=== PATIENT | male | born 1980 | race American Indian/Alaskan Native ===

== ENCOUNTER 2016-08-03 06:03 | Inpatient (IN) | payer OTHER ==
--- NOTE | 2016-08-03 07:09 | Emergency Department Report ---
ED Neuro Deficit HPI - General Chief Complaint: Altered Mental Status Stated Complaint: AMS Time Seen by Provider: 08/03/16 06:28 Source: patient, EMS Mode of arrival: Stretcher Limitations: Altered Mental Status - History of Present Illness Initial Comments: The patient has a limited ability to give a history due to pre-existing a facial and stroke. He presents with a family member. They both state he's had a headache for the past at least 2 days. Over this period as well he has been more confused than usual. The family member also states when he walks he has been drifting to the left. He has previously suffered a right sided stroke with left-sided weakness. However, the family member is stating that this got "99% better". She states there is no change in his speech which is obviously dysarthric and aphasic. Currently the headache is moderate in intensity. Patient does not complain of any neck pain. He's had no fever or chills. -: days(s) Location: other (question increasing left-sided weakness) History of same: Yes Place: home Severity: moderate Quality: weak, other (headache and confusion) Improves With: none Worsens With: none On Anticoagulants: Yes (Coumadin) Context: gradual onset Associated Symptoms: denies other symptoms - Related Data Home Medications: Home Medications Medication Instructions Recorded Confirmed Last Taken Aspirin [Aspirin BABY CHEW TAB] 81 mg PO DAILY 09/01/15 05/28/16 12/09/15 Warfarin [Coumadin] 5 mg PO DAILY@1700 12/10/15 05/28/16 12/09/15 Famotidine [Pepcid] 1 tab PO DAILY 05/28/16 05/28/16 Unknown Lasix TAB 0.5 tab PO DAILY 05/28/16 05/28/16 Unknown carBAMazepine [TEGretol] 100 mg PO BID 05/28/16 05/28/16 Unknown Previous Rx's Medication Instructions Recorded Last Taken Type Butalb/Acetamin/Caff 50-325-40 1 tab PO Q8HR PRN #14 tablet 05/28/16 Unknown Rx [Fioricet] carBAMazepine [TEGretol] 100 mg PO DAILY #30 tab.chew 05/28/16 Unknown Rx levETIRAcetam [Keppra TAB] 750 mg PO BID #60 tablet 05/28/16 Unknown Rx Allergies/Adverse Reactions: Allergies Allergy/AdvReac Type Severity Reaction Status Date / Time No Known Allergies Allergy Verified 05/28/16 14:33 ED Review of Systems ROS: Stated complaint: AMS Other details as noted in HPI Comment: All other systems reviewed and negative ED Past Medical Hx - Past Medical History Hx Hypertension: Yes Hx CVA: Yes (Feb 2015) Hx Heart Attack/AMI: Yes Hx Congestive Heart Failure: Yes Hx Diabetes: No Hx Seizures: Yes Hx Asthma: No Hx COPD: No Hx HIV: No 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 - Surgical History Hx Pacemaker: Yes Hx Internal Defibrillator: Yes - Social History Smoking Status: Former Smoker Substance Use Type: None - Medications Home Medications: Home Medications Medication Instructions Recorded Confirmed Last Taken Type Aspirin [Aspirin BABY CHEW TAB] 81 mg PO DAILY 09/01/15 05/28/16 12/09/15 History Warfarin [Coumadin] 5 mg PO DAILY@1700 12/10/15 05/28/16 12/09/15 History Butalb/Acetamin/Caff 50-325-40 1 tab PO Q8HR PRN #14 tablet 05/28/16 Unknown Rx [Fioricet] Famotidine [Pepcid] 1 tab PO DAILY 05/28/16 05/28/16 Unknown History Lasix TAB 0.5 tab PO DAILY 05/28/16 05/28/16 Unknown History carBAMazepine [TEGretol] 100 mg PO BID 05/28/16 05/28/16 Unknown History carBAMazepine [TEGretol] 100 mg PO DAILY #30 tab.chew 05/28/16 Unknown Rx levETIRAcetam [Keppra TAB] 750 mg PO BID #60 tablet 05/28/16 Unknown Rx ED Neuro Physical Exam - General Limitations: Other (aphasia) General appearance: alert, in no apparent distress Suspected Stroke: No (not acute stroke but can't exclude subacute) - Head Head exam: Present: atraumatic, normocephalic - Eye Eye exam: Present: normal appearance, EOMI, other (slight anisocoria noted). Absent: scleral icterus - ENT ENT exam: Present: normal exam, mucous membranes moist - Neck Neck exam: Present: normal inspection. Absent: tenderness, meningismus - Respiratory Respiratory exam: Present: normal lung sounds bilaterally. Absent: respiratory distress - Cardiovascular Cardiovascular Exam: Present: regular rate, normal rhythm. Absent: systolic murmur, diastolic murmur, rubs, gallop - GI/Abdominal GI/Abdominal exam: Present: soft, normal bowel sounds. Absent: distended, tenderness, guarding, rebound, rigid - Rectal Rectal exam: Present: deferred - Extremities Exam Extremities exam: Present: normal inspection - Back Exam Back exam: Present: normal inspection - Neurological Exam Neurological exam: Present: alert, motor sensory deficit (no briana drift), other (aphasia). Absent: CN II-XII intact (facial paresis) - NIHSS Assessment Interval: Baseline 1a. Level of Consciousness: alert 1b. LOC Questions: answers 1 question correctly 1c. LOC Commands: performs tasks correctly 2. Best Gaze: normal 3. Visual: no visual loss 4. Facial Palsy: partial paralysis 5b. Motor Arm Right: no drift 5a. Motor Arm Left: no drift 6a. Motor Leg Left: no drift 6b. Motor Leg Right: no drift 7. Limb Ataxia: absent 8. Sensory: normal 9. Best Language: mild/moderate aphasia 10. Dysarthria: mild/moderate dysarthria 11. Extinction/Inattention: no abnormality Total Score: 5 Stroke Severity: Moderate Stroke - Psychiatric Psychiatric exam: Present: normal affect, normal mood - Skin Skin exam: Present: warm, dry, intact, normal color. Absent: rash ED Course Vital Signs 08/03/16 08/03/16 08/03/16 06:10 06:11 06:17 Temperature 98.6 F Pulse Rate 72 Respiratory 14 26 H Rate Blood Pressure 137/77 137/77 Blood Pressure 137/77 [Left] O2 Sat by Pulse 99 Oximetry 08/03/16 08/03/16 07:00 07:06 Temperature Pulse Rate 74 73 Respiratory 22 27 H Rate Blood Pressure 137/77 137/77 Blood Pressure [Left] O2 Sat by Pulse 100 100 Oximetry - Reevaluation(s) Reevaluation #1: Neurological change. I didn't find evidence of an acute stroke on neurological exam. I am uncertain as to the patient's baseline. In any case he is not a candidate for TPA certainly as if he had a stroke his symptoms would be of more than 2 days duration. In addition he requires anticoagulation for his reactive conditions. 08/03/16 08:17 Reevaluation #2: Discussed with hospitalist will admit. I reviewed the patient's prior catheterization by Dr. Gao in 2015. Reveals an atrioventricular septal defect with elevated right-sided pressures/moderate pulmonary hypertension. 08/03/16 08:26 - Lab Data Result diagrams: 08/03/16 06:57 08/03/16 06:57 Lab Results 08/03/16 08/03/16 08/03/16 Range/Units 06:57 06:57 06:57 WBC 6.8 (4.5-11.0) K/mm3 RBC 4.89 (3.65-5.03) M/mm3 Hgb 14.7 (11.8-15.2) gm/dl Hct 43.5 (35.5-45.6) % MCV 89 (84-94) fl MCH 30 (28-32) pg MCHC 34 (32-34) % RDW 15.2 (13.2-15.2) % Plt Count 160 (140-440) K/mm3 Lymph % (Auto) 16.2 (13.4-35.0) % Gladwin % (Auto) 7.9 H (0.0-7.3) % Eos % (Auto) 0.9 (0.0-4.3) % Baso % (Auto) 0.6 (0.0-1.8) % Lymph # 1.1 L (1.2-5.4) K/mm3 Gladwin # 0.5 (0.0-0.8) K/mm3 Eos # 0.1 (0.0-0.4) K/mm3 Baso # 0.0 (0.0-0.1) K/mm3 Seg Neutrophils % 74.4 H (40.0-70.0) % Seg Neutrophils # 5.1 (1.8-7.7) K/mm3 PT 14.8 (12.2-14.9) Sec. INR 1.17 H (0.87-1.13) APTT 28.0 (24.2-36.6) Sec. Thrombin Time (15.1-19.6) Sec. Sodium 142 (137-145) mmol/L Potassium 3.5 L (3.6-5.0) mmol/L Chloride 99.9 (98-107) mmol/L Carbon Dioxide 25 (22-30) mmol/L Anion Gap 21 mmol/L BUN 8 L (9-20) mg/dL Creatinine 0.9 (0.8-1.5) mg/dL Estimated GFR > 60 ml/min BUN/Creatinine Ratio 8.88 % Glucose 120 H (75-100) mg/dL Calcium 9.4 (8.4-10.2) mg/dL Total Bilirubin (0.1-1.2) mg/dL Direct Bilirubin (0-0.2) mg/dL Indirect Bilirubin mg/dL AST (5-40) units/L ALT (7-56) units/L Alkaline Phosphatase (35-129) units/L Troponin T < 0.010 (0.00-0.029) ng/mL NT-Pro-B Natriuret Pep (0-450) pg/mL Total Protein (6.3-8.2) g/dL Albumin (3.9-5) g/dL Albumin/Globulin Ratio % 08/03/16 08/03/16 Range/Units 06:57 06:57 WBC (4.5-11.0) K/mm3 RBC (3.65-5.03) M/mm3 Hgb (11.8-15.2) gm/dl Hct (35.5-45.6) % MCV (84-94) fl MCH (28-32) pg MCHC (32-34) % RDW (13.2-15.2) % Plt Count (140-440) K/mm3 Lymph % (Auto) (13.4-35.0) % Gladwin % (Auto) (0.0-7.3) % Eos % (Auto) (0.0-4.3) % Baso % (Auto) (0.0-1.8) % Lymph # (1.2-5.4) K/mm3 Gladwin # (0.0-0.8) K/mm3 Eos # (0.0-0.4) K/mm3 Baso # (0.0-0.1) K/mm3 Seg Neutrophils % (40.0-70.0) % Seg Neutrophils # (1.8-7.7) K/mm3 PT (12.2-14.9) Sec. INR (0.87-1.13) APTT (24.2-36.6) Sec. Thrombin Time 16.0 (15.1-19.6) Sec. Sodium (137-145) mmol/L Potassium (3.6-5.0) mmol/L Chloride (98-107) mmol/L Carbon Dioxide (22-30) mmol/L Anion Gap mmol/L BUN (9-20) mg/dL Creatinine (0.8-1.5) mg/dL Estimated GFR ml/min BUN/Creatinine Ratio % Glucose (75-100) mg/dL Calcium (8.4-10.2) mg/dL Total Bilirubin 0.5 (0.1-1.2) mg/dL Direct Bilirubin < 0.2 (0-0.2) mg/dL Indirect Bilirubin 0.3 mg/dL AST 20 (5-40) units/L ALT 12 (7-56) units/L Alkaline Phosphatase 121 (35-129) units/L Troponin T (0.00-0.029) ng/mL NT-Pro-B Natriuret Pep 974.2 H (0-450) pg/mL Total Protein 7.2 (6.3-8.2) g/dL Albumin 4.3 (3.9-5) g/dL Albumin/Globulin Ratio 1.5 % Laboratory Results - last 24 hr 08/03/16 08/03/16 08/03/16 06:57 06:57 06:57 WBC 6.8 RBC 4.89 Hgb 14.7 Hct 43.5 MCV 89 MCH 30 MCHC 34 RDW 15.2 Plt Count 160 Lymph % (Auto) 16.2 Gladwin % (Auto) 7.9 H Eos % (Auto) 0.9 Baso % (Auto) 0.6 Lymph # 1.1 L Gladwin # 0.5 Eos # 0.1 Baso # 0.0 Seg Neutrophils % 74.4 H Seg Neutrophils # 5.1 PT 14.8 INR 1.17 H APTT 28.0 Thrombin Time Sodium 142 Potassium 3.5 L Chloride 99.9 Carbon Dioxide 25 Anion Gap 21 BUN 8 L Creatinine 0.9 Estimated GFR > 60 BUN/Creatinine Ratio 8.88 Glucose 120 H Calcium 9.4 Total Bilirubin Direct Bilirubin Indirect Bilirubin AST ALT Alkaline Phosphatase Troponin T < 0.010 NT-Pro-B Natriuret Pep Total Protein Albumin Albumin/Globulin Ratio 08/03/16 08/03/16 06:57 06:57 WBC RBC Hgb Hct MCV MCH MCHC RDW Plt Count Lymph % (Auto) Gladwin % (Auto) Eos % (Auto) Baso % (Auto) Lymph # Gladwin # Eos # Baso # Seg Neutrophils % Seg Neutrophils # PT INR APTT Thrombin Time 16.0 Sodium Potassium Chloride Carbon Dioxide Anion Gap BUN Creatinine Estimated GFR BUN/Creatinine Ratio Glucose Calcium Total Bilirubin 0.5 Direct Bilirubin < 0.2 Indirect Bilirubin 0.3 AST 20 ALT 12 Alkaline Phosphatase 121 Troponin T NT-Pro-B Natriuret Pep 974.2 H Total Protein 7.2 Albumin 4.3 Albumin/Globulin Ratio 1.5 - EKG Data -: EKG Interpreted by Me paced rhythm 08/03/16 08:12 - Radiology Data interpreted by me: CT of the head demonstrates encephalomalacia in the right upper parietal region secondary to prior stroke. No acute process. Chest x-ray shows cardiomegaly. No acute process. - Medical Decision Making Patient has been having headaches and disorientation for the past 2 days. Family states he is drifting to the left when he walks. A subacute stroke could not be excluded. However it is not radiographically evident. He is subtherapeutic on his INR. I will defer choice of treatment of that to the hospitalist staff. Patient will be admitted for further care and evaluation. Critical care attestation.: If time is entered above; I have spent that time in minutes in the direct care of this critically ill patient, excluding procedure time. ED Disposition Clinical Impression: Elevated brain natriuretic peptide (BNP) level, Ventricular septal defect, Subtherapeutic international normalized ratio (INR), Pulmonary hypertension Headache Qualifiers: Headache type: unspecified Headache chronicity pattern: unspecified pattern Intractability: not intractable Qualified Code(s): R51 - Headache Altered mental status Qualifiers: Altered mental status type: disorientation Qualified Code(s): R41.0 - Disorientation, unspecified Disposition: OP ADMITTED IP TO THIS HOSP Is pt being admited?: Yes Does the pt Need Aspirin: Yes Condition: Stable Referrals: PRIMARY CARE, [Primary Care Provider] - 3-5 Days Time of Disposition: 08:26
[2016-08-03 07:14] LABS: Basophils % (Auto) 0.6 % (0.0-1.8); Eosinophils % (Auto) 0.9 % (0.0-4.3); Hematocrit 43.5 % (35.5-45.6); Hemoglobin 14.7 gm/dl (11.8-15.2); Mean Corpuscular HGB Conc 34 % (32-34); Mean Corpuscular Hemoglobin 30 pg (28-32); Mean Corpuscular Volume 89 fl (84-94); Platelet Count 160 K/mm3 (140-440); Red Blood Count 4.89 M/mm3 (3.65-5.03); Red Cell Distribution Width 15.2 % (13.2-15.2); White Blood Count 6.8 K/mm3 (4.5-11.0)
[2016-08-03 07:24] LABS: INR 1.17 (0.87-1.13)
[2016-08-03 07:29] LABS: BUN/Creatinine Ratio 8.88; Blood Urea Nitrogen 8 mg/dL (9-20); Calcium 9.4 mg/dL (8.4-10.2); Carbon Dioxide 25 mmol/L (22-30); Chloride 99.9 mmol/L (98-107); Glucose 120 mg/dL (75-100); Potassium 3.5 mmol/L (3.6-5.0); Sodium 142 mmol/L (137-145)
[2016-08-03 07:34] LABS: Anion Gap 21 mmol/L
--- NOTE | 2016-08-03 07:35 | Cat Scan Report ---
FINAL REPORT PROCEDURE: CT HEAD/BRAIN WO CON TECHNIQUE: Computerized tomography of the head was performed without contrast material. HISTORY: Acute neurologic deficits < 6hrs or sx present upon awakening COMPARISON: Prior head CT scans of November 21, 2015 September 01, 2015 FINDINGS: Skull and scalp: Normal. Paranasal sinuses: There is a small 1 centimeter polyp or nodular area mucosal thickening in the upper posterior left maxillary sinus. This is not completely seen on this brain scan. This is unchanged from the prior scans.. Ventricles and subarachnoid spaces: Normal. Cerebrum: There is no CT evidence of hemorrhage or edema or shift or distinct acute finding. Again seen is moderate size area of encephalomalacia in the right temporoparietal lobe. This is unchanged from both prior exams and again as described previously it could be an old infarct although it is nonspecific.. Cerebellum and brainstem: No evidence of hemorrhage, acute infarction or mass. Vasculature: Normal. Comments: None. IMPRESSION: 1. There is no CT evidence of intracranial hemorrhage or edema or shift or distinct acute finding 2. Again seen is moderate sized area of encephalomalacia in right temporoparietal lobe similar to both prior exams which could be an old infarct 3. Small 1 centimeter polyp or nodular area mucosal thickening partially seen in the partially visualized upper posterior left maxillary sinus, similar to prior exams
[2016-08-03 08:05] LABS: Alanine Aminotransferase 12 units/L (7-56); Albumin 4.3 g/dL (3.9-5); Albumin/Globulin Ratio 1.5 %; Alkaline Phosphatase 121 units/L (35-129); Bilirubin,Total 0.5 mg/dL (0.1-1.2); Total Protein 7.2 g/dL (6.3-8.2)
[2016-08-03 08:08] LABS: Bilirubin,Direct < 0.2 mg/dL (0-0.2); Bilirubin,Indirect 0.3 mg/dL
[2016-08-03] MEDS ORDERED: BABY ASPIRIN PO ONE (08:29)
[2016-08-03 08:32] LABS: Bilirubin,Urine NEG (Negative); Blood,Urine NEG (Negative); Ketones,Urine NEG (Negative); Leukocyte Esterase,Urine NEG (Negative); Mucus,Urine 2+ /HPF; Nitrite,Urine NEG (Negative); Protein,Urine <15 mg/dL mg/dL (Negative); Urobilinogen,Urine < 2.0 mg/dL (<2.0)
[2016-08-03] MEDS ORDERED: ATIVAN ONE (08:32)
[2016-08-03] MEDS ORDERED: KEPPRA 1,000 MG/NS 0.75% 100ML 100 ML IV ONE ×2 (08:34→08:40)
--- NOTE | 2016-08-03 09:04 | XRay Report ---
Single view chest: Compared to 10/23/15. History: Hypertension. Findings: Cardiomegaly ventricular lead. Stable pacemaker. No consolidation, pneumothorax or pleural effusion. The left CP angle obscured by the enlarged heart. Impression: Cardiomegaly. No acute lung changes.
[2016-08-03] MEDS ORDERED: KEPPRA 1,000 MG in NACL 0.9% 100 ML IV SCH (11:59)
[2016-08-03] MEDS ORDERED: ATIVAN IV PRN (11:59)
[2016-08-03] MEDS: PEPCID PO SCH (12:30)
[2016-08-03] MEDS: LOVENOX SUB-Q SCH (12:36)
--- NOTE | 2016-08-03 13:42 | History and Physical Report ---
History of Present Illness Date of examination: 08/03/16 Date of admission: 08/03/16 09:20 Chief complaint: Altered level of consciousness left-sided weakness and weakness seizure in the ED History of present illness: 35-year-old -[place] male patient well known to our services multiple admissions in the past with medical noncompliance secondary to social issues Past medical history of seizure disorder, CVA with residual left-sided weakness , cared by family member, was brought to the emergency room with altered level of consciousness and left-sided weakness Patient is being admitted for further evaluation of the Route neurological symptoms when he suddenly developed tonic-clonic seizure, received loading dose of Keppra, and was placed on seizure precautions When I evaluated the patient patient was alert and awake responding to simple questions appropriately not in acute distress Patient denies chest pain shortness of breath, denies headache dizziness Denies nausea and vomiting CT head negative for intracranial hemorrhage edema or acute infiltrate Patient has moderate size 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 denies: smoking, alcohol abuse, prescription drug abuse Family history: hypertension Medications and Allergies Allergies Allergy/AdvReac Type Severity Reaction Status Date / Time No Known Allergies Allergy Verified 05/28/16 14:33 Home Medications Medication Instructions Recorded Confirmed Last Taken Type Warfarin [Coumadin] 5 mg PO DAILY@1700 12/10/15 08/03/16 12/09/15 History Famotidine [Pepcid] 1 tab PO DAILY 05/28/16 08/03/16 Unknown History Lasix TAB 0.5 tab PO DAILY 05/28/16 08/03/16 Unknown History carBAMazepine [TEGretol] 100 mg PO BID 05/28/16 08/03/16 Unknown History levETIRAcetam [Keppra TAB] 750 mg PO BID #60 tablet 05/28/16 08/03/16 Unknown Rx Active Meds: Active Medications Carbamazepine (Tegretol) 100 mg PO BID [facility] Last Admin: 08/03/16 12:30 Dose: 100 mg Enoxaparin Sodium (Lovenox) 40 mg SUB-Q QDAY [facility] Last Admin: 08/03/16 12:36 Dose: 40 mg Famotidine (Pepcid) 20 mg PO DAILY [facility] Last Admin: 08/03/16 12:30 Dose: 20 mg Levetiracetam 1,000 mg/ Sodium (Chloride) 110 mls @ 400 mls/hr IV DIRECT MANDY Lorazepam (Ativan) 1 mg IV Q4H PRN PRN Reason: Seizures Warfarin Sodium (Coumadin) 5 mg PO DAILY@1700 MANDY PRN Reason: Protocol Review of Systems Constitutional: weakness, no weight loss, no weight gain, no fever, no chills Ears, nose, mouth and throat: no nasal congestion, no nasal discharge Cardiovascular: no chest pain, no orthopnea, no palpitations Respiratory: no cough with sputum, no shortness of breath Gastrointestinal: no abdominal pain, no nausea, no vomiting Genitourinary Male: no dysuria, no hematuria Musculoskeletal: no myalgias, no arthritis Integumentary: no rash, no lesions Neurological: weakness, seizures, change in mentation, no paralysis, no syncope Psychiatric: no anxiety, no depression Endocrine: no cold intolerance, no heat intolerance, no polydipsia, no polyuria Hematologic/Lymphatic: no easy bruising, no easy bleeding Allergic/Immunologic: no urticaria, no allergic rhinitis Exam - Constitutional Vitals: Temp Pulse Resp BP Pulse Ox 98.6 F 85 17 109/58 100 08/03/16 06:10 08/03/16 12:00 08/03/16 12:00 08/03/16 12:00 08/03/16 12:00 General appearance: Present: no acute distress, cachectic, other (alert and awake responds to simple questions) - EENT Eyes: Present: PERRL, EOM intact - Neck Neck: Present: supple, normal ROM - Respiratory Respiratory effort: normal Respiratory: bilateral: diminished, negative: rales, rhonchi, wheezing - Cardiovascular Rhythm: regular Heart Sounds: Present: S1 & S2 - Extremities Extremities: no ischemia, pulses intact, pulses symmetrical Peripheral Pulses: within normal limits - Abdominal General gastrointestinal: Present: soft, non-tender, non-distended, normal bowel sounds - Integumentary Integumentary: Present: clear, warm - Musculoskeletal Musculoskeletal: left sided weakness - Psychiatric Psychiatric: appropriate mood/affect, other (responds to simple questions, confused at times) - Neurologic Neurologic: other (residual left-sided weakness) Results - Labs CBC & Chem 7: 08/03/16 06:57 08/03/16 06:57 Assessment and Plan - Patient Problems (1) Metabolic encephalopathy Current Visit: Yes Status: Acute Plan to address problem: Multifactorial, secondary to neurological symptoms, seizure episode underlying disease process Neurochecks, closely monitor (2) Medical non-compliance Current Visit: Yes Status: Acute Plan to address problem: Counseling done patient's caregiver was strongly advised to be complaints of medications Case management and social service manager to assist with medications and DC planning when medically stable (3) HTN (hypertension) Current Visit: No Status: Acute Plan to address problem: Moderate control, closely monitor blood pressures when necessary hydralazine (4) Hyperammonemia Current Visit: No Status: Acute Plan to address problem: Lactulose as needed, closely monitor ammonia level (5) Seizure Current Visit: No Status: Acute Plan to address problem: Witnessed seizure episode in the ED, secondary to medical noncompliance Patient was not on seizure medications for more than one month according to the family member Patient received loading dose of Keppra and Ativan, seizure precautions Increased dose of Keppra 1000 mg twice a day, and phenobarbital Patient had EEG in September 01, negative (6) A-fib Current Visit: No Status: Chronic Qualifiers: Atrial fibrillation type: chronic Qualified Code(s): I48.2 - Chronic atrial fibrillation Plan to address problem: Rate control, continue beta blockers, consider cardiology evaluation if needed (7) Subtherapeutic international normalized ratio (INR) Current Visit: Yes Status: Acute Plan to address problem: Patient is on Coumadin for A. fib, subtherapeutic INR secondary to noncompliance Patient and caregiver counseled the importance of adhering to the treatment plan to resume Coumadin, monitor INR To therapeutic goal between 2 and 3 (8) DVT prophylaxis Current Visit: No Status: Acute Plan to address problem: DVT prophylaxis with Lovenox until INR is presumptive peptic --DC planning. Case management Patient's condition treatment plan discussed in detail with the patient family member at the bedside ER physician and the nurse
[2016-08-03] MEDS ORDERED: CEPHULAC PO PRN (18:00)
[2016-08-03] MEDS: COUMADIN PO SCH (18:04)
[2016-08-03] MEDS: TYLENOL PO PRN (20:20)
[2016-08-03] MEDS: CEPHULAC PO SCH (20:20)
[2016-08-04] MEDS: CEPHULAC PO SCH (04:19)
[2016-08-04 06:08] LABS: Basophils % (Auto) 0.5 % (0.0-1.8); Eosinophils % (Auto) 2.6 % (0.0-4.3); Hemoglobin 14.2 gm/dl (11.8-15.2); Mean Corpuscular HGB Conc 34 % (32-34); Mean Corpuscular Hemoglobin 30 pg (28-32); Mean Corpuscular Volume 87 fl (84-94); Platelet Count 152 K/mm3 (140-440); Red Blood Count 4.82 M/mm3 (3.65-5.03); Red Cell Distribution Width 15.4 % (13.2-15.2); White Blood Count 6.9 K/mm3 (4.5-11.0)
[2016-08-04 06:18] LABS: INR 1.21 (0.87-1.13)
[2016-08-04 06:28] LABS: Anion Gap 20 mmol/L; BUN/Creatinine Ratio 11.25; Blood Urea Nitrogen 9 mg/dL (9-20); Calcium 8.9 mg/dL (8.4-10.2); Carbon Dioxide 25 mmol/L (22-30); Chloride 99.5 mmol/L (98-107); Glucose 96 mg/dL (75-100); Magnesium 1.9 mg/dL (1.7-2.3); Potassium 3.2 mmol/L (3.6-5.0); Sodium 141 mmol/L (137-145)
--- NOTE | 2016-08-04 09:01 | Admit Criteria Form ---
Admission Criteria Documentation: SEIZURE Clinical Indications for Admission to Inpatient Care (Place 'X' for any and all applicable criteria): Admission is indicated for seizure and ANY ONE of the following(1)(2)(3)(4)(5): [X]I. Inpatient admission required rather than observation care (Also use Seizure: Observation Care Criteria as appropriate) because of ANY ONE of the following: [X]a) Altered mental status that is severe or persistent [ ]b) New focal neurologic deficit that is severe or persistent [ ]c) Metabolic disorder (eg, hypoglycemia, hyponatremia) that is severe or persistent [X]d) Recurrent seizure []e) Outpatient antiseizure regimen cannot be established (eg, patient cannot tolerate medication, initiation requires inpatient care) [X]f) Need for ongoing intravenous infusion of antiseizure medication [ ]g) Cardiac arrhythmias of immediate concern [ ]h) Cerebral bleeding, hydrocephalus, or vasospasm monitoring (14) [ ]i) Increased intracranial pressure or cerebral edema monitoring (15) [X]j) Other treatment or monitoring requiring inpatient admission [ ]II. Status epilepticus [A] or repetitive seizures not controlled with emergent treatment (6)(8) [ ]III. Brain disorder (eg, tumor, edema, and hydrocephalus) that requiring monitoring or intervention available only at inpatient level of care. [ ]IV. Brain insult (eg, severe trauma, stroke, drug toxicity, or withdrawal) that requires monitoring or intervention available only at inpatient level of care (10)(11) Extended stay beyond goal length of stay may be needed for (22) [ ]a) Complications of status epilepticus [ ]b) Refractory status epilepticus [ ]c) Etiology-specific therapy for conditions such as [employer] infection, head injury,eclampsia, severe metabolic abnormalities, and brain tumor [ ]d) Residual neurologic damage, [ ]e) Initiation of significant change to anticonvulsant treatment [ ]f) Older patients (65 years or older) [ ]g) Patient requiring intubation (eg, to protect airway) The original [facility] [employer] ([email or web address]) content created by [facility] [employer] has been revised. The portions of the content which have been revised are identified through the use of italic text or in bold, and [facility] has neither reviewed nor approved the modified material. All other unmodified content is copyright [facility]. Please see references footnoted in the original [facility] edition 2016 Admission Criteria Met: Yes
[2016-08-04] MEDS ORDERED: K-DUR PO ONE (10:00)
[2016-08-04] MEDS: PEPCID PO SCH (10:04)
[2016-08-04] MEDS: LOVENOX SUB-Q SCH (10:04)
--- NOTE | 2016-08-04 16:02 | Progress Note ---
Assessment and Plan Assessment and plan: -- Seizure Current Visit: No Status: Acute Plan to address problem: Witnessed seizure episode in the ED, secondary to medical noncompliance No new seizure episodes since admission, continue antiepileptic medications Seizure precautions -- Metabolic encephalopathy Current Visit: Yes Status: Acute Plan to address problem: Multifactorial, back to baseline -- HTN (hypertension) Current Visit: No Status: Acute Plan to address problem: Moderate control, closely monitor blood pressures when necessary hydralazine -- Hyperammonemia Current Visit: No Status: Acute Plan to address problem: ammonia levels are back to normal DC lactulose -- A-fib Current Visit: No Status: Chronic Qualifiers: Atrial fibrillation type: chronic Qualified Code(s): I48.2 - Chronic atrial fibrillation Plan to address problem: Rate control, continue beta blockers, consider cardiology evaluation if needed -- Subtherapeutic international normalized ratio (INR) Current Visit: Yes Status: Acute Plan to address problem: Patient is on Coumadin for A. fib, subtherapeutic INR secondary to noncompliance Patient and caregiver counseled the importance of adhering to the treatment plan to resume Coumadin, monitor INR To therapeutic goal between 2 and 3 --Medical non-compliance Current Visit: Yes Status: Acute Plan to address problem: Counseling done patient's caregiver was strongly advised to be complaints of medications Case management and social welfare research worker to assist with medications and DC planning when medically stable --DVT prophylaxis Current Visit: No Status: Acute Plan to address problem: DVT prophylaxis with Lovenox until INR is therapeutic --DC planning. Case management Possible discharge in 1-2 days if stable History Interval history: Patient seen and evaluated medical records reviewed Patient feels better no new episodes of seizures since admission Alert and awake responding appropriately Denies chest pain or shortness of breath Denies headache or dizziness Hospitalist Physical - Constitutional Vitals: Temp Pulse Resp BP Pulse Ox 97.9 F 52 L 20 119/59 96 08/04/16 11:43 08/04/16 11:43 08/04/16 11:43 08/04/16 11:43 08/04/16 11:43 General appearance: Present: no acute distress, cachectic, other (alert and awake responds to simple questions) - EENT Eyes: Present: PERRL, EOM intact - Neck Neck: Present: supple, normal ROM - Respiratory Respiratory effort: normal Respiratory: negative: rales, rhonchi, wheezing - Cardiovascular Rhythm: regular Heart Sounds: Present: S1 & S2 - Extremities Extremities: no ischemia, pulses intact, pulses symmetrical Peripheral Pulses: within normal limits - Abdominal General gastrointestinal: soft, non-tender, non-distended, normal bowel sounds - Integumentary Integumentary: Present: clear, warm - Psychiatric Psychiatric: appropriate mood/affect, cooperative - Neurologic Neurologic: other (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) Results - Labs CBC & Chem 7: 08/04/16 05:27 08/04/16 05:27 Labs: Laboratory Last Values WBC 6.9 K/mm3 (4.5-11.0) 08/04/16 05:27 RBC 4.82 M/mm3 (3.65-5.03) 08/04/16 05:27 Hgb 14.2 gm/dl (11.8-15.2) 08/04/16 05:27 Hct 42.0 % (35.5-45.6) 08/04/16 05:27 MCV 87 fl (84-94) 08/04/16 05:27 MCH 30 pg (28-32) 08/04/16 05:27 MCHC 34 % (32-34) 08/04/16 05:27 RDW 15.4 % (13.2-15.2) H 08/04/16 05:27 Plt Count 152 K/mm3 (140-440) 08/04/16 05:27 Lymph % (Auto) 18.9 % (13.4-35.0) 08/04/16 05:27 Graves % (Auto) 6.6 % (0.0-7.3) 08/04/16 05:27 Eos % (Auto) 2.6 % (0.0-4.3) 08/04/16 05:27 Baso % (Auto) 0.5 % (0.0-1.8) 08/04/16 05:27 Lymph # 1.3 K/mm3 (1.2-5.4) 08/04/16 05:27 Graves # 0.5 K/mm3 (0.0-0.8) 08/04/16 05:27 Eos # 0.2 K/mm3 (0.0-0.4) 08/04/16 05:27 Baso # 0.0 K/mm3 (0.0-0.1) 08/04/16 05:27 Seg Neutrophils % 71.4 % (40.0-70.0) H 08/04/16 05:27 Seg Neutrophils # 4.9 K/mm3 (1.8-7.7) 08/04/16 05:27 PT 15.2 Sec. (12.2-14.9) H 08/04/16 05:27 INR 1.21 (0.87-1.13) H 08/04/16 05:27 APTT 28.0 Sec. (24.2-36.6) 08/03/16 06:57 Thrombin Time 16.0 Sec. (15.1-19.6) 08/03/16 06:57 Sodium 141 mmol/L (137-145) 08/04/16 05:27 Potassium 3.2 mmol/L (3.6-5.0) L 08/04/16 05:27 Chloride 99.5 mmol/L (98-107) 08/04/16 05:27 Carbon Dioxide 25 mmol/L (22-30) 08/04/16 05:27 Anion Gap 20 mmol/L 08/04/16 05:27 BUN 9 mg/dL (9-20) 08/04/16 05:27 Creatinine 0.8 mg/dL (0.8-1.5) 08/04/16 05:27 Estimated GFR > 60 ml/min 08/04/16 05:27 BUN/Creatinine Ratio 11.25 % 08/04/16 05:27 Glucose 96 mg/dL (75-100) 08/04/16 05:27 Calcium 8.9 mg/dL (8.4-10.2) 08/04/16 05:27 Magnesium 1.9 mg/dL (1.7-2.3) 08/04/16 05:27 Total Bilirubin 0.5 mg/dL (0.1-1.2) 08/03/16 06:57 Direct Bilirubin < 0.2 mg/dL (0-0.2) 08/03/16 06:57 Indirect Bilirubin 0.3 mg/dL 08/03/16 06:57 AST 20 units/L (5-40) 08/03/16 06:57 ALT 12 units/L (7-56) 08/03/16 06:57 Alkaline Phosphatase 121 units/L (35-129) 08/03/16 06:57 Ammonia 50.0 umol/L (25-60) 08/04/16 05:27 Troponin T < 0.010 ng/mL (0.00-0.029) 08/03/16 06:57 NT-Pro-B Natriuret Pep 974.2 pg/mL (0-450) H 08/03/16 06:57 Total Protein 7.2 g/dL (6.3-8.2) 08/03/16 06:57 Albumin 4.3 g/dL (3.9-5) 08/03/16 06:57 Albumin/Globulin Ratio 1.5 % 08/03/16 06:57 Urine Color Yellow (Yellow) 08/03/16 07:59 Urine Turbidity Clear (Clear) 08/03/16 07:59 Urine pH 5.0 (5.0-7.0) 08/03/16 07:59 Ur Specific [place] 1.020 (1.003-1.030) 08/03/16 07:59 Urine Protein <15 mg/dl mg/dL (Negative) 08/03/16 07:59 Urine Glucose (UA) Neg mg/dL (Negative) 08/03/16 07:59 Urine Ketones Neg mg/dL (Negative) 08/03/16 07:59 Urine Blood Neg (Negative) 08/03/16 07:59 Urine Nitrite Neg (Negative) 08/03/16 07:59 Urine Bilirubin Neg (Negative) 08/03/16 07:59 Urine Urobilinogen < 2.0 mg/dL (<2.0) 08/03/16 07:59 Ur Leukocyte Esterase Neg (Negative) 08/03/16 07:59 Urine WBC (Auto) 4.0 /HPF (0.0-6.0) 08/03/16 07:59 Urine RBC (Auto) 2.0 /HPF (0.0-6.0) 08/03/16 07:59 U Epithel Cells (Auto) 3.0 /HPF (0-13.0) 08/03/16 07:59 Urine Mucus 2+ /HPF 08/03/16 07:59 Blood Type B NEGATIVE 08/03/16 07:19 Antibody Screen Negative 08/03/16 07:19
[2016-08-04] MEDS: COUMADIN PO SCH (17:16)
[2016-08-04] MEDS ORDERED: ROBITUSSIN PO PRN (21:32)
[2016-08-04] MEDS ORDERED: KEPPRA 1,000 MG in NACL 0.9% 100 ML IV SCH (22:00)
[2016-08-04] MEDS: TYLENOL PO PRN (22:24)
[2016-08-04] MEDS: KEPPRA PO SCH (22:24)
[2016-08-05 05:52] LABS: INR 1.26 (0.87-1.13)
[2016-08-05 05:53] LABS: Magnesium 1.9 mg/dL (1.7-2.3); Potassium 3.7 mmol/L (3.6-5.0)
[2016-08-05] MEDS: TYLENOL PO PRN (08:52)
[2016-08-05] MEDS ORDERED: KEPPRA PO SCH (10:00)
[2016-08-05] MEDS: LOVENOX SUB-Q SCH (10:49)
[2016-08-05] MEDS: PEPCID PO SCH (10:49)
[2016-08-05] MEDS: KEPPRA PO SCH (10:49)
[2016-08-05 12:31] VITALS: BP 112/65
--- NOTE | 2016-08-05 12:54 | Discharge Summary ---
Providers - Providers Date of Admission: 08/03/16 09:20 Date of discharge: 08/05/16 Attending physician: ESTEFANY BARNEY 08/03/16 17:33 Physical Therapy Evaluation and Treat [CONS] Routine Comment: Reason For Exam: lt weakness/seizures Primary care physician: DYNAMOMETER MECHANIC Hospitalization Reason for admission: left-sided weakness and seizure Condition: Stable Pertinent studies: CT head without contrast; no acute intracranial hemorrhage or infarct Moderate size offender from [place] on the right temporoparietal Small 1 cm polypoid nodular helium mucosal thickening partially seen in the upper left maxillary sinus is old finding Hospital course: 35-year-old -[place] male patient well known to our services medical noncompliance secondary to social issues was admitted through emergency room with left-sided weakness and witnessed seizure Patient is evaluated and admitted to the hospital symptomatically managed, CT head was negative for intracranial abnormality, also has history of A. fib rate controlled, on chronic anticoagulations of peptic INR significant noncompliance Patient was admitted to the hospital symptomatically managed, electrolyte imbalances were corrected Patient also has elevated ammonia lactulose with significant improvement Gracious comfortable in bed alert awake oriented 3 not in acute distress vital signs are stable physical examination done by me prior to discharging the patient is unremarkable Patient advised periodic monitoring of INR to therapeutic goal between 2 and 3, pulse advised to comply with medications and diet Patient verbalized understanding DC home and follow with primary care physician in one week Disposition: DISCHARGED TO HOME OR SELFCARE Time spent for discharge: 33 min - Discharge Diagnoses (1) Medical non-compliance Status: Acute (2) Metabolic encephalopathy Status: Acute (3) Seizure disorder Status: Chronic (4) HTN (hypertension) Status: Chronic Qualifiers: Hypertension type: H (5) Hyperammonemia Status: Acute (6) Supratherapeutic INR Status: Acute (7) A-fib Status: Chronic Qualifiers: Atrial fibrillation type: chronic (8) Chronic anticoagulation Status: Acute Core Measure Documentation - Palliative Care Palliative Care/ Comfort Measures: Not Applicable - Core Measures Any of the following diagnoses?: none Exam - Constitutional Vitals: Temp Pulse Resp BP Pulse Ox 97.5 F L 69 20 112/65 98 08/05/16 12:30 08/05/16 12:30 08/05/16 12:30 08/05/16 12:30 08/05/16 12:30 General appearance: Present: no acute distress, well-nourished - EENT Eyes: Present: PERRL, EOM intact - Neck Neck: Present: supple, normal ROM - Respiratory Respiratory effort: normal Respiratory: bilateral: diminished, negative: rales, rhonchi, wheezing - Cardiovascular Rhythm: regular Heart Sounds: Present: S1 & S2 - Extremities Extremities: no ischemia, pulses intact, pulses symmetrical Peripheral Pulses: within normal limits - Abdominal General gastrointestinal: Present: soft, non-tender, non-distended, normal bowel sounds - Integumentary Integumentary: Present: clear, warm - Musculoskeletal Musculoskeletal: strength equal bilaterally, generalized weakness - Psychiatric Psychiatric: appropriate mood/affect, cooperative - Neurologic Neurologic: CNII-XII intact, moves all extremities Plan Activity: advance as tolerated, fall precautions Diet: advance as tolerated, other (Mechanical soft Diet) Additional Instructions: frequent INR. Next INR at Dr Rodriguez's office. Follow seizure precautions. Advised compliance with medications and diet Follow up with: PRIMARY CARE, [Primary Care Provider] - 3-5 Days Forms: Warfarin Discharge Instruction, Discharge Signature Page Prescriptions: Lasix TAB 0.5 tab PO DAILY #14 Famotidine [Pepcid] 1 tab PO DAILY #30 tablet Warfarin [Coumadin] 5 mg PO DAILY@1700 #30 tablet carBAMazepine [TEGretol] 100 mg PO BID #60 tab.chew levETIRAcetam [Keppra TAB] 750 mg PO BID #60 tablet
== END 2016-08-05 15:44 | disposition home or self-care (01) | DRG 100 ==
LOC: ED 06:03 → 4A 09:20
PROVIDERS: ADMIT Internal Medicine; ATTEND Internal Medicine
DX: R56.9 Unspecified convulsions (principal); G93.41 Metabolic encephalopathy; E72.20 Disorder of urea cycle metabolism, unspecified; I48.2 Chronic atrial fibrillation; I10 Essential (primary) hypertension; Z86.73 Personal history of transient ischemic attack (TIA), and cerebral infarction without residual deficits; Z95.810 Presence of automatic (implantable) cardiac defibrillator; Z91.19 Patient's noncompliance with other medical treatment and regimen; Z82.49 Family history of ischemic heart disease and other diseases of the circulatory system
CPT/HCPCS: 36415; 70450; 71010; 80048; 80074; 81001; 82140; 83735; 83880; 84132; 84484; 85025; 85610; 85670; 85730; 86850; 86900; 86901; 93005; 93010; 94760; 96365; 96372; J1650; J1953; J2060

== ENCOUNTER 2017-10-13 10:48 | Emergency (ER) | payer MEDICARE ==
[2017-10-13 12:39] LABS: Basophils % (Auto) 0.4 % (0.0-1.8); Eosinophils # (Auto) 0.1 K/mm3 (0.0-0.4); Eosinophils % (Auto) 0.7 % (0.0-4.3); Hematocrit 43.5 % (35.5-45.6); Hemoglobin 14.4 gm/dl (11.8-15.2); Lymphocytes # (Auto) 0.8 K/mm3 (1.2-5.4); Lymphocytes % (Auto) 9.4 % (13.4-35.0); Mean Corpuscular HGB Conc 33 % (32-34); Mean Corpuscular Hemoglobin 29 pg (28-32); Mean Corpuscular Volume 89 fl (84-94); Monocytes # (Auto) 0.3 K/mm3 (0.0-0.8); Monocytes % (Auto) 3.1 % (0.0-7.3); Platelet Count 227 K/mm3 (140-440); Red Blood Count 4.91 M/mm3 (3.65-5.03); Red Cell Distribution Width 14.6 % (13.2-15.2)
[2017-10-13 12:49] LABS: BUN/Creatinine Ratio 18; Blood Urea Nitrogen 14 mg/dL (9-20); Calcium 9.7 mg/dL (8.4-10.2); Hemolysis Index 14
[2017-10-13 12:50] LABS: INR 1.98 (0.87-1.13)
--- NOTE | 2017-10-13 13:30 | Emergency Department Report ---
Blank Doc - Documentation Documentation: Patient is a 36-year-old -[place] male who is presenting with 1 week of productive cough. Patient states he also has shortness of breath and dizziness as well. Chest x-ray be ordered as well as basic blood work.
--- NOTE | 2017-10-13 13:54 | XRay Report ---
CHEST XRAY, 2 VIEWS: History: Productive cough. Findings: There is mild cardiomegaly. 2-lead pacemaker device is unchanged since 09/13/16. Pulmonary vessels are within normal limits. The lungs are clear and fully expanded. No infiltrate, pleural effusion or pneumothorax. Normal thoracic cage. IMPRESSION: Cardiomegaly. Lungs clear.
--- NOTE | 2017-10-13 16:09 | Emergency Department Report ---
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 - Surgical History Hx Pacemaker: Yes Hx Internal Defibrillator: Yes - Social History Smoking Status: Current Every Day Smoker Substance Use Type: None - Medications Home Medications: Home Medications Medication Instructions Recorded Confirmed Last Taken Type Aspirin [Aspirin BABY CHEW TAB] 81 mg PO QDAY 09/13/16 10/13/17 Unknown History Famotidine [Pepcid] 1 tab PO DAILY #30 tablet 09/17/16 10/13/17 Unknown Rx carBAMazepine [TEGretol] 100 mg PO BID #60 tab.chew 09/17/16 10/13/17 Unknown Rx levETIRAcetam [Keppra TAB] 750 mg PO BID #60 tablet 09/17/16 10/13/17 Unknown Rx Carvedilol [Coreg] 3.125 mg PO BID 10/13/17 10/13/17 Unknown History Lisinopril [Prinivil] 10 mg PO DAILY 10/13/17 10/13/17 Unknown History Sertraline [Zoloft] 25 mg PO QDAY 10/13/17 10/13/17 Unknown History Warfarin [Coumadin] 7.5 mg PO DAILY 10/13/17 10/13/17 Unknown History ED Review of Systems ROS: Stated complaint: DIZZINESS, HEADACHE Other details as noted in HPI Constitutional: denies: chills, fever Eyes: denies: eye pain, eye discharge, vision change ENT: denies: ear pain, throat pain Respiratory: cough Cardiovascular: chest pain Endocrine: no symptoms reported Gastrointestinal: denies: abdominal pain, nausea, diarrhea Genitourinary: denies: urgency, dysuria Musculoskeletal: denies: back pain, joint swelling, arthralgia Skin: denies: rash, lesions Neurological: denies: headache, weakness, paresthesias Psychiatric: denies: anxiety, depression Hematological/Lymphatic: denies: easy bleeding, easy bruising Physical Exam - Physical Exam Vital Signs: Vital Signs 10/13/17 11:32 Temperature 98.4 F Pulse Rate 80 Respiratory 18 Rate Blood Pressure 137/82 O2 Sat by Pulse 98 Oximetry Physical Exam: GENERAL: Alert and oriented x3, no apparent distress, Normal Gait, atraumatic. HEAD: Head is normocephalic and a-traumatic. EYES: Extra ocular muscles are intact. Pupils are equal, round, and reactive to light and accommodation. Bilateral nystagmus EARS: symetrical, atraumatic, non tender, ear canal clear MOUTH:Mouth is well hydrated and without lesions. NECK: Supple. Non edematous, No carotid bruits. No lymphadenopathy or thyromegaly. LUNGS: Symetrical with respiration, No wheezing, no rales or crackles, CTAB. HEART: S1, S2 present, regular rate and rhythm without murmur, no rubs, no gallops. ABDOMEN: No organomegaly was noted,Positive bowel sounds, soft, and non- distended. . Nontender to palpation on all Quadrants, EXTREMITIES/MUSCULOSKELETAL: No cyanosis, clubbing, rash, lesions or edema. Full ROM bilaterally. UE/LE Pulses 2+ bilaterally. LE and UE 5+ strength bilaterally NEUROLOGIC: No focal Deficit, Cranial nerves II through XII are grossly intact. No loss of sensation, PSYCHIATRIC: Mood is congruent with affect, SKIN: Warm and dry, No lesions, No ulceration or induration present ED Course Vital Signs 10/13/17 11:32 Temperature 98.4 F Pulse Rate 80 Respiratory 18 Rate Blood Pressure 137/82 O2 Sat by Pulse 98 Oximetry ED Medical Decision Making - Lab Data Result diagrams: 10/13/17 12:04 10/13/17 12:04 - Radiology Data Radiology results: report reviewed, image reviewed Chest x-ray lungs are clear - Medical Decision Making He since been evaluated by this provider as well as Dr. Forde. I discussed with family when the patient is stable x-ray was negative lab work is all within normal limits, I discussed with mom that he is afebrile vital signs are within normal limits we will try giving him Tylenol to see if we can help with his chest pain which appears to be costochondritis. Discussed mom that she should follow-up with his primary provider as well as his [employer]. Family and patient verbalized understanding. Critical care attestation.: If time is entered above; I have spent that time in minutes in the direct care of this critically ill patient, excluding procedure time. ED Disposition Clinical Impression: Costochondritis Disposition: DC-01 TO HOME OR SELFCARE Is pt being admited?: No Does the pt Need Aspirin: No Condition: Stable Instructions: Costochondritis (ED) Additional Instructions: Please continue all chronic medication as prescribed by his primary care provider and [employer]. Follow up with his primary care provider as well as his [employer] is symptoms persist or gets worse. Referrals: PRIMARY CARE, [Primary Care Provider] - 3-5 Days Forms: Accompanied Note
[2017-10-13] MEDS ORDERED: TYLENOL PO ONE (16:25)
[2017-10-13 16:47] VITALS: BP 108/67
== END 2017-10-13 16:47 | disposition home or self-care (01) ==
LOC: ED 10:48
DX: M94.0 Chondrocostal junction syndrome [Tietze] (principal); I10 Essential (primary) hypertension; F17.200 Nicotine dependence, unspecified, uncomplicated
CPT/HCPCS: 36415; 71046; 80048; 85025; 85610; 85730; 93005; 93010

== ENCOUNTER 2018-01-07 19:35 | Inpatient (IN) | payer MEDICARE ==
[2018-01-07] MEDS ORDERED: KEPPRA 1,000 MG/NS 0.75% 100ML 1,000 MG/100 ML BAG IV ONE (19:43)
[2018-01-07] MEDS ORDERED: S2 RACEPINEPHRINE 2.25% IH ONE ×2 (19:45→19:46)
[2018-01-07] MEDS ORDERED: DIPRIVAN 10 MG/ML 1,000 MG/100 ML BOTTLE IV ONE ×2 (20:03→20:06)
[2018-01-07] MEDS ORDERED: NACL 0.9% 1000 ML 1,000 ML ONE ×2 (20:04)
[2018-01-07] MEDS ORDERED: SODIUM BICARBONATE IV ONE (20:04)
[2018-01-07] MEDS ORDERED: NACL 0.9% 1000 ML 1,000 ML IV ONE ×3 (20:04→20:41)
[2018-01-07] MEDS ORDERED: ADRENALIN ONE ×2 (20:12)
[2018-01-07] MEDS ORDERED: KETAMINE HCL IV ONE (20:12)
[2018-01-07] MEDS ORDERED: SODIUM BICARBONATE 150 MEQ in D5W 1,000 ML IV ONE (20:15)
[2018-01-07 20:16] LABS: Basophils # (Auto) 0.1 K/mm3 (0.0-0.1); Basophils % (Auto) 0.7 % (0.0-1.8); Eosinophils # (Auto) 0.1 K/mm3 (0.0-0.4); Eosinophils % (Auto) 0.5 % (0.0-4.3); Lymphocytes # (Auto) 3.7 K/mm3 (1.2-5.4); Lymphocytes % (Auto) 30.2 % (13.4-35.0); Mean Corpuscular HGB Conc 31 % (32-34); Mean Corpuscular Hemoglobin 29 pg (28-32); Mean Corpuscular Volume 95 fl (84-94); Monocytes # (Auto) 0.8 K/mm3 (0.0-0.8); Monocytes % (Auto) 6.6 % (0.0-7.3); Platelet Count 215 K/mm3 (140-440); Red Blood Count 4.98 M/mm3 (3.65-5.03)
[2018-01-07 20:18] LABS: Hematocrit 47.2 % (35.5-45.6); Hemoglobin 14.4 gm/dl (11.8-15.2)
[2018-01-07] MEDS ORDERED: CEREBYX 1,000 MG.PE in NACL 0.9% 100 ML IV ONE ×2 (20:20→21:00)
[2018-01-07 20:35] LABS: Alanine Aminotransferase 20 units/L (7-56); Albumin 4.9 g/dL (3.9-5); BUN/Creatinine Ratio 9; Blood Urea Nitrogen 11 mg/dL (9-20); Hemolysis Index 19
[2018-01-07] MEDS ORDERED: ARTIFICIAL TEARS OPHTH OINT OU PRN (20:39)
[2018-01-07] MEDS ORDERED: VASELINE LIP THERAPY TP PRN (20:39)
[2018-01-07] MEDS: LEVOPHED DRIP 4 MG/NS 250 ML 4 MG/250 ML BAG IV SCH (20:45)
[2018-01-07] MEDS ORDERED: NACL 0.9% 1000 ML 1,000 ML IV SCH (21:00)
[2018-01-07] MEDS ORDERED: NACL 0.9% 500 ML IV SCH (21:00)
--- NOTE | 2018-01-07 21:07 | XRay Report ---
FINAL REPORT EXAM: XR CHEST 1V AP HISTORY: ETT placement TECHNIQUE: Single, portable chest x-ray. PRIORS: None. FINDINGS: ET tube tip projects approximately 4.5 cm above the aleshia. Left subclavian transvenous cardiac device, postsurgical changes projected over the heart and mild cardiomegaly. Lungs show no focal consolidation or apparent pneumothorax. IMPRESSION: 1. ET tube position as reported. 2. Cardiomegaly. 3. No acute consolidation.
[2018-01-07] MEDS ORDERED: ATIVAN ONE (21:08)
--- NOTE | 2018-01-07 21:19 | Emergency Department Report ---
ED Seizure HPI - General Chief Complaint: Seizure Stated Complaint: CONVULSIONS Time Seen by Provider: 01/07/18 19:40 Source: patient Mode of arrival: Stretcher Limitations: Altered Mental Status, Other - History of Present Illness Initial Comments: History obtained from EMS and family. Pt had 2 generalized tonic/clonic seizures at home without returning to baseline in between. They self terminated. EMS arrived and patient had a GCS of 7. vitals signs were stable and he was protecting his airway. Pt arrived in the ER and had 2 more episodes of seizures. He was given 2 mg IV ativan. Per family, patient has had a seizure in 9 months. Currently on carbamazepine for his sz. Family says that has been compliant. - Related Data Home Medications Medication Instructions Recorded Confirmed Last Taken Aspirin [Aspirin BABY CHEW TAB] 81 mg PO QDAY 09/13/16 10/13/17 Unknown Carvedilol [Coreg] 3.125 mg PO BID 10/13/17 10/13/17 Unknown Lisinopril [Prinivil] 10 mg PO DAILY 10/13/17 10/13/17 Unknown Sertraline [Zoloft] 25 mg PO QDAY 10/13/17 10/13/17 Unknown Warfarin [Coumadin] 7.5 mg PO DAILY 10/13/17 10/13/17 Unknown Previous Rx's Medication Instructions Recorded Last Taken Type Famotidine [Pepcid] 1 tab PO DAILY #30 tablet 09/17/16 Unknown Rx carBAMazepine [TEGretol] 100 mg PO BID #60 tab.chew 09/17/16 Unknown Rx levETIRAcetam [Keppra TAB] 750 mg PO BID #60 tablet 09/17/16 Unknown Rx Allergies Allergy/AdvReac Type Severity Reaction Status Date / Time No Known Allergies Allergy Verified 05/28/16 14:33 ED Review of Systems ROS: Stated complaint: CONVULSIONS Other details as noted in HPI Comment: Unobtainable due to pts medical conditions ED Past Medical Hx - Past Medical History Previous Medical History?: Yes Hx Hypertension: Yes Hx CVA: Yes (Feb 2015) Hx Heart Attack/AMI: No Hx Congestive Heart Failure: Yes Hx Diabetes: No Hx Seizures: Yes Hx Asthma: No Hx COPD: No Hx Dementia: Yes Hx HIV: No 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 - Surgical History Past Surgical History?: Yes Hx Pacemaker: Yes Hx Internal Defibrillator: Yes - Social History Smoking Status: Never Smoker Substance Use Type: None - Medications Home Medications: Home Medications Medication Instructions Recorded Confirmed Last Taken Type Aspirin [Aspirin BABY CHEW TAB] 81 mg PO QDAY 09/13/16 10/13/17 Unknown History Famotidine [Pepcid] 1 tab PO DAILY #30 tablet 09/17/16 10/13/17 Unknown Rx carBAMazepine [TEGretol] 100 mg PO BID #60 tab.chew 09/17/16 10/13/17 Unknown Rx levETIRAcetam [Keppra TAB] 750 mg PO BID #60 tablet 09/17/16 10/13/17 Unknown Rx Carvedilol [Coreg] 3.125 mg PO BID 10/13/17 10/13/17 Unknown History Lisinopril [Prinivil] 10 mg PO DAILY 10/13/17 10/13/17 Unknown History Sertraline [Zoloft] 25 mg PO QDAY 10/13/17 10/13/17 Unknown History Warfarin [Coumadin] 7.5 mg PO DAILY 10/13/17 10/13/17 Unknown History ED Physical Exam - General Limitations: Altered Mental Status, Other General appearance: obtunded, postictal - Head Head exam: Present: atraumatic, normocephalic - Eye Eye exam: Present: normal appearance, PERRL, EOMI - ENT ENT exam: Present: mucous membranes moist - Respiratory Respiratory exam: Present: normal lung sounds bilaterally. Absent: respiratory distress - Cardiovascular Cardiovascular Exam: Present: regular rate, normal rhythm, tachycardia. Absent : systolic murmur, diastolic murmur, rubs, gallop - GI/Abdominal GI/Abdominal exam: Present: soft, normal bowel sounds - Neurological Exam Neurological exam: Present: other (doesn't respond to pain in extremities. GCS 7 ) ED Course Vital Signs 01/07/18 01/07/18 01/07/18 19:46 19:55 20:00 Temperature 98.8 F Pulse Rate 77 Respiratory 28 H Rate Blood Pressure 114/55 Blood Pressure 123/47 [Left] O2 Sat by Pulse 89 Oximetry 01/07/18 01/07/18 01/07/18 20:01 20:15 20:30 Temperature Pulse Rate 76 92 H 72 Respiratory 28 H 22 11 L Rate Blood Pressure 90/34 114/55 120/49 Blood Pressure 136/48 [Left] O2 Sat by Pulse 66 L 89 100 Oximetry 01/07/18 01/07/18 01/07/18 20:40 20:43 20:45 Temperature Pulse Rate 78 75 78 Respiratory 16 16 Rate Blood Pressure 92/40 92/40 Blood Pressure 92/40 83/39 [Left] O2 Sat by Pulse 100 100 100 Oximetry 01/07/18 01/07/18 01/07/18 21:00 21:10 21:15 Temperature Pulse Rate 74 68 Respiratory 16 16 16 Rate Blood Pressure 77/29 87/42 Blood Pressure 77/29 80/34 [Left] O2 Sat by Pulse 100 100 100 Oximetry 01/07/18 01/07/18 01/07/18 21:30 21:45 22:14 Temperature Pulse Rate 75 73 Respiratory 16 16 18 Rate Blood Pressure 87/57 128/64 114/70 Blood Pressure [Left] O2 Sat by Pulse 100 100 100 Oximetry 01/07/18 01/07/18 01/07/18 22:15 22:30 22:45 Temperature Pulse Rate 72 73 70 Respiratory 17 17 16 Rate Blood Pressure 115/61 110/57 96/42 Blood Pressure [Left] O2 Sat by Pulse 100 100 100 Oximetry 01/07/18 01/07/18 01/07/18 23:00 23:15 23:30 Temperature Pulse Rate 70 70 70 Respiratory 16 16 16 Rate Blood Pressure 94/44 96/45 92/53 Blood Pressure [Left] O2 Sat by Pulse 100 100 92 Oximetry 01/07/18 01/08/18 01/08/18 23:45 00:00 00:15 Temperature Pulse Rate 70 70 70 Respiratory 12 16 14 Rate Blood Pressure 115/60 93/45 92/48 Blood Pressure [Left] O2 Sat by Pulse 99 95 96 Oximetry 01/08/18 00:29 Temperature Pulse Rate 70 Respiratory Rate Blood Pressure 92/48 Blood Pressure [Left] O2 Sat by Pulse 99 Oximetry ED Medical Decision Making - Lab Data Result diagrams: 01/07/18 20:04 01/07/18 20:04 - EKG Data -: EKG Interpreted by Me - EKG Data Interpretation: other (ventricular paced rhythm) - Medical Decision Making 37 yo male with multiple comorbidities including sz on carbamazepine/keppra that presents post-ictal. GCS 7 on presentation. He was given 1g keppra. Placed on a non-rebreather. Pt had 2 more GTC sz in the ER, witnessed by nursing. He was given 2 mg IV ativan. Pt stopped seizing, but was still post ictal. He wasn' t responding to pain in any extremities. Pupils were symmetric. Family said that he had been complaining about a headache the past couple of days, but other than that had been fine. Pt had another sz witnessed by nursing and was given ativan. At this time, I gave him fosphenytoin. ABG showed that he had a profound metabolic acidosis with a pH of 6.7 Pt was given 1 amp of NaHCO3, 3L IV NS boluses, and placed on a rate of 200 cc/hr of IVNS. He was intubated. A bicarb drip was started. See procedure note for details. He was sedated with propofol infusion. Pt became hypotensive, likely from the AED meds and propofol infusion. So, he was started on levophed gtt. A rt IJ was placed after a failed US guided rt subclavian. Low concern for sepsis. CT head showed no acute process. Repeat ABG showed improving pH. EKG showed v-paced rhythm. He was admitted to the ICU for further management. - Differential Diagnosis epilepsy, status epilepticus, ich, drug intoxication, sepsis Critical Care Time: Yes Critical care time in (mins) excluding proc time.: 70 Critical care attestation.: If time is entered above; I have spent that time in minutes in the direct care of this critically ill patient, excluding procedure time. ED Disposition Clinical Impression: Status epilepticus, Metabolic encephalopathy, Respiratory failure Disposition: 09 OP ADMIT IP TO THIS HOSP Is pt being admited?: Yes Does the pt Need Aspirin: No Condition: Stable
--- NOTE | 2018-01-07 22:34 | Cat Scan Report ---
FINAL REPORT EXAM: CT HEAD/BRAIN WO CON HISTORY: Seizure TECHNIQUE: Noncontrast CT axial images of the brain. PRIORS: 03 August 2016. FINDINGS: No parenchymal mass, mass effect, hemorrhage, midline shift or hydrocephalus. No evidence of acute cortical infarct. No abnormal, extra-axial fluid or air collection. Focal encephalomalacia suggesting remote posttraumatic versus chronic ischemic change and infarct in the right frontoparietal region again noted. Osseous calvarium grossly intact. Probable small, mucous retention cyst versus polyp in the left maxillary sinus. IMPRESSION: 1. No acute intracranial findings or significant interval change.
[2018-01-07] MEDS ORDERED: SODIUM CHLORIDE FLUSH SYRINGE 10 ML IV PRN (23:50)
--- NOTE | 2018-01-07 23:50 | History and Physical Report ---
History of Present Illness Date of examination: 01/07/18 Date of admission: 01/07/18 Chief complaint: CC Seizures x 4 AMS few hours History of present illness: History of Present Illness History obtained from EMS and family. Pt had 2 generalized tonic/clonic seizures at home without returning to baseline in between. They self terminated. EMS arrived and patient had a GCS of 7. vitals signs were stable and he was protecting his airway. Pt arrived in the ER and had 2 more episodes of seizures. He was given 2 mg IV ativan. Per family, patient has not had a seizure in 9 months. Currently on carbamazepine for his seizure. Family says that has been compliant. Because of decreased responsiveness and unable to protect his airway patient was intubated by ED Physician. 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 Surgical History Past Surgical History?: Yes Hx Pacemaker: Yes Hx Internal Defibrillator: Yes Social History Smoking Status: Never Smoker Substance Use Type: None Family history Unavailable - Medications Home Medications: Home Medications Medication Instructions Recorded Confirmed Last Taken Type Aspirin [Aspirin BABY CHEW TAB] 81 mg PO QDAY 09/13/16 10/13/17 Unknown History Famotidine [Pepcid] 1 tab PO DAILY #30 tablet 09/17/16 10/13/17 Unknown Rx carBAMazepine [TEGretol] 100 mg PO BID #60 tab.chew 09/17/16 10/13/17 Unknown Rx levETIRAcetam [Keppra TAB] 750 mg PO BID #60 tablet 09/17/16 10/13/17 Unknown Rx Carvedilol [Coreg] 3.125 mg PO BID 10/13/17 10/13/17 Unknown History Lisinopril [Prinivil] 10 mg PO DAILY 10/13/17 10/13/17 Unknown History Sertraline [Zoloft] 25 mg PO QDAY 10/13/17 10/13/17 Unknown History Warfarin [Coumadin] 7.5 mg PO DAILY 10/13/17 10/13/17 Unknown History Review of Systems ROS: Stated complaint: CONVULSIONS Other details as noted in HPI Comment: Unobtainable due to pts medical conditions Medications and Allergies Allergies Allergy/AdvReac Type Severity Reaction Status Date / Time No Known Allergies Allergy Verified 05/28/16 14:33 Home Medications Medication Instructions Recorded Confirmed Last Taken Type Aspirin [Aspirin BABY CHEW TAB] 81 mg PO QDAY 09/13/16 10/13/17 Unknown History Famotidine [Pepcid] 1 tab PO DAILY #30 tablet 09/17/16 10/13/17 Unknown Rx carBAMazepine [TEGretol] 100 mg PO BID #60 tab.chew 09/17/16 10/13/17 Unknown Rx levETIRAcetam [Keppra TAB] 750 mg PO BID #60 tablet 09/17/16 10/13/17 Unknown Rx Carvedilol [Coreg] 3.125 mg PO BID 10/13/17 10/13/17 Unknown History Lisinopril [Prinivil] 10 mg PO DAILY 10/13/17 10/13/17 Unknown History Sertraline [Zoloft] 25 mg PO QDAY 10/13/17 10/13/17 Unknown History Warfarin [Coumadin] 7.5 mg PO DAILY 10/13/17 10/13/17 Unknown History Active Meds: Active Medications Hydrophilic Ointment (Vaseline Lip Therapy) 1 applic TP Q2HR PRN PRN Reason: Dry Lips Propofol (Diprivan 10 Mg/Ml) 1,000 mg in 100 mls @ 1.769 mls/hr IV TITR ONE; Protocol Stop: 01/10/18 04:37 Norepinephrine (Levophed Drip 4 Mg/Ns 250 Ml) 4 mg in 250 mls @ 7.5 mls/hr IV TITR MANDY; Protocol Sodium Bicarbonate 150 meq/ (Dextrose) 1,150 mls @ 42 mls/hr IV DIRECT ONE Stop: 01/08/18 23:37 Last Admin: 01/07/18 21:00 Dose: 42 mls/hr Sodium Chloride (Nacl 0.9% 1000 Ml) 1,000 mls @ 200 mls/hr IV DIRECT MANDY Stop: 01/08/18 06:59 Multi-Ingred Cream/Lotion/Oil/Oint (Artificial Tears Ophth Oint) 1 applic OU Q4HR PRN PRN Reason: Dry Eye(s) Sodium Chloride (Nacl 0.9% 500 Ml) 1 ml IV DIRECT MANDY Exam - Constitutional Vitals: Temp Pulse Resp BP Pulse Ox 98.8 F 70 16 96/42 100 01/07/18 20:00 01/07/18 22:45 01/07/18 22:45 01/07/18 22:45 01/07/18 22:45 General appearance: Present: severe distress, disheveled - Neck Neck: Present: supple, normal ROM - Respiratory Respiratory effort: normal Respiratory: bilateral: CTA - Cardiovascular Heart rate: 70 Rhythm: regular Heart Sounds: Present: S1 & S2. Absent: rub, click - Extremities Extremities: no ischemia, pulses intact, pulses symmetrical, No edema Peripheral Pulses: within normal limits - Abdominal General gastrointestinal: Present: soft, non-tender, non-distended, normal bowel sounds Male genitourinary: Present: normal - Rectal Rectal Exam: deferred - Integumentary Integumentary: Present: clear, warm, dry - Musculoskeletal Musculoskeletal: gait normal, strength equal bilaterally - Psychiatric Psychiatric: appropriate mood/affect, intact judgment & insight - Neurologic Neurologic: CNII-XII intact, moves all extremities - Allied Health Allied health notes reviewed: nursing, case management Results - Labs CBC & Chem 7: 01/07/18 20:04 01/07/18 20:04 Labs: Laboratory Last Values WBC 12.2 K/mm3 (4.5-11.0) H 01/07/18 20:04 RBC 4.98 M/mm3 (3.65-5.03) 01/07/18 20:04 Hgb 14.4 gm/dl (11.8-15.2) 01/07/18 20:04 Hct 47.2 % (35.5-45.6) H 01/07/18 20:04 MCV 95 fl (84-94) H 01/07/18 20:04 MCH 29 pg (28-32) 01/07/18 20:04 MCHC 31 % (32-34) L 01/07/18 20:04 RDW 15.0 % (13.2-15.2) 01/07/18 20:04 Plt Count 215 K/mm3 (140-440) 01/07/18 20:04 Lymph % (Auto) 30.2 % (13.4-35.0) 01/07/18 20:04 [place] % (Auto) 6.6 % (0.0-7.3) 01/07/18 20:04 Eos % (Auto) 0.5 % (0.0-4.3) 01/07/18 20:04 Baso % (Auto) 0.7 % (0.0-1.8) 01/07/18 20:04 Lymph # 3.7 K/mm3 (1.2-5.4) 01/07/18 20:04 [place] # 0.8 K/mm3 (0.0-0.8) 01/07/18 20:04 Eos # 0.1 K/mm3 (0.0-0.4) 01/07/18 20:04 Baso # 0.1 K/mm3 (0.0-0.1) 01/07/18 20:04 Seg Neutrophils % 62.0 % (40.0-70.0) 01/07/18 20:04 Seg Neutrophils # 7.6 K/mm3 (1.8-7.7) 01/07/18 20:04 POC ABG pH 7.067 (7.35-7.45) L 01/07/18 21:46 POC ABG pCO2 37.1 (35-45) 01/07/18 21:46 POC ABG pO2 196 (80-105) H 01/07/18 21:46 POC ABG HCO3 10.7 01/07/18 21:46 POC ABG Total CO2 12 01/07/18 21:46 POC ABG O2 Sat 99 01/07/18 21:46 POC ABG Base Excess -19 01/07/18 21:46 FiO2 60 % 01/07/18 21:46 Sodium 138 mmol/L (137-145) 01/07/18 20:04 Potassium 3.7 mmol/L (3.6-5.0) 01/07/18 20:04 Chloride 92.3 mmol/L (98-107) L 01/07/18 20:04 Carbon Dioxide 10 mmol/L (22-30) L 01/07/18 20:04 Anion Gap 39 mmol/L 01/07/18 20:04 BUN 11 mg/dL (9-20) 01/07/18 20:04 Creatinine 1.2 mg/dL (0.8-1.5) 01/07/18 20:04 Estimated GFR > 60 ml/min 01/07/18 20:04 BUN/Creatinine Ratio 9 % 01/07/18 20:04 Glucose 189 mg/dL (75-100) H 01/07/18 20:04 Lactic Acid < 0.20 mmol/L (0.7-2.0) L 01/07/18 21:11 Calcium 10.0 mg/dL (8.4-10.2) 01/07/18 20:04 Total Bilirubin < 0.20 mg/dL (0.1-1.2) 01/07/18 20:04 AST 23 units/L (5-40) 01/07/18 20:04 ALT 20 units/L (7-56) 01/07/18 20:04 Alkaline Phosphatase 112 units/L (35-129) 01/07/18 20:04 Troponin T < 0.010 ng/mL (0.00-0.029) 01/07/18 21:11 Total Protein 8.3 g/dL (6.3-8.2) H 01/07/18 20:04 Albumin 4.9 g/dL (3.9-5) 01/07/18 20:04 Albumin/Globulin Ratio 1.4 % 01/07/18 20:04 Carbamazepine 4.8 ug/mL (4-12) 01/07/18 20:04 Plasma/Serum Alcohol < 0.01 % (0-0.07) 01/07/18 20:04 Short CBC 01/07/18 Range/Units 20:04 WBC 12.2 H (4.5-11.0) K/mm3 Hgb 14.4 (11.8-15.2) gm/dl Hct 47.2 H (35.5-45.6) % Plt Count 215 (140-440) K/mm3 BMP 01/07/18 20:04 Sodium 138 Potassium 3.7 Chloride 92.3 L Carbon Dioxide 10 L BUN 11 Creatinine 1.2 Glucose 189 H Calcium 10.0 Cardiac Enzymes 01/07/18 Range/Units 21:11 Troponin T < 0.010 (0.00-0.029) ng/mL Liver Function 01/07/18 Range/Units 20:04 Total Bilirubin < 0.20 (0.1-1.2) mg/dL AST 23 (5-40) units/L ALT 20 (7-56) units/L Alkaline Phosphatase 112 (35-129) units/L Albumin 4.9 (3.9-5) g/dL - Imaging and Cardiology EKG: report reviewed (Ventricular paced rhythm 70/min) Imaging and Cardiology: Head CT IMPRESSION: 1. No acute intracranial findings or significant interval change. CXR IMPRESSION: 1. ET tube position as reported. 2. Cardiomegaly. 3. No acute consolidation. Assessment and Plan Assessment and plan: 1.Acute Encephalopathy Sec to Seizures IV Keppra and IV fluids Vent support CC consult-Dr Mitchell /Verito 2.Status Epilepticus IV Keppra IV Ativan 3.Hyperglycemia: Check A1c Coverage for now 4. HTn Cont Carvedilol and Lisinopril 5.Depression Sertraline 6.Afib cont Warfarin 7.Leukocytosis Empiric Abx coverage 8.DVT prophylaxis Lovenox 40mg sq qd Critical care statement: The high probability of a clinically significant, sudden or life threatening deterioration of the [Pulmonary, cadiac, renal] system(s) required my full and direct attention, intervention and personal management. The aggregate critical care time was [45] minutes. This time is in addition to time spent performing reported procedures but includes the following: [x] Data Review and interpretation [x] Patient assessment and monitoring of vital signs [x] Documentation [x] Medication orders and management Advance Directives: Yes (Full code) VTE prophylaxis?: Chemical Plan of care discussed with patient/family: Yes
[2018-01-08] MEDS ORDERED: HEPARIN SUB-Q SCH
[2018-01-08] MEDS ORDERED: NACL 0.9% 1000 ML 1,000 ML ONE (01:20)
[2018-01-08] MEDS ORDERED: HEPARIN ONE (01:21)
[2018-01-08] MEDS ORDERED: D5W 1,000 ML IV ONE (01:21)
[2018-01-08] MEDS: KEPPRA 750 MG in NACL 0.9% 100 ML IV SCH ×2 (01:30→09:51)
[2018-01-08] MEDS: D5NS 1,000 ML IV SCH ×2 (01:30→15:43)
[2018-01-08] MEDS ORDERED: ATIVAN IV ONE (01:55)
[2018-01-08] MEDS ORDERED: LEVOPHED DRIP 4 MG/NS 250 ML 4 MG/250 ML BAG IV ONE (02:11)
--- NOTE | 2018-01-08 02:31 | Emergency Department Report ---
ED Seizure HPI - General Chief Complaint: Seizure Stated Complaint: CONVULSIONS Time Seen by Provider: 01/07/18 19:40 Source: patient Mode of arrival: Stretcher Limitations: Altered Mental Status, Other - History of Present Illness Initial Comments: See previous Note for H&P details. Purpose of this note is to document the procedures. - Related Data Home Medications Medication Instructions Recorded Confirmed Last Taken Aspirin [Aspirin BABY CHEW TAB] 81 mg PO QDAY 09/13/16 10/13/17 Unknown Carvedilol [Coreg] 3.125 mg PO BID 10/13/17 10/13/17 Unknown Lisinopril [Prinivil] 10 mg PO DAILY 10/13/17 10/13/17 Unknown Sertraline [Zoloft] 25 mg PO QDAY 10/13/17 10/13/17 Unknown Warfarin [Coumadin] 7.5 mg PO DAILY 10/13/17 10/13/17 Unknown Previous Rx's Medication Instructions Recorded Last Taken Type Famotidine [Pepcid] 1 tab PO DAILY #30 tablet 09/17/16 Unknown Rx carBAMazepine [TEGretol] 100 mg PO BID #60 tab.chew 09/17/16 Unknown Rx levETIRAcetam [Keppra TAB] 750 mg PO BID #60 tablet 09/17/16 Unknown Rx Allergies Allergy/AdvReac Type Severity Reaction Status Date / Time No Known Allergies Allergy Verified 05/28/16 14:33 ED Review of Systems ROS: Stated complaint: CONVULSIONS Other details as noted in HPI ED Past Medical Hx - Past Medical History Previous Medical History?: Yes Hx Hypertension: Yes Hx CVA: Yes (Feb 2015) Hx Heart Attack/AMI: No Hx Congestive Heart Failure: Yes Hx Diabetes: No Hx Seizures: Yes Hx Asthma: No Hx COPD: No Hx Dementia: Yes Hx HIV: No 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 - Surgical History Past Surgical History?: Yes Hx Pacemaker: Yes Hx Internal Defibrillator: Yes - Social History Smoking Status: Never Smoker Substance Use Type: None - Medications Home Medications: Home Medications Medication Instructions Recorded Confirmed Last Taken Type Aspirin [Aspirin BABY CHEW TAB] 81 mg PO QDAY 09/13/16 10/13/17 Unknown History Famotidine [Pepcid] 1 tab PO DAILY #30 tablet 09/17/16 10/13/17 Unknown Rx carBAMazepine [TEGretol] 100 mg PO BID #60 tab.chew 09/17/16 10/13/17 Unknown Rx levETIRAcetam [Keppra TAB] 750 mg PO BID #60 tablet 09/17/16 10/13/17 Unknown Rx Carvedilol [Coreg] 3.125 mg PO BID 10/13/17 10/13/17 Unknown History Lisinopril [Prinivil] 10 mg PO DAILY 10/13/17 10/13/17 Unknown History Sertraline [Zoloft] 25 mg PO QDAY 10/13/17 10/13/17 Unknown History Warfarin [Coumadin] 7.5 mg PO DAILY 10/13/17 10/13/17 Unknown History ED Physical Exam - General Limitations: Altered Mental Status, Other General appearance: obtunded, postictal ED Course Vital Signs 01/07/18 01/07/18 01/07/18 19:46 19:55 20:00 Temperature 98.8 F Pulse Rate 77 Respiratory 28 H Rate Blood Pressure 114/55 Blood Pressure 123/47 [Left] O2 Sat by Pulse 89 Oximetry 01/07/18 01/07/18 01/07/18 20:01 20:15 20:30 Temperature Pulse Rate 76 92 H 72 Respiratory 28 H 22 11 L Rate Blood Pressure 90/34 114/55 120/49 Blood Pressure 136/48 [Left] O2 Sat by Pulse 66 L 89 100 Oximetry 01/07/18 01/07/18 01/07/18 20:40 20:43 20:45 Temperature Pulse Rate 78 75 78 Respiratory 16 16 Rate Blood Pressure 92/40 92/40 Blood Pressure 92/40 83/39 [Left] O2 Sat by Pulse 100 100 100 Oximetry 01/07/18 01/07/18 01/07/18 21:00 21:10 21:15 Temperature Pulse Rate 74 68 Respiratory 16 16 16 Rate Blood Pressure 77/29 87/42 Blood Pressure 77/29 80/34 [Left] O2 Sat by Pulse 100 100 100 Oximetry 01/07/18 01/07/18 01/07/18 21:30 21:45 22:14 Temperature Pulse Rate 75 73 Respiratory 16 16 18 Rate Blood Pressure 87/57 128/64 114/70 Blood Pressure [Left] O2 Sat by Pulse 100 100 100 Oximetry 01/07/18 01/07/18 01/07/18 22:15 22:30 22:45 Temperature Pulse Rate 72 73 70 Respiratory 17 17 16 Rate Blood Pressure 115/61 110/57 96/42 Blood Pressure [Left] O2 Sat by Pulse 100 100 100 Oximetry 01/07/18 01/07/18 01/07/18 23:00 23:15 23:30 Temperature Pulse Rate 70 70 70 Respiratory 16 16 16 Rate Blood Pressure 94/44 96/45 92/53 Blood Pressure [Left] O2 Sat by Pulse 100 100 92 Oximetry 01/07/18 01/08/18 01/08/18 23:45 00:00 00:15 Temperature Pulse Rate 70 70 70 Respiratory 12 16 14 Rate Blood Pressure 115/60 93/45 92/48 Blood Pressure [Left] O2 Sat by Pulse 99 95 96 Oximetry 01/08/18 00:29 Temperature Pulse Rate 70 Respiratory Rate Blood Pressure 92/48 Blood Pressure [Left] O2 Sat by Pulse 99 Oximetry - Central Line Placement Right SC Consent Obtained: emergent situation Patient Placed on Monitor/Pulse Ox: Yes Prep: mask, gown, gloves Central Line Prep: Chlorhexidine scrub Local Anesthesia Used: Lidocaine 1% Ultrasound Used for Placement: Yes Central Line Lumen Inserted: triple Bloods Obtained for Lab: No Patient Tolerated Procedure: well Complications: other (unable to place rt SC despite U/s guidance. ) Right IJ Consent Obtained: emergent situation Patient Placed on Monitor/Pulse Ox: Yes Prep: mask, gown, gloves Central Line Prep: Chlorhexidine scrub Local Anesthesia Used: Lidocaine 1% Ultrasound Used for Placement: Yes Central Line Lumen Inserted: triple Bloods Obtained for Lab: No Central Line Position: good blood return, all ports aspirated, flus, sutured in place with nyl Dressing Applied: Tegaderm Post Procedure X-Ray: tip of catheter in good p Patient Tolerated Procedure: well, no complications Complications: none - Intubation Time Out Performed: Yes Sedative: Ketamine Paralytic: Rocuronium Laryngoscope: Hazel Size: 3 Assist Device Used: Bougie ET Tube Size: 7 Tube Secured Depth (cm): 22 Tube Secured Location: teeth Tube Placement Confirmation: visualized tube passing t, equal breath sounds bilat, no breath sounds over epi, confirmation by capnometr Patient Tolerated Procedure: well, no complications Intubation Complications: none ED Medical Decision Making - Lab Data Result diagrams: 01/07/18 20:04 01/07/18 20:04 Critical care attestation.: If time is entered above; I have spent that time in minutes in the direct care of this critically ill patient, excluding procedure time. ED Disposition Clinical Impression: Metabolic encephalopathy, Status epilepticus, Respiratory failure Disposition: OP ADMIT IP TO THIS HOSP Is pt being admited?: Yes Condition: Stable
[2018-01-08] MEDS ORDERED: ATIVAN ONE (03:15)
[2018-01-08] MEDS: DUONEB *Not for PRN Use IH SCH ×4 (03:34→19:48)
[2018-01-08] MEDS: LEVOPHED DRIP 4 MG/NS 250 ML 4 MG/250 ML BAG IV SCH ×3 (05:00→20:30)
[2018-01-08 05:55] LABS: Amphetamine Screen,Urine TNR
[2018-01-08 05:56] LABS: Benzodiazepines Screen,Urine TNR; Cannabinoid Screen,Urine TNR; Cocaine Screen,Urine TNR; Methadone Screen,Urine TNR; Opiate Screen,Urine TNR
[2018-01-08 05:57] LABS: Amphetamine Screen,Urine PRESUMPTIVE NEGATIVE; Benzodiazepines Screen,Urine PRESUMPTIVE NEGATIVE; Cannabinoid Screen,Urine PRESUMPTIVE NEGATIVE; Cocaine Screen,Urine PRESUMPTIVE NEGATIVE; Methadone Screen,Urine PRESUMPTIVE NEGATIVE; Opiate Screen,Urine PRESUMPTIVE NEGATIVE
[2018-01-08] MEDS ORDERED: ZOSYN/NS 4.5GM/100ML 4.5 GM/100 ML VIAL IV SCH (06:00)
[2018-01-08] MEDS ORDERED: SIMPLE SYRUP FEEDTUBE PRN ×4 (06:06→09:09)
[2018-01-08] MEDS ORDERED: PANCREAZE DR 10,500 UNIT FEEDTUBE PRN ×2 (06:06→09:09)
[2018-01-08] MEDS ORDERED: SODIUM BICARBONATE FEEDTUBE PRN ×2 (06:06→09:09)
[2018-01-08] MEDS ORDERED: ATIVAN IV PRN (06:09)
[2018-01-08] MEDS ORDERED: ADRENALIN ONE (06:45)
[2018-01-08] MEDS ORDERED: NACL 0.9% 1000 ML 1,000 ML IV SCH (07:00)
[2018-01-08 07:34] LABS: Hematocrit 36.4 % (35.5-45.6); Hemoglobin 12.3 gm/dl (11.8-15.2); Mean Corpuscular HGB Conc 34 % (32-34); Mean Corpuscular Hemoglobin 30 pg (28-32); Mean Corpuscular Volume 89 fl (84-94); Platelet Count 139 K/mm3 (140-440); Red Blood Count 4.11 M/mm3 (3.65-5.03); Red Cell Distribution Width 14.5 % (13.2-15.2)
[2018-01-08 07:36] LABS: Alanine Aminotransferase 19 units/L (7-56); BUN/Creatinine Ratio 10; Blood Urea Nitrogen 8 mg/dL (9-20); Calcium 7.8 mg/dL (8.4-10.2); Hemolysis Index 22
[2018-01-08 07:51] LABS: Basophils % (Auto) 0.2 % (0.0-1.8); Eosinophils % (Auto) 0.1 % (0.0-4.3); Lymphocytes # (Auto) 0.7 K/mm3 (1.2-5.4); Monocytes # (Auto) 0.5 K/mm3 (0.0-0.8)
--- NOTE | 2018-01-08 08:15 | XRay Report ---
FINAL REPORT EXAM: XR CHEST 1V AP HISTORY: Post ETT placement COMPARISON: January 07, 2018. FINDINGS: Frontal view(s) of the chest obtained. Stable mild cardiac enlargement. Right IJ line is been placed. Distal tip projects over the mid to distal SVC. ET tube remains in satisfactory position. Distal tip approximately 3.6 centimeters from the aleshia. NG tube is in place. Distal tip not visualized but extends at least to the mid stomach. There is a new patchy airspace opacity medial right lung base concerning for pneumonia. No gross pneumothorax. IMPRESSION: Interval placement of right IJ line and NG tube in satisfactory position. Stable positioning of ET tube. Airspace consolidation medial right lung base new from prior study concerning for pneumonia.
[2018-01-08 08:19] LABS: INR 4.87 (0.87-1.13)
[2018-01-08] MEDS ORDERED: ZEMURON IV ONE (08:51)
[2018-01-08] MEDS: ZOLOFT PO SCH (09:51)
[2018-01-08] MEDS: BABY ASPIRIN PO SCH (09:52)
[2018-01-08] MEDS: PEPCID PO SCH (09:52)
[2018-01-08] MEDS: COREG PO SCH ×2 (10:10→22:13)
--- NOTE | 2018-01-08 10:10 | Progress Note ---
Assessment and Plan Assessment and plan: Acute Encephalopathy. Etiology is secondary to seizures. CT scan of the head is negative Continue IV Keppra and IV fluids Acute hypoxemic respiratory failure. Patient currently require mechanical ventilatory support. Continue vent weaning per pulmonary. Status Epilepticus Continue IV Keppra. Neurology consultation pending. Check EEG. SIRS. Patient with leukocytosis on admission. Empiric antibiotics started with Zosyn. However, we will change antibiotic given that penicillins lower seizure threshold. I discussed with neurology. Diabetes mellitus type 2. Patient has had previous episodes of hyperglycemia on past hospitalizations. Follow-up hemoglobin A1c. Continue sliding scale insulin for now. Diastolic heart failure, compensated. Patient with echocardiogram in October 2015 with EF 50-55%. Continue current medications. Hypertension. Cont Carvedilol and Lisinopril Depression Sertraline Afib Hold Warfarin Coagulopathy. Hold warfarin and maintain INR 2-3 Leukocytosis Empiric Abx coverage DVT prophylaxis Lovenox 40mg sq qd History Interval history: No new seizure activity this a.m. Hospitalist Physical - Constitutional Vitals: Temp Pulse Resp BP Pulse Ox 98.5 F 70 16 95/48 100 01/08/18 03:19 01/08/18 08:40 01/08/18 08:40 01/08/18 08:40 01/08/18 08:40 General appearance: Present: mild distress, disheveled - EENT Eyes: Present: PERRL, EOM intact ENT: hearing intact, clear oral mucosa, dentition normal - Neck Neck: Present: supple, normal ROM - Respiratory Respiratory effort: normal Respiratory: bilateral: CTA - Cardiovascular Rhythm: regular Heart Sounds: Present: S1 & S2. Absent: gallop, rub - Extremities Extremities: no ischemia, No edema, Full ROM - Abdominal General gastrointestinal: soft, non-tender, non-distended, normal bowel sounds - Integumentary Integumentary: Present: clear, warm, dry - Neurologic Neurologic: CNII-XII intact, moves all extremities Results - Labs CBC & Chem 7: 01/08/18 04:59 01/08/18 04:59 Labs: Laboratory Last Values WBC 9.6 K/mm3 (4.5-11.0) 01/08/18 04:59 RBC 4.11 M/mm3 (3.65-5.03) 01/08/18 04:59 Hgb 12.3 gm/dl (11.8-15.2) 01/08/18 04:59 Hct 36.4 % (35.5-45.6) D 01/08/18 04:59 MCV 89 fl (84-94) 01/08/18 04:59 MCH 30 pg (28-32) 01/08/18 04:59 MCHC 34 % (32-34) 01/08/18 04:59 RDW 14.5 % (13.2-15.2) 01/08/18 04:59 Plt Count 139 K/mm3 (140-440) L 01/08/18 04:59 Lymph % (Auto) 7.0 % (13.4-35.0) L 01/08/18 04:59 [place] % (Auto) 5.0 % (0.0-7.3) 01/08/18 04:59 Eos % (Auto) 0.1 % (0.0-4.3) 01/08/18 04:59 Baso % (Auto) 0.2 % (0.0-1.8) 01/08/18 04:59 Lymph # 0.7 K/mm3 (1.2-5.4) L 01/08/18 04:59 [place] # 0.5 K/mm3 (0.0-0.8) 01/08/18 04:59 Eos # 0.0 K/mm3 (0.0-0.4) 01/08/18 04:59 Baso # 0.0 K/mm3 (0.0-0.1) 01/08/18 04:59 Add Manual Diff Complete 01/08/18 04:59 Seg Neutrophils % 87.7 % (40.0-70.0) H 01/08/18 04:59 Seg Neutrophils # 8.4 K/mm3 (1.8-7.7) H 01/08/18 04:59 PT 49.1 Sec. (12.2-14.9) H 01/08/18 07:41 INR 4.87 (0.87-1.13) H 01/08/18 07:41 POC ABG pH 7.479 (7.35-7.45) H 01/08/18 04:21 POC ABG pCO2 28.3 (35-45) L 01/08/18 04:21 POC ABG pO2 160 (80-105) H 01/08/18 04:21 POC ABG HCO3 21.0 01/08/18 04:21 POC ABG Total CO2 22 01/08/18 04:21 POC ABG O2 Sat 100 01/08/18 04:21 POC ABG Base Excess -3 01/08/18 04:21 FiO2 40 % 01/08/18 04:21 Sodium 135 mmol/L (137-145) L 01/08/18 04:59 Potassium 4.0 mmol/L (3.6-5.0) 01/08/18 04:59 Chloride 103.1 mmol/L (98-107) 01/08/18 04:59 Carbon Dioxide 14 mmol/L (22-30) L 01/08/18 04:59 Anion Gap 22 mmol/L 01/08/18 04:59 BUN 8 mg/dL (9-20) L 01/08/18 04:59 Creatinine 0.8 mg/dL (0.8-1.5) 01/08/18 04:59 Estimated GFR > 60 ml/min 01/08/18 04:59 BUN/Creatinine Ratio 10 % 01/08/18 04:59 Glucose 186 mg/dL (75-100) H 01/08/18 04:59 Hemoglobin A1c 5.9 % (4-6) 01/08/18 00:09 Lactic Acid < 0.20 mmol/L (0.7-2.0) L 01/07/18 21:11 Calcium 7.8 mg/dL (8.4-10.2) L D 01/08/18 04:59 Total Bilirubin 0.30 mg/dL (0.1-1.2) 01/08/18 04:59 AST 31 units/L (5-40) 01/08/18 04:59 ALT 19 units/L (7-56) 01/08/18 04:59 Alkaline Phosphatase 77 units/L (35-129) 01/08/18 04:59 Troponin T < 0.010 ng/mL (0.00-0.029) 01/07/18 21:11 Total Protein 5.8 g/dL (6.3-8.2) L D 01/08/18 04:59 Albumin 3.0 g/dL (3.9-5) L 01/08/18 04:59 Albumin/Globulin Ratio 1.1 % 01/08/18 04:59 Urine Opiates Screen Presumptive negative 01/08/18 04:56 Urine Methadone Screen Presumptive negative 01/08/18 04:56 Ur Barbiturates Screen Presumptive negative 01/08/18 04:56 Carbamazepine 4.8 ug/mL (4-12) 01/07/18 20:04 Ur Phencyclidine Scrn Presumptive negative 01/08/18 04:56 Ur Amphetamines Screen Presumptive negative 01/08/18 04:56 U Benzodiazepines Scrn Presumptive negative 01/08/18 04:56 Urine Cocaine Screen Presumptive negative 01/08/18 04:56 U Marijuana (THC) Screen Presumptive negative 01/08/18 04:56 Drugs of Abuse Note Disclamer 01/08/18 04:56 Plasma/Serum Alcohol < 0.01 % (0-0.07) 01/07/18 20:04
[2018-01-08] MEDS: SODIUM CHLORIDE FLUSH SYRINGE 10 ML IV SCH ×2 (10:11→22:09)
[2018-01-08] MEDS: ZESTRIL PO SCH (10:12)
--- NOTE | 2018-01-08 11:35 | XRay Report ---
Portable chest: Respiratory failure. Comparison is made to the prior exam at 1:47 AM on the same day. Endotracheal, nasogastric, and right jugular central venous lines remain unchanged in good positions. Mild patchy changes identified in the right infrahilar region may be slightly improved. The lungs otherwise appear generally clear. Stable appearing cardiac findings. Impression: Improving right infrahilar infiltrate.
--- NOTE | 2018-01-08 12:56 | Consultation ---
History of Present Illness Consult date: 01/08/18 Requesting physician: GIUSEPPE LANGSTON Reason for Consult: seizures Chief complaint: seizures History of present illness: This 37-year-old right-handed -Fijian male is admitted for multiple seizures. Though intubated and on some propofol, he is able to give some answers. By nodding his head to multiple choice, he indicates he has been on Keppra 500 mg twice a day (not 750 mg) and has not missed any doses and indicates he is not on Tegretol (also gave him the name carbamazepine) despite records indicating he has been on it and level obtained of 4.8. He was intubated because of being unable to protect his airway with decreased responsiveness and acidosis on blood gases. He is currently on norepinephrine for somewhat low blood pressure. CT shows old right frontotemporal encephalomalacia which is stable from prior scan. Past History Past Medical History: seizures, stroke (indicates the area of right frontal lobe damage was a stroke not an injury) Social history: other (cannot get further details since intubated). denies: smoking, alcohol abuse, prescription drug abuse, IV drug use Family history: denies: hypertension, stroke, other (no family history of epilepsy) Medications and Allergies Allergies Allergy/AdvReac Type Severity Reaction Status Date / Time No Known Allergies Allergy Verified 05/28/16 14:33 Home Medications Medication Instructions Recorded Confirmed Last Taken Type Aspirin [Aspirin BABY CHEW TAB] 81 mg PO QDAY 09/13/16 10/13/17 Unknown History Famotidine [Pepcid] 1 tab PO DAILY #30 tablet 09/17/16 10/13/17 Unknown Rx carBAMazepine [TEGretol] 100 mg PO BID #60 tab.chew 09/17/16 10/13/17 Unknown Rx levETIRAcetam [Keppra TAB] 750 mg PO BID #60 tablet 09/17/16 10/13/17 Unknown Rx Carvedilol [Coreg] 3.125 mg PO BID 10/13/17 10/13/17 Unknown History Lisinopril [Prinivil] 10 mg PO DAILY 10/13/17 10/13/17 Unknown History Sertraline [Zoloft] 25 mg PO QDAY 10/13/17 10/13/17 Unknown History Warfarin [Coumadin] 7.5 mg PO DAILY 10/13/17 10/13/17 Unknown History Active Meds: Active Medications Acetaminophen (Tylenol) 650 mg PO Q4H PRN PRN Reason: Pain MILD(1-3)/Fever >100.5/[place] Albuterol/Ipratropium (Duoneb *Not For Prn Use*) 1 ampul IH Q6HRT [facility] Last Admin: 01/08/18 07:10 Dose: 1 ampul Lipase/Protease/Amylase (Pancreaze Dr 10,500 Unit) 1 each FEEDTUBE PRN PRN PRN Reason: For Clogged Feeding Tube Aspirin (Baby Aspirin) 81 mg PO QDAY [facility] Last Admin: 01/08/18 09:52 Dose: 81 mg Carbamazepine (Tegretol) 200 mg FEEDTUBE QID [facility] Carvedilol (Coreg) 3.125 mg PO BID [facility] Last Admin: 01/08/18 10:10 Dose: Not Given Famotidine (Pepcid) 20 mg PO DAILY [facility] Last Admin: 01/08/18 09:52 Dose: 20 mg Hydrophilic Ointment (Vaseline Lip Therapy) 1 applic TP Q2HR PRN PRN Reason: Dry Lips Propofol (Diprivan 10 Mg/Ml) 1,000 mg in 100 mls @ 1.769 mls/hr IV TITR ONE; Protocol Stop: 01/10/18 04:37 Last Titration: 01/08/18 09:43 Dose: 15 mcg/kg/min, 5.307 mls/hr Norepinephrine (Levophed Drip 4 Mg/Ns 250 Ml) 4 mg in 250 mls @ 7.5 mls/hr IV TITR [facility]; Protocol Last Titration: 01/08/18 11:33 Dose: 6 mcg/min, 22.5 mls/hr Sodium Bicarbonate 150 meq/ (Dextrose) 1,150 mls @ 42 mls/hr IV DIRECT ONE Stop: 01/08/18 23:37 Last Admin: 01/07/18 21:00 Dose: 42 mls/hr Dextrose/Sodium Chloride (D5ns) 1,000 mls @ 100 mls/hr IV DIRECT [facility] Last Admin: 01/08/18 01:30 Dose: 100 mls/hr Sodium Chloride (Nacl 0.9% 1000 Ml) 1,000 mls @ 100 mls/hr IV DIRECT [facility] Levetiracetam 500 mg/ Sodium (Chloride) 105 mls @ 400 mls/hr IV Q6H [facility] Cefepime HCl (Maxipime/Ns 2 Gm/100 Ml) 2 gm in 100 mls @ 200 mls/hr IV Q8HR [facility] ; Protocol Vancomycin HCl 1,500 mg/ (Sodium Chloride) 515 mls @ 333.333 mls/hr IV ONCE ONE Stop: 01/08/18 15:32 Lisinopril (Zestril) 10 mg PO DAILY [facility] Last Admin: 01/08/18 10:12 Dose: Not Given Lorazepam (Ativan) 2 mg IV Q4H PRN PRN Reason: Agitation Morphine Sulfate (Morphine) 2 mg IV Q4H PRN PRN Reason: Pain, Moderate (4-6) Multi-Ingred Cream/Lotion/Oil/Oint (Artificial Tears Ophth Oint) 1 applic OU Q4HR PRN PRN Reason: Dry Eye(s) Ondansetron HCl (Zofran) 4 mg IV Q8H PRN PRN Reason: Nausea And Vomiting Sertraline HCl (Zoloft) 25 mg PO QDAY [facility] Last Admin: 01/08/18 09:51 Dose: 25 mg Simple Syrup (Simple Syrup) 15 ml FEEDTUBE PRN PRN PRN Reason: Hypoglycemia Simple Syrup (Simple Syrup) 30 ml FEEDTUBE PRN PRN PRN Reason: Hypoglycemia Sodium Bicarbonate (Sodium Bicarbonate) 325 mg FEEDTUBE PRN PRN PRN Reason: For Clogged Feeding Tube Sodium Chloride (Nacl 0.9% 500 Ml) 1 ml IV DIRECT [facility] Sodium Chloride (Sodium Chloride Flush Syringe 10 Ml) 10 ml IV BID [facility] Last Admin: 01/08/18 10:11 Dose: 10 ml Sodium Chloride (Sodium Chloride Flush Syringe 10 Ml) 10 ml IV PRN PRN PRN Reason: LINE FLUSH Vancomycin HCl (Vancomycin Pharmacy To Dose) 1 each IV PKCONSULT [facility]; Protocol Warfarin Sodium (Coumadin No Dose Today) 1 each PO 1700 ONE Stop: 01/08/18 17:01 Warfarin Sodium (Coumadin Pharmacy To Dose) 1 each PO PKCONSULT [facility] Review of Systems All systems: negative (Limited by being intubated, says yes to global headache sometimes with nausea but not currently nauseated though does have headache now. ) Physical Examination - Vital Signs Vital Signs: Vital Signs BP 114/55 01/07/18 19:46 - Physical Exam Narrative exam: General Appearance: well developed well nourished (per BMI) late 30s - Fijian male in NAD, orally intubated lying in bed and able to indicate answers to questions despite some propofol. HEENT: atraumatic, normocephalic; no bruits, 2+ Jami without soreness or induration or enlargement, sclerae nonicteric. Oropharynx cannot be seen well due to endotracheal tube. Neck: supple, no bruits. Heart: no murmur or extra sounds. Midline vertical incision scar and palpable pacemaker or defibrillator or combination. Extremities: no clubbing, cyanosis or edema. 2+ dorsalis pedis pulses bilaterally. Neurologic Exam: Mental Status: Awake, alert, oriented X 3 by multiple choice questions and nodding or shaking his head and sometimes mouthing the answer, no speech since intubated names pen. Names President. Since intubated, could not do full mental status testing. Cranial Nerves: coffey full, no papilledema, SVPs present, PERRL, EOMs full without nystagmus or diplopia, facial sensation intact to pinprick and light touch, no facial weakness, Montoya is midline, gags are positive, shoulder shrug is 5 X 2, tongue protrudes midline. Cerebellar: finger to nose is a little dysmetric on the left, heel to neff is slower on the left but still intact. Sensory: intact to light touch and pinprick, decreased vibrations in toes bilaterally. Double simultaneous stimulation shows extinction in the left hand. Motor Exam Upper Extremities: no drift or pronation, Jaylyn are very slow and low amplitude on the left, drafter automotive design layout are 5 right and 4- left, tone is a little increased on the left. No atrophy or fasciculations are noted visually. Motor Exam Lower Extremities: Moderate left leg lag, quadriceps are 5, anterior tibials and gastrocnemius are 5 right and 4+ left. Jaylyn intact. Tone is normal. No atrophy or fasciculations are noted visually. Reflexes: Palmomental, snout and jaw jerk are negative. Triceps are trace to 1 right and trace left, biceps are 1 right and trace to 1 left and brachioradialis are 1 bilaterally. Cleopatra's is negative bilaterally. Knee jerks and ankle jerks are 0 bilaterally even with reinforcement and without clonus. Toes are downgoing bilaterally to Babinski testing. Results - Laboratory Findings CBC and BMP: 01/08/18 04:59 01/08/18 04:59 Abnormal Lab Findings: Abnormal Labs 01/07/18 01/07/18 01/07/18 20:04 20:04 20:06 WBC 12.2 H Hct 47.2 H MCV 95 H MCHC 31 L Plt Count Lymph % (Auto) Lymph # Seg Neutrophils % Seg Neutrophils # PT INR POC ABG pH 6.761 L POC ABG pCO2 54.0 H POC ABG pO2 208 H Sodium Chloride 92.3 L Carbon Dioxide 10 L BUN Glucose 189 H Lactic Acid Calcium Total Protein 8.3 H Albumin 01/07/18 01/07/18 01/08/18 21:11 21:46 04:21 WBC Hct MCV MCHC Plt Count Lymph % (Auto) Lymph # Seg Neutrophils % Seg Neutrophils # PT INR POC ABG pH 7.067 L 7.479 H POC ABG pCO2 28.3 L POC ABG pO2 196 H 160 H Sodium Chloride Carbon Dioxide BUN Glucose Lactic Acid < 0.20 L Calcium Total Protein Albumin 01/08/18 01/08/18 01/08/18 04:59 04:59 07:41 WBC Hct MCV MCHC Plt Count 139 L Lymph % (Auto) 7.0 L Lymph # 0.7 L Seg Neutrophils % 87.7 H Seg Neutrophils # 8.4 H PT 49.1 H INR 4.87 H POC ABG pH POC ABG pCO2 POC ABG pO2 Sodium 135 L Chloride Carbon Dioxide 14 L BUN 8 L Glucose 186 H Lactic Acid Calcium 7.8 L D Total Protein 5.8 L D Albumin 3.0 L Assessment and Plan Impression: 1. Complex partial epilepsy, intractable 2. Hx of embolic stroke Plan: 1. EEG being done. Will provide preliminary reading in separate note. 2. Increased levetiracetam to 500 mg iv q6h (best to spread out when using iv form, and needs at least 2000 mg total for average adult size). 3. Increased carbamazepine since obviously must be taking (despite him saying no) and since level is a little low. Could later taper him off it very slowly ( more risk of withdrawal seizures than for other drugs) if he does well on increased Keppra. 40 minutes critical care time spent with this patient. Thank you for an interesting consultation in my area of subspecialty (epilepsy) on this unfortunate late 30s male. When discharged, I suggest 1000 mg levetiracetam twice a day. He can stay with the 500 mg size if he has them at home. He denied having at 750 mg size or dose. You may want to check with his pharmacy to verify his home doses. For carbamazepine, if he can afford it I would say to give him the extended release version since fewer side effects and works better and give him 400 mg twice a day which you can do with either 2 of a 200 mg size or one of a 400 mg size bid. He should followup with a neurologist such as Dr. Loera as an outpatient, if he is not already followed by one. Signing off, call for any questions next week or consult Dr. Loera if need be over the weekend.
[2018-01-08] MEDS ORDERED: VANCOMYCIN PHARMACY TO DOSE IV SCH (13:00)
[2018-01-08] MEDS ORDERED: NACL 0.9% 500 ML 500 ML IV NR (13:30)
--- NOTE | 2018-01-08 13:37 | Electroencephalogram Report ---
Electroencephalogram EEG Description: EEG preliminary findings: no alpha activity. Intermittent left frontotemporal slowing, no epileptiform activity. Interpretation: EEG preliminary reading: mildly abnormal waking EEG due to intermittent left frontotemporal slowing (opposite side from his encephalomalacia) but no epileptiform activity. May be able to have a brain MRI at [facility] or [facility] where they have experience coordinating with electrophysiology [facility] to be able to arrange it as outpatient.
[2018-01-08] MEDS: MAXIPIME/NS 2 GM/100 ML 2 GM/100 ML BAG IV SCH ×2 (13:42→22:47)
[2018-01-08] MEDS ORDERED: VANCOMYCIN 1,500 MG in NACL 0.9% 500 ML 500 ML IV ONE (14:00)
--- NOTE | 2018-01-08 14:00 | Consultation ---
History of Present Illness Consult date: 01/08/18 Requesting physician: VASILIY MONGE Reason for consult: other (Acute Hypoxemic Resp Failure on MVS; Status Epilepticus) History of present illness: PULMONARY / CCM CONSULT NOTE (Full dictation # [id number]) Please see dictated notes for full details Past History Past Medical History: seizures, stroke (indicates the area of right frontal lobe damage was a stroke not an injury) Social history: other (cannot get further details since intubated). denies: smoking, alcohol abuse, prescription drug abuse, IV drug use Family history: denies: hypertension, stroke, other (no family history of epilepsy) Medications and Allergies Allergies Allergy/AdvReac Type Severity Reaction Status Date / Time No Known Allergies Allergy Verified 05/28/16 14:33 Home Medications Medication Instructions Recorded Confirmed Last Taken Type Aspirin [Aspirin BABY CHEW TAB] 81 mg PO QDAY 09/13/16 10/13/17 Unknown History Famotidine [Pepcid] 1 tab PO DAILY #30 tablet 09/17/16 10/13/17 Unknown Rx carBAMazepine [TEGretol] 100 mg PO BID #60 tab.chew 09/17/16 10/13/17 Unknown Rx levETIRAcetam [Keppra TAB] 750 mg PO BID #60 tablet 09/17/16 10/13/17 Unknown Rx Carvedilol [Coreg] 3.125 mg PO BID 10/13/17 10/13/17 Unknown History Lisinopril [Prinivil] 10 mg PO DAILY 10/13/17 10/13/17 Unknown History Sertraline [Zoloft] 25 mg PO QDAY 10/13/17 10/13/17 Unknown History Warfarin [Coumadin] 7.5 mg PO DAILY 10/13/17 10/13/17 Unknown History Active Meds: Active Medications Acetaminophen (Tylenol) 650 mg PO Q4H PRN PRN Reason: Pain MILD(1-3)/Fever >100.5/[place] Albuterol/Ipratropium (Duoneb *Not For Prn Use*) 1 ampul IH Q6HRT [facility] Last Admin: 01/08/18 07:10 Dose: 1 ampul Lipase/Protease/Amylase (Pancre[address]ryan Dr 10,500 Unit) 1 each FEEDTUBE PRN PRN PRN Reason: For Clogged Feeding Tube Aspirin (Baby Aspirin) 81 mg PO QDAY [facility] Last Admin: 01/08/18 09:52 Dose: 81 mg Carbamazepine (Tegretol) 200 mg FEEDTUBE QID [facility] Last Admin: 01/08/18 13:43 Dose: 200 mg Carvedilol (Coreg) 3.125 mg PO BID [facility] Last Admin: 01/08/18 10:10 Dose: Not Given Famotidine (Pepcid) 20 mg PO DAILY [facility] Last Admin: 01/08/18 09:52 Dose: 20 mg Hydrophilic Ointment (Vaseline Lip Therapy) 1 applic TP Q2HR PRN PRN Reason: Dry Lips Propofol (Diprivan 10 Mg/Ml) 1,000 mg in 100 mls @ 1.769 mls/hr IV TITR ONE; Protocol Stop: 01/10/18 04:37 Last Titration: 01/08/18 12:55 Dose: 0 mcg/kg/min, 0 mls/hr Norepinephrine (Levophed Drip 4 Mg/Ns 250 Ml) 4 mg in 250 mls @ 7.5 mls/hr IV TITR [facility]; Protocol Last Titration: 01/08/18 11:33 Dose: 6 mcg/min, 22.5 mls/hr Sodium Bicarbonate 150 meq/ (Dextrose) 1,150 mls @ 42 mls/hr IV DIRECT ONE Stop: 01/08/18 23:37 Last Admin: 01/07/18 21:00 Dose: 42 mls/hr Dextrose/Sodium Chloride (D5ns) 1,000 mls @ 100 mls/hr IV DIRECT [facility] Last Admin: 01/08/18 01:30 Dose: 100 mls/hr Sodium Chloride (Nacl 0.9% 1000 Ml) 1,000 mls @ 100 mls/hr IV DIRECT [facility] Levetiracetam 500 mg/ Sodium (Chloride) 105 mls @ 400 mls/hr IV Q6H [facility] Cefepime HCl (Maxipime/Ns 2 Gm/100 Ml) 2 gm in 100 mls @ 200 mls/hr IV Q8HR [facility] ; Protocol Last Admin: 01/08/18 13:42 Dose: 200 mls/hr Vancomycin HCl 1,500 mg/ (Sodium Chloride) 515 mls @ 333.333 mls/hr IV ONCE ONE Stop: 01/08/18 15:32 Last Admin: 01/08/18 13:43 Dose: 333.333 mls/hr Sodium Chloride (Nacl 0.9% 500 Ml) 500 mls @ 0 mls/hr IV ONCE NR Stop: 01/08/18 14:30 Vancomycin HCl (Vancomycin/Ns 1 Gm/250 Ml) 1 gm in 250 mls @ 166.667 mls/hr IV Q12H [facility] Lisinopril (Zestril) 10 mg PO DAILY [facility] Last Admin: 01/08/18 10:12 Dose: Not Given Lorazepam (Ativan) 2 mg IV Q4H PRN PRN Reason: Agitation Morphine Sulfate (Morphine) 2 mg IV Q4H PRN PRN Reason: Pain, Moderate (4-6) Multi-Ingred Cream/Lotion/Oil/Oint (Artificial Tears Ophth Oint) 1 applic OU Q4HR PRN PRN Reason: Dry Eye(s) Ondansetron HCl (Zofran) 4 mg IV Q8H PRN PRN Reason: Nausea And Vomiting Sertraline HCl (Zoloft) 25 mg PO QDAY [facility] Last Admin: 01/08/18 09:51 Dose: 25 mg Simple Syrup (Simple Syrup) 15 ml FEEDTUBE PRN PRN PRN Reason: Hypoglycemia Simple Syrup (Simple Syrup) 30 ml FEEDTUBE PRN PRN PRN Reason: Hypoglycemia Sodium Bicarbonate (Sodium Bicarbonate) 325 mg FEEDTUBE PRN PRN PRN Reason: For Clogged Feeding Tube Sodium Chloride (Nacl 0.9% 500 Ml) 1 ml IV DIRECT [facility] Last Admin: 01/08/18 13:58 Dose: 1 ml Sodium Chloride (Sodium Chloride Flush Syringe 10 Ml) 10 ml IV BID [facility] Last Admin: 01/08/18 10:11 Dose: 10 ml Sodium Chloride (Sodium Chloride Flush Syringe 10 Ml) 10 ml IV PRN PRN PRN Reason: LINE FLUSH Vancomycin HCl (Vancomycin Pharmacy To Dose) 1 each IV PKCONSULT [facility]; Protocol Warfarin Sodium (Coumadin No Dose Today) 1 each PO 1700 ONE Stop: 01/08/18 17:01 Warfarin Sodium (Coumadin Pharmacy To Dose) 1 each PO PKCONSULT [facility] Physical Examination Vital signs: Vital Signs BP 114/55 01/07/18 19:46 Results - Laboratory Findings CBC and BMP: 01/08/18 04:59 01/08/18 04:59 ABG POC ABG pH 7.479 (7.35-7.45) H 01/08/18 04:21 POC ABG pCO2 28.3 (35-45) L 01/08/18 04:21 POC ABG pO2 160 (80-105) H 01/08/18 04:21 POC ABG HCO3 21.0 01/08/18 04:21 POC ABG Total CO2 22 01/08/18 04:21 POC ABG O2 Sat 100 01/08/18 04:21 PT/INR, D-dimer PT 49.1 Sec. (12.2-14.9) H 01/08/18 07:41 INR 4.87 (0.87-1.13) H 01/08/18 07:41 Abnormal lab findings: Abnormal Labs 01/07/18 01/07/18 01/07/18 20:04 20:04 20:06 WBC 12.2 H Hct 47.2 H MCV 95 H MCHC 31 L Plt Count Lymph % (Auto) Lymph # Seg Neutrophils % Seg Neutrophils # PT INR POC ABG pH 6.761 L POC ABG pCO2 54.0 H POC ABG pO2 208 H Sodium Chloride 92.3 L Carbon Dioxide 10 L BUN Glucose 189 H Lactic Acid Calcium Total Protein 8.3 H Albumin 01/07/18 01/07/18 01/08/18 21:11 21:46 04:21 WBC Hct MCV MCHC Plt Count Lymph % (Auto) Lymph # Seg Neutrophils % Seg Neutrophils # PT INR POC ABG pH 7.067 L 7.479 H POC ABG pCO2 28.3 L POC ABG pO2 196 H 160 H Sodium Chloride Carbon Dioxide BUN Glucose Lactic Acid < 0.20 L Calcium Total Protein Albumin 01/08/18 01/08/18 01/08/18 04:59 04:59 07:41 WBC Hct MCV MCHC Plt Count 139 L Lymph % (Auto) 7.0 L Lymph # 0.7 L Seg Neutrophils % 87.7 H Seg Neutrophils # 8.4 H PT 49.1 H INR 4.87 H POC ABG pH POC ABG pCO2 POC ABG pO2 Sodium 135 L Chloride Carbon Dioxide 14 L BUN 8 L Glucose 186 H Lactic Acid Calcium 7.8 L D Total Protein 5.8 L D Albumin 3.0 L
--- NOTE | 2018-01-08 14:35 | XRay Report ---
Portable KUB: Tube placement. A nasogastric tube is well positioned in the distal stomach. There is a moderate amount of colonic gas and fecal matter. No small bowel gas of significance identified. No free air. The visualized lungs are clear. Impression: Well-positioned feeding tube.
[2018-01-08] MEDS: KEPPRA 500 MG in NACL 0.9% 100 ML IV SCH ×2 (17:00→23:00)
[2018-01-08] MEDS ORDERED: COUMADIN PO SCH (17:00)
[2018-01-08] MEDS ORDERED: COUMADIN NO DOSE TODAY PO ONE (17:00)
[2018-01-08] MEDS: TYLENOL PO PRN (19:32)
[2018-01-08] MEDS ORDERED: LOVENOX SUB-Q SCH (22:00)
--- NOTE | 2018-01-09 00:45 | Consultation ---
PULMONARY CRITICAL CARE CONSULTATION CONSULTING PHYSICIAN: Ángel Alejandro MD REASON FOR CONSULTATION: Acute hypoxemic respiratory failure, on mechanical ventilator support, status epilepticus. CHIEF COMPLAINT AND HISTORY OF PRESENT ILLNESS: The patient is a 37-year-old -Spanish male with past medical history significant amongst other things for a diagnosis of seizure disorder, on home anti-seizure medications, who in retrospect tells me today that he has been compliant with his medications, brought into the emergency room by family yesterday, had two generalized tonic-clonic seizures at home, did not return to baseline in between. Ultimately, they self terminated. EMS arrived. He had a [place] coma scale of 7. He was brought into the Emergency Room. In the ER, he had another 2 episodes that did not respond to IV Ativan. He reportedly had not been having seizures up until the day of presentation for about 9 months and was compliant with his Tegretol. Because of his decreased responsiveness and continued seizures and inability to protect his airways, he was endotracheally intubated and ICU admission was requested. When I stopped by to see him in the ICU, he was actually on a Levophed drip, it was going about 6 mcg per minute. He was about to begin an EEG. It was a little bit more appropriate. He was able to respond to simple questions appropriately. Denied any chest pain. Denied any vomiting or overt aspiration. Denied fevers or chills. Denied illicit drug use or abuse, and again maintained that he had been compliant with his medications. I do not have any history of trauma from the seizures that he had and certainly not in the intensive care unit. The above is really as much of the history of presentation as I have. PAST MEDICAL HISTORY: However, significant for history of hypertension and cerebrovascular accident in 02/2015, history of congestive heart failure, history of seizure disorder, and a questionable history of dementia. 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 PAST SURGICAL HISTORY: He has had an AICD placed before. MEDICATIONS: He was on at the time I stopped by to see were reviewed, pertinent medications included the following: Aspirin 81 mg p.o. daily, Tegretol 200 mg via feeding tube q.i.d., Coreg 3.125 mg p.o. b.i.d. All p.o. meds via the feeding tube. He was also on cefepime 2 g IV q.8 hours. He was on Keppra 500 mg IV q. 6 hours. He was on Zestril 10 mg p.o. daily, p.r.n. Ativan, morphine 2 mg IV q. 4 hours p.r.n. moderate pain. Levophed drip was going as I mentioned above. Propofol drip was going at 10 mcg per kilogram per minute. Zoloft 25 mg p.o. daily. He had been on a D5W drip with 3 amps of bicarbonate per liter going at 42 mL per hour. He received vancomycin and was 1 gram IV q. 12 hours. He was also receiving Coumadin. ALLERGIES: No known drug allergies. DIET: Thin gentleman. Denied acute weight loss or gain, preceding few weeks to months. FAMILY AND SOCIAL HISTORY: Lives in the community. Denies alcohol, tobacco, or illicit drug use or abuse. Family history is otherwise unobtainable. REVIEW OF SYSTEMS: A little difficult to obtain secondary to his medical and mental history. He denied gross hematochezia or melena. Denied gross hematuria. No hematemesis, no bloody tracheal secretions. He had the seizures. He denied polyuria or polydipsia. Complete review of system was attempted to obtain. Pertinent positives and/or negatives as in body of history above, otherwise they were unobtainable secondary to the patient's medical condition. PHYSICAL EXAMINATION: VITAL SIGNS: At presentation in the Emergency Room, temperature was 98.8 degrees Fahrenheit rectally, pulse 77, respiratory rate 28, blood pressure 114/55, oxygen sats were as low as 66, inspired oxygen concentration was not recorded. Currently, blood pressure was 104/54 that was on 6 mcg per minute of Levophed. GENERAL: He is a young, but middle-aged looking -Spanish male. Normocephalic, atraumatic, intubated on the mechanical ventilator with a mildly increased work of breathing. HEAD, EYES, EARS, NOSE, AND THROAT: He is anicteric. No conjunctival erythema. Endotracheal tube is taped around 24 cm at the lips. Oropharynx is moist. No gross jugular venous distention, no palpable lymph nodes in the supraclavicular or submandibular lymph node chains. LUNGS: Auscultation of both lung coffey significant for scant basilar rhonchi, clear mostly, no wheezing. The chest wall has AICD implanted in the left upper anterior chest wall without any cellulitis around it. HEART: Heart sounds 1 and 2 were heard at the time of my evaluation, regular, appeared to be a paced rhythm. There was a soft systolic murmur. ABDOMEN: Soft, flat. Bowel sounds are positive, nontender, no palpable hepatosplenomegaly. EXTREMITIES: Without overt digital clubbing, cyanosis, or pedal edema. NEUROLOGIC: Pupils equal, round, about 4 mm, reactive to light. Extraocular muscle movements are intact. He moves all 4 extremities spontaneously. Power is 4-5/5 bilaterally. SKIN: The skin is of normal turgor, no cellulitis, no rash. He does have changes in the left upper anterior chest wall and an old scar in the midline of the chest anteriorly. LABORATORY DATA: From my review are as follows: Admission white cell count 12,200, hemoglobin 14.4, hematocrit 47.2, platelet count 215. No manual differential. Arterial blood gas at presentation showed a pH of 7.07, pCO2 of 37, pO2 of 196 that was on 60% FiO2, ventilator settings were unclear. Serum sodium was 138, potassium 3.7, chloride 92, bicarbonate was 10, BUN was 11, creatinine was 1.2, and glucose 189. Lactic acid level was within normal limits. Liver function test within normal limits. Urine drug screen was done. It was presumptive negative for all indices. ABG today shows a pH of 7.48, pCO2 of 28, pO2 of 160 on 40%, tidal volumes 500, PEEP of 5, and rate of 18. Tracheal aspirate has been sent. Radiographic studies have been reviewed. I have also reviewed the radiologist's interpretation and on some of these studies, a CT scan of his head was done, essentially it showed no acute process. Chest x-ray was also done at presentation. Initial chest x-ray: ET tube is about 4 cm above the aleshia in good position. Median sternotomy wires are in place. He has an implanted left upper anterior chest wall prosthetic cardiac device. No gross pneumothorax, no gross bony fracture. The most recent chest x-ray from today shows the development of a right lower lobe infiltrate. The film is rotated to the left. No pneumothorax. Suggestion of consolidation of the right middle lobe region. ASSESSMENT: 1. Acute hypoxemic respiratory failure, on mechanical ventilatory support. 2. Likely aspiration pneumonia with a right lower lobe, right middle lobe infiltrate. 3. Status epilepticus, resolved. 4. History of cardiomyopathy, congestive heart failure. 5. Seizure disorder. 6. Congenital heart disease. 7. Oropharyngeal dysphagia. 8. Leukocytosis at admission. 9. Metabolic acidosis. 10. Mild hyponatremia. PLAN: Reduce set rate on mechanical ventilator to 12. Begin weaning via the pressure support mode of ventilation as tolerated. Wean FiO2 to keep sats greater than or equal to about 90%. [place] daily spontaneous breathing trials and daily sedation assessment trials. Ventilator-associated pneumonia bundle has been initiated. Enteral nutrition will be started. A KUB will be ordered to confirm intraabdominal placement of the NG tube. Empiric antibiotic therapies will continue for now. I will get a stat repeat lactic acid level as well as a CRP level and if those are unremarkable, I will deescalate to monotherapy probably with Levaquin monotherapy. Tracheal aspirate has been sent. He will be pancultured for any febrile episodes greater than or equal to about 101 degrees Fahrenheit. Neurology evaluation is ongoing. He is about to get an EEG. He has been started on GI prophylaxis. Coumadin is being managed by pharmacy, but is on hold as the INR is elevated at 4.87. Flu and pneumonia vaccination have been addressed per protocol. Thank you very much for the consult Dr. Alejandro. We will follow along. We will make further recommendations as picture progresses/becomes clearer. He is critically ill on life-sustaining interventions including mechanical ventilatory support and Levophed. Levophed will be weaned to keep mean arterial pressures greater than or equal to about 65 mmHg. At this time, I have spent about 40 minutes of critical care time without overlap and excluding any procedural time that may be necessary. I should mention he has a right IJ line in place. JOB# [id number] PALMIRA/RY FULLER
[2018-01-09] MEDS: DUONEB *Not for PRN Use IH SCH ×4 (01:15→19:42)
[2018-01-09] MEDS: D5NS 1,000 ML IV SCH ×2 (01:58→23:24)
[2018-01-09] MEDS ORDERED: VANCOMYCIN/NS 1 GM/250 ML 1 GM/250 ML BAG IV SCH (02:00)
[2018-01-09 03:41] LABS: Bacteria,Urine 1+ /HPF (Negative); Bilirubin,Urine NEG (Negative); Blood,Urine NEG (Negative); Color,Urine Yellow (Yellow); Mucus,Urine FEW /HPF; Protein,Urine <15 mg/dL mg/dL (Negative); RBC,Urine < 1.0 /HPF (0.0-6.0); Urobilinogen,Urine < 2.0 mg/dL (<2.0)
--- NOTE | 2018-01-09 04:29 | XRay Report ---
FINAL REPORT PROCEDURE: XR CHEST 1V AP TECHNIQUE: Chest radiograph anteroposterior view. CPT 88682 HISTORY: follow up respiratory failure COMPARISON: No prior studies are available for comparison. FINDINGS: Heart: Heart is enlarged. Pacemaker leads are in proper position. Mediastinum/Vessels: Normal. Lungs/Pleural space: There are no infiltrates, effusions or pneumothoraces.. Bony thorax: No acute osseous abnormality. Life support devices: Endotracheal tube is in the mid trachea. NG tube is in the stomach. There is a right-sided central venous catheter. The tip is in the superior vena cava.. IMPRESSION: Heart is enlarged. Pacemaker leads are in proper position. There are no infiltrates, effusions or pneumothoraces.. Endotracheal tube is in the mid trachea. NG tube is in the stomach. There is a right-sided central venous catheter. The tip is in the superior vena cava.. .
[2018-01-09] MEDS: MAXIPIME/NS 2 GM/100 ML 2 GM/100 ML BAG IV SCH ×3 (05:39→23:13)
[2018-01-09 05:40] LABS: INR 5.54 (0.87-1.13)
[2018-01-09] MEDS: KEPPRA 500 MG in NACL 0.9% 100 ML IV SCH ×4 (07:03→23:12)
[2018-01-09] MEDS: LEVOPHED DRIP 4 MG/NS 250 ML 4 MG/250 ML BAG IV SCH ×2 (07:55→23:17)
[2018-01-09] MEDS: COREG PO SCH ×2 (10:09→23:14)
[2018-01-09] MEDS: ZESTRIL PO SCH (10:10)
[2018-01-09] MEDS: BABY ASPIRIN PO SCH (10:36)
[2018-01-09] MEDS: PEPCID PO SCH (10:36)
[2018-01-09] MEDS: ZOLOFT PO SCH (10:37)
[2018-01-09] MEDS: SODIUM CHLORIDE FLUSH SYRINGE 10 ML IV SCH ×2 (10:38→23:12)
--- NOTE | 2018-01-09 10:58 | Progress Note ---
Assessment and Plan -acute hypoxemic respiratory failure -Status epilepticus -h/o Cardiomyopathy with AICD/PPM -Metabolic/lactic acidosis( multifactorial...s/p seizures,sepsis) -h/o Congenital heart disease -Mild hyponatremia -SAT and SBT today-get weaning parameters to assess suitability for liberation from MVS -VAP bundle addressed -Volume resuscitation, gentle -Vasopressor support to keep MAP >65 -Continue with broad spectrum antibiotics. Follow up cultures and de-escalate antibiotics based on cultures when they become available -Agitation and analgesia management -Atkinson catheter in this critically ill patient requiring accurate intake and output measurements and with sacral decubitus ulcers -2D echocardiogram to evaluate LVEF, pulmonary HTN and for congenital heart abnormalities -Aspiration precautions -Stress ulcer prophylaxis -VTE prophylaxis----supratherapeutic INR -Monitor closely for bleeding complications -Continue tube feedings -Once liberated from MVS, plan on bedsdie swallow evaluation -Accucheck with glycemic control, goal blood glucose <180mg/dL -get CRP and procalcitonin levels to help direst antibiotic therapy -Replete electrolytes as indicated. Keep Potassium at 4 and Magnesium at 2 The high probability of a clinically significant, sudden or life threatening deterioration of the respiratory, neurological, cardiovascular systems required my full and direct attention, intervention and personal management. The aggregate critical care time was [45] minutes. This time is in addition to time spent performing reported procedures but includes the following: [x] Data Review and interpretation [x] Patient assessment and monitoring of vital signs [x] Documentation [x] Medication orders and management Subjective Date of service: 01/09/18 Principal diagnosis: Hpoxic respiratory failure, status epilepticus Interval history: 37-year-old right-handed -[place]ian male is admitted for multiple seizures. . He was intubated because of being unable to protect his airway with decreased responsiveness and acidosis on blood gases. He is currently on norepinephrine for hypotension, lactic acidosis without a clear clinical source for his hypoperfusion. CT shows old right frontotemporal encephalomalacia . Patient was seen and examined. 24 hour events were reviewed. No adverese events overnight. Vitals, labs, consult notes and chart were reviewed. Discussed with RT and RN. Currently on norepinephrine, propofol was held this morning, per protocol, for SAT and SBT. he is currently on PSV 10/5, he is generating spontaneous tidal volumes above 350ml and is comfortable. He is able to nod in affirmation of certain questions. Attempting to mouth words to my questions. Objective Vital Signs - 12hr 01/08/18 01/08/18 01/08/18 23:00 23:15 23:16 Temperature Pulse Rate 73 70 73 Pulse Rate [ Anterior Bilateral Throughout] Pulse Rate [ From Monitor] Respiratory 15 13 Rate Respiratory Rate [Anterior Bilateral Throughout] Blood Pressure 114/61 113/62 114/61 O2 Sat by Pulse 99 100 100 Oximetry 01/08/18 01/08/18 01/08/18 23:30 23:32 23:45 Temperature 98.1 F Pulse Rate 70 70 Pulse Rate [ Anterior Bilateral Throughout] Pulse Rate [ From Monitor] Respiratory 14 12 Rate Respiratory Rate [Anterior Bilateral Throughout] Blood Pressure 119/64 108/58 O2 Sat by Pulse 100 99 Oximetry 01/09/18 01/09/18 01/09/18 00:00 00:15 00:30 Temperature Pulse Rate 70 70 70 Pulse Rate [ Anterior Bilateral Throughout] Pulse Rate [ 70 From Monitor] Respiratory 12 13 12 Rate Respiratory Rate [Anterior Bilateral Throughout] Blood Pressure 108/58 117/60 110/57 O2 Sat by Pulse 99 99 99 Oximetry 01/09/18 01/09/18 01/09/18 00:45 01:00 01:15 Temperature Pulse Rate 70 70 70 Pulse Rate [ 70 Anterior Bilateral Throughout] Pulse Rate [ From Monitor] Respiratory 13 13 12 Rate Respiratory 13 Rate [Anterior Bilateral Throughout] Blood Pressure 113/58 110/56 108/55 O2 Sat by Pulse 100 99 100 Oximetry 01/09/18 01/09/18 01/09/18 01:25 01:30 01:45 Temperature Pulse Rate 72 70 Pulse Rate [ 71 Anterior Bilateral Throughout] Pulse Rate [ From Monitor] Respiratory 12 10 L Rate Respiratory 12 Rate [Anterior Bilateral Throughout] Blood Pressure 115/60 118/62 O2 Sat by Pulse 100 98 Oximetry 01/09/18 01/09/18 01/09/18 02:00 02:15 02:30 Temperature Pulse Rate 70 78 70 Pulse Rate [ Anterior Bilateral Throughout] Pulse Rate [ 70 From Monitor] Respiratory 13 10 L 12 Rate Respiratory Rate [Anterior Bilateral Throughout] Blood Pressure 113/60 118/65 107/60 O2 Sat by Pulse 99 100 99 Oximetry 01/09/18 01/09/18 01/09/18 02:45 03:01 03:15 Temperature Pulse Rate 71 78 74 Pulse Rate [ Anterior Bilateral Throughout] Pulse Rate [ From Monitor] Respiratory 20 13 15 Rate Respiratory Rate [Anterior Bilateral Throughout] Blood Pressure 107/60 107/60 107/60 O2 Sat by Pulse Oximetry 01/09/18 01/09/18 01/09/18 03:29 03:30 03:45 Temperature Pulse Rate 70 70 70 Pulse Rate [ Anterior Bilateral Throughout] Pulse Rate [ From Monitor] Respiratory 13 13 Rate Respiratory Rate [Anterior Bilateral Throughout] Blood Pressure 106/70 117/66 119/66 O2 Sat by Pulse 100 100 100 Oximetry 01/09/18 01/09/18 01/09/18 04:00 04:15 04:30 Temperature 97.6 F Pulse Rate 70 70 70 Pulse Rate [ Anterior Bilateral Throughout] Pulse Rate [ 70 From Monitor] Respiratory 14 14 14 Rate Respiratory Rate [Anterior Bilateral Throughout] Blood Pressure 121/69 125/69 128/67 O2 Sat by Pulse 100 100 100 Oximetry 01/09/18 01/09/18 01/09/18 04:45 05:01 05:15 Temperature Pulse Rate 70 70 70 Pulse Rate [ Anterior Bilateral Throughout] Pulse Rate [ From Monitor] Respiratory 15 15 15 Rate Respiratory Rate [Anterior Bilateral Throughout] Blood Pressure 129/78 130/54 128/65 O2 Sat by Pulse 100 100 100 Oximetry 01/09/18 01/09/18 01/09/18 05:30 05:45 06:00 Temperature Pulse Rate 70 70 70 Pulse Rate [ Anterior Bilateral Throughout] Pulse Rate [ 70 From Monitor] Respiratory 15 15 14 Rate Respiratory Rate [Anterior Bilateral Throughout] Blood Pressure 127/64 135/64 129/62 O2 Sat by Pulse 100 100 100 Oximetry 01/09/18 01/09/18 01/09/18 06:15 06:31 06:45 Temperature Pulse Rate 70 70 70 Pulse Rate [ Anterior Bilateral Throughout] Pulse Rate [ From Monitor] Respiratory 13 15 15 Rate Respiratory Rate [Anterior Bilateral Throughout] Blood Pressure 126/61 117/53 111/51 O2 Sat by Pulse 100 100 100 Oximetry 01/09/18 01/09/18 01/09/18 07:00 07:15 07:30 Temperature Pulse Rate 70 70 70 Pulse Rate [ Anterior Bilateral Throughout] Pulse Rate [ From Monitor] Respiratory 16 13 13 Rate Respiratory Rate [Anterior Bilateral Throughout] Blood Pressure 124/57 118/65 122/58 O2 Sat by Pulse 100 100 100 Oximetry 01/09/18 01/09/18 01/09/18 07:45 08:00 08:01 Temperature 98.2 F Pulse Rate 70 70 Pulse Rate [ Anterior Bilateral Throughout] Pulse Rate [ 70 From Monitor] Respiratory 12 23 13 Rate Respiratory Rate [Anterior Bilateral Throughout] Blood Pressure 122/58 125/52 O2 Sat by Pulse 100 99 100 Oximetry 01/09/18 01/09/18 01/09/18 08:15 08:30 08:32 Temperature Pulse Rate 70 70 71 Pulse Rate [ Anterior Bilateral Throughout] Pulse Rate [ From Monitor] Respiratory 14 19 20 Rate Respiratory Rate [Anterior Bilateral Throughout] Blood Pressure 116/57 119/60 O2 Sat by Pulse 100 100 98 Oximetry 01/09/18 01/09/18 01/09/18 08:45 09:00 09:15 Temperature Pulse Rate 70 70 70 Pulse Rate [ Anterior Bilateral Throughout] Pulse Rate [ From Monitor] Respiratory 21 18 21 Rate Respiratory Rate [Anterior Bilateral Throughout] Blood Pressure 115/55 119/59 118/53 O2 Sat by Pulse 100 100 100 Oximetry 01/09/18 01/09/18 01/09/18 09:30 09:41 09:45 Temperature Pulse Rate 70 70 Pulse Rate [ 70 Anterior Bilateral Throughout] Pulse Rate [ From Monitor] Respiratory 23 18 Rate Respiratory 25 H Rate [Anterior Bilateral Throughout] Blood Pressure 117/54 118/55 O2 Sat by Pulse 100 100 Oximetry 01/09/18 01/09/18 01/09/18 09:50 10:00 10:09 Temperature Pulse Rate 70 70 Pulse Rate [ 74 Anterior Bilateral Throughout] Pulse Rate [ From Monitor] Respiratory 24 Rate Respiratory 25 H Rate [Anterior Bilateral Throughout] Blood Pressure 118/55 114/55 O2 Sat by Pulse 100 Oximetry 01/09/18 10:10 Temperature Pulse Rate 70 Pulse Rate [ Anterior Bilateral Throughout] Pulse Rate [ From Monitor] Respiratory Rate Respiratory Rate [Anterior Bilateral Throughout] Blood Pressure 114/55 O2 Sat by Pulse Oximetry Constitutional: no acute distress, other (orally intubated to MVS, OGT in place) Eyes: non-icteric ENT: oropharynx moist Neck: supple, no lymphadenopathy, no JVD, other (Right IJ CVC) Effort: normal Ascultation: Bilateral: diminished breath sounds, rhonchi Cardiovascular: other (paced, S1,S2, systolic murmur) Gastrointestinal: normoactive bowel sounds, soft, non-tender, non-distended, other (no hepatosplenomegally) Integumentary: normal Extremities: no cyanosis, no edema, pink and warm, pulses normal, other (upper extremity digital clubbing) Neurologic: normal mental status, non-focal exam, pupils equal and round Psychiatric: mood appropriate, affect normal CBC and BMP: 01/08/18 04:59 01/08/18 04:59 ABG, PT/INR, D-dimer: ABG POC ABG pH 7.433 (7.35-7.45) 01/09/18 10:43 POC ABG pCO2 41.7 (35-45) 01/09/18 10:43 POC ABG pO2 112 (80-105) H 01/09/18 10:43 POC ABG HCO3 27.9 01/09/18 10:43 POC ABG Total CO2 29 01/09/18 10:43 POC ABG O2 Sat 99 01/09/18 10:43 PT/INR, D-dimer PT 54.5 Sec. (12.2-14.9) H 01/09/18 04:09 INR 5.54 (0.87-1.13) H* 01/09/18 04:09 Abnormal lab findings: Abnormal Labs 01/07/18 01/07/18 01/07/18 20:04 20:04 20:06 WBC 12.2 H Hct 47.2 H MCV 95 H MCHC 31 L Plt Count Lymph % (Auto) Lymph # Seg Neutrophils % Seg Neutrophils # PT INR POC ABG pH 6.761 L POC ABG pCO2 54.0 H POC ABG pO2 208 H Sodium Chloride 92.3 L Carbon Dioxide 10 L BUN Glucose 189 H Lactic Acid Calcium C-Reactive Protein Total Protein 8.3 H Albumin Urine WBC (Auto) 01/07/18 01/07/18 01/08/18 21:11 21:46 04:21 WBC Hct MCV MCHC Plt Count Lymph % (Auto) Lymph # Seg Neutrophils % Seg Neutrophils # PT INR POC ABG pH 7.067 L 7.479 H POC ABG pCO2 28.3 L POC ABG pO2 196 H 160 H Sodium Chloride Carbon Dioxide BUN Glucose Lactic Acid < 0.20 L Calcium C-Reactive Protein Total Protein Albumin Urine WBC (Auto) 01/08/18 01/08/18 01/08/18 04:59 04:59 07:41 WBC Hct MCV MCHC Plt Count 139 L Lymph % (Auto) 7.0 L Lymph # 0.7 L Seg Neutrophils % 87.7 H Seg Neutrophils # 8.4 H PT 49.1 H INR 4.87 H POC ABG pH POC ABG pCO2 POC ABG pO2 Sodium 135 L Chloride Carbon Dioxide 14 L BUN 8 L Glucose 186 H Lactic Acid Calcium 7.8 L D C-Reactive Protein Total Protein 5.8 L D Albumin 3.0 L Urine WBC (Auto) 01/08/18 01/09/18 01/09/18 13:34 01:09 01:45 WBC Hct MCV MCHC Plt Count Lymph % (Auto) Lymph # Seg Neutrophils % Seg Neutrophils # PT INR POC ABG pH POC ABG pCO2 POC ABG pO2 Sodium Chloride Carbon Dioxide BUN Glucose Lactic Acid 2.10 H* Calcium C-Reactive Protein 6.40 H Total Protein Albumin Urine WBC (Auto) 8.0 H 01/09/18 01/09/18 01/09/18 03:56 04:05 04:09 WBC Hct MCV MCHC Plt Count Lymph % (Auto) Lymph # Seg Neutrophils % Seg Neutrophils # PT 54.5 H INR 5.54 H* POC ABG pH POC ABG pCO2 POC ABG pO2 50 L 185 H Sodium Chloride Carbon Dioxide BUN Glucose Lactic Acid Calcium C-Reactive Protein Total Protein Albumin Urine WBC (Auto) 01/09/18 01/09/18 04:09 10:43 WBC Hct MCV MCHC Plt Count Lymph % (Auto) Lymph # Seg Neutrophils % Seg Neutrophils # PT INR POC ABG pH POC ABG pCO2 POC ABG pO2 112 H Sodium Chloride Carbon Dioxide BUN Glucose Lactic Acid 3.90 H* Calcium C-Reactive Protein Total Protein Albumin Urine WBC (Auto) Chest x-ray: image reviewed (ET in postion, cardiac AICD/PPM, RLL infiltrate) Additional Studies: Patient: PETE VSAQUEZ MR#: [id number] : 1980 Acct:[id number] Age/Sex: 37 / M ADM Date: 01/07/18 Loc: CC1 A259-[address]: GIUSEPPE LANGSTON MD Ordering Physician: MISTY GAMEZ MD Date of Service: 01/08/18 Procedure(s): XR chest 1V ap Accession Number(s): [id number] cc: MISTY GAMEZ MD Fluoro Time In Minutes: Portable chest: Respiratory failure. Comparison is made to the prior exam at 1:47 AM on the same day. Endotracheal, nasogastric, and right jugular central venous lines remain unchanged in good positions. Mild patchy changes identified in the right infrahilar region may be slightly improved. The lungs otherwise appear generally clear. Stable appearing cardiac findings. Impression: Improving right infrahilar infiltrate. Transcribed By: TED Dictated By: YAMILET CAREY MD Electronically Authenticated By: YAMILET CAREY MD Signed Date/Time: 01/08/18 1112 Allied health notes reviewed: RT
--- NOTE | 2018-01-09 12:12 | Progress Note ---
Assessment and Plan Assessment and plan: Acute Encephalopathy. Etiology is secondary to seizures. CT scan of the head is negative Continue IV Keppra and IV fluids Acute hypoxemic respiratory failure. Patient currently requires mechanical ventilatory support. Continue vent weaning per pulmonary. Status Epilepticus Continue IV Keppra. Neurology following. mildly abnormal waking EEG due to intermittent left frontotemporal slowing (opposite side from his encephalomalacia) but no epileptiform activity. SIRS. Patient with leukocytosis on admission. Patient continues to have elevated lactic acid level Diabetes mellitus type 2. Patient has had previous episodes of hyperglycemia on past hospitalizations. Follow-up hemoglobin A1c. Continue sliding scale insulin for now. Diastolic heart failure, compensated. Patient with echocardiogram in October 2015 with EF 50-55%. Continue current medications. Hypertension. Cont Carvedilol and Lisinopril Depression Sertraline Afib Hold Warfarin Coagulopathy. Hold warfarin and maintain INR 2-3 Leukocytosis Empiric Abx coverage DVT prophylaxis Lovenox 40mg sq qd History Interval history: No new events overnight. Hospitalist Physical - Constitutional Vitals: Temp Pulse Resp BP Pulse Ox 98.2 F 70 24 114/55 100 01/09/18 08:00 01/09/18 10:10 01/09/18 10:00 01/09/18 10:10 01/09/18 10:00 General appearance: Present: no acute distress, disheveled - EENT Eyes: Present: PERRL, EOM intact ENT: hearing intact, clear oral mucosa, dentition normal - Neck Neck: Present: supple, normal ROM - Respiratory Respiratory effort: normal Respiratory: bilateral: CTA - Cardiovascular Rhythm: regular Heart Sounds: Present: S1 & S2. Absent: gallop, rub - Extremities Extremities: no ischemia, No edema, Full ROM - Abdominal General gastrointestinal: soft, non-tender, non-distended, normal bowel sounds - Integumentary Integumentary: Present: clear, warm, dry - Neurologic Neurologic: CNII-XII intact, moves all extremities Results - Labs CBC & Chem 7: 01/08/18 04:59 01/08/18 04:59 Labs: Laboratory Last Values WBC 9.6 K/mm3 (4.5-11.0) 01/08/18 04:59 RBC 4.11 M/mm3 (3.65-5.03) 01/08/18 04:59 Hgb 12.3 gm/dl (11.8-15.2) 01/08/18 04:59 Hct 36.4 % (35.5-45.6) D 01/08/18 04:59 MCV 89 fl (84-94) 01/08/18 04:59 MCH 30 pg (28-32) 01/08/18 04:59 MCHC 34 % (32-34) 01/08/18 04:59 RDW 14.5 % (13.2-15.2) 01/08/18 04:59 Plt Count 139 K/mm3 (140-440) L 01/08/18 04:59 Lymph % (Auto) 7.0 % (13.4-35.0) L 01/08/18 04:59 [place] % (Auto) 5.0 % (0.0-7.3) 01/08/18 04:59 Eos % (Auto) 0.1 % (0.0-4.3) 01/08/18 04:59 Baso % (Auto) 0.2 % (0.0-1.8) 01/08/18 04:59 Lymph # 0.7 K/mm3 (1.2-5.4) L 01/08/18 04:59 [place] # 0.5 K/mm3 (0.0-0.8) 01/08/18 04:59 Eos # 0.0 K/mm3 (0.0-0.4) 01/08/18 04:59 Baso # 0.0 K/mm3 (0.0-0.1) 01/08/18 04:59 Add Manual Diff Complete 01/08/18 04:59 Seg Neutrophils % 87.7 % (40.0-70.0) H 01/08/18 04:59 Seg Neutrophils # 8.4 K/mm3 (1.8-7.7) H 01/08/18 04:59 PT 54.5 Sec. (12.2-14.9) H 01/09/18 04:09 INR 5.54 (0.87-1.13) H* 01/09/18 04:09 POC ABG pH 7.433 (7.35-7.45) 01/09/18 10:43 POC ABG pCO2 41.7 (35-45) 01/09/18 10:43 POC ABG pO2 112 (80-105) H 01/09/18 10:43 POC ABG HCO3 27.9 01/09/18 10:43 POC ABG Total CO2 29 01/09/18 10:43 POC ABG O2 Sat 99 01/09/18 10:43 POC ABG Base Excess 4 01/09/18 10:43 FiO2 30 % 01/09/18 10:43 Sodium 135 mmol/L (137-145) L 01/08/18 04:59 Potassium 4.0 mmol/L (3.6-5.0) 01/08/18 04:59 Chloride 103.1 mmol/L (98-107) 01/08/18 04:59 Carbon Dioxide 14 mmol/L (22-30) L 01/08/18 04:59 Anion Gap 22 mmol/L 01/08/18 04:59 BUN 8 mg/dL (9-20) L 01/08/18 04:59 Creatinine 0.8 mg/dL (0.8-1.5) 01/08/18 04:59 Estimated GFR > 60 ml/min 01/08/18 04:59 BUN/Creatinine Ratio 10 % 01/08/18 04:59 Glucose 186 mg/dL (75-100) H 01/08/18 04:59 Hemoglobin A1c 5.9 % (4-6) 01/08/18 00:09 Lactic Acid 3.90 mmol/L (0.7-2.0) H* 01/09/18 04:09 Calcium 7.8 mg/dL (8.4-10.2) L D 01/08/18 04:59 Total Bilirubin 0.30 mg/dL (0.1-1.2) 01/08/18 04:59 AST 31 units/L (5-40) 01/08/18 04:59 ALT 19 units/L (7-56) 01/08/18 04:59 Alkaline Phosphatase 77 units/L (35-129) 01/08/18 04:59 Troponin T < 0.010 ng/mL (0.00-0.029) 01/07/18 21:11 C-Reactive Protein 6.40 mg/dL (0.00-1.30) H 01/08/18 13:34 Total Protein 5.8 g/dL (6.3-8.2) L D 01/08/18 04:59 Albumin 3.0 g/dL (3.9-5) L 01/08/18 04:59 Albumin/Globulin Ratio 1.1 % 01/08/18 04:59 Urine Color Yellow (Yellow) 01/09/18 01:45 Urine Turbidity Hazy (Clear) 01/09/18 01:45 Urine pH 6.0 (5.0-7.0) 01/09/18 01:45 Ur Specific [place] 1.007 (1.003-1.030) 01/09/18 01:45 Urine Protein <15 mg/dl mg/dL (Negative) 01/09/18 01:45 Urine Glucose (UA) >=500 mg/dL (Negative) 01/09/18 01:45 Urine Ketones Neg mg/dL (Negative) 01/09/18 01:45 Urine Blood Neg (Negative) 01/09/18 01:45 Urine Nitrite Neg (Negative) 01/09/18 01:45 Urine Bilirubin Neg (Negative) 01/09/18 01:45 Urine Urobilinogen < 2.0 mg/dL (<2.0) 01/09/18 01:45 Ur Leukocyte Esterase Lg (Negative) 01/09/18 01:45 Urine WBC (Auto) 8.0 /HPF (0.0-6.0) H 01/09/18 01:45 Urine RBC (Auto) < 1.0 /HPF (0.0-6.0) 01/09/18 01:45 U Epithel Cells (Auto) < 1.0 /HPF (0-13.0) 01/09/18 01:45 Urine Bacteria (Auto) 1+ /HPF (Negative) 01/09/18 01:45 Urine Mucus Few /HPF 01/09/18 01:45 Urine Opiates Screen Presumptive negative 01/08/18 04:56 Urine Methadone Screen Presumptive negative 01/08/18 04:56 Ur Barbiturates Screen Presumptive negative 01/08/18 04:56 Carbamazepine 4.8 ug/mL (4-12) 01/07/18 20:04 Ur Phencyclidine Scrn Presumptive negative 01/08/18 04:56 Ur Amphetamines Screen Presumptive negative 01/08/18 04:56 U Benzodiazepines Scrn Presumptive negative 01/08/18 04:56 Urine Cocaine Screen Presumptive negative 06/29/18 04:56 U Marijuana (THC) Screen Presumptive negative 01/08/18 04:56 Drugs of Abuse Note Disclamer 01/08/18 04:56 Plasma/Serum Alcohol < 0.01 % (0-0.07) 01/07/18 20:04
[2018-01-09] MEDS: VANCOMYCIN/NS 1 GM/250 ML 1 GM/250 ML BAG IV SCH ×2 (15:02→23:15)
[2018-01-10] MEDS: DUONEB *Not for PRN Use IH SCH ×5 (01:18→21:42)
[2018-01-10] MEDS: KEPPRA 500 MG in NACL 0.9% 100 ML IV SCH ×4 (03:57→22:04)
[2018-01-10] MEDS: MAXIPIME/NS 2 GM/100 ML 2 GM/100 ML BAG IV SCH ×3 (05:32→22:05)
[2018-01-10] MEDS: VANCOMYCIN/NS 1 GM/250 ML 1 GM/250 ML BAG IV SCH ×3 (05:32→22:05)
[2018-01-10 06:12] LABS: INR 3.62 (0.87-1.13)
[2018-01-10] MEDS: PEPCID PO SCH (10:13)
[2018-01-10] MEDS: BABY ASPIRIN PO SCH (10:13)
[2018-01-10] MEDS: ZOLOFT PO SCH (10:13)
[2018-01-10] MEDS: MORPHINE IV PRN (10:14)
[2018-01-10] MEDS: COREG PO SCH ×2 (10:15→22:04)
[2018-01-10] MEDS: SODIUM CHLORIDE FLUSH SYRINGE 10 ML IV SCH ×2 (10:15→22:00)
[2018-01-10] MEDS: ZESTRIL PO SCH (10:16)
--- NOTE | 2018-01-10 12:06 | Progress Note ---
Assessment and Plan Assessment and plan: Acute Encephalopathy. Etiology is secondary to seizures. CT scan of the head is negative Continue IV Keppra and IV fluids Acute hypoxemic respiratory failure. Patient extubated on 01/09/18. Continue O2 to maintain sats greater than 92%. Status Epilepticus Continue IV Keppra. Neurology following. Mildly abnormal waking EEG due to intermittent left frontotemporal slowing (opposite side from his encephalomalacia) but no epileptiform activity. SIRS. Patient with leukocytosis on admission. Patient continues to have elevated lactic acid level Diabetes mellitus type 2. Patient has had previous episodes of hyperglycemia on past hospitalizations. Follow-up hemoglobin A1c. Continue sliding scale insulin for now. Diastolic heart failure, compensated. Patient with echocardiogram in October 2015 with EF 50-55%. Continue current medications. Follow-up repeat echocardiogram to evaluate LVEF, pulmonary HTN and for congenital heart abnormalities. Cardiology consultation Hypertension. Cont Carvedilol and Lisinopril Depression Sertraline Afib Hold Warfarin Coagulopathy. Hold warfarin and maintain INR 2-3 Leukocytosis Empiric Abx coverage DVT prophylaxis Lovenox 40mg sq qd History Interval history: No new events overnight. Patient was extubated yesterday and is doing well. Hospitalist Physical - Constitutional Vitals: Temp Pulse Resp BP Pulse Ox 98.6 F 70 24 106/50 94 01/10/18 08:00 01/10/18 11:00 01/10/18 11:00 01/10/18 11:00 01/10/18 11:00 General appearance: Present: no acute distress, disheveled - EENT Eyes: Present: PERRL, EOM intact ENT: hearing intact, clear oral mucosa, dentition normal - Neck Neck: Present: supple, normal ROM - Respiratory Respiratory effort: normal Respiratory: bilateral: CTA - Cardiovascular Rhythm: regular Heart Sounds: Present: S1 & S2. Absent: gallop, rub - Extremities Extremities: no ischemia, No edema, Full ROM - Abdominal General gastrointestinal: soft, non-tender, non-distended, normal bowel sounds - Integumentary Integumentary: Present: clear, warm, dry - Neurologic Neurologic: CNII-XII intact, moves all extremities Results - Labs CBC & Chem 7: 01/08/18 04:59 01/08/18 04:59 Labs: Laboratory Last Values WBC 9.6 K/mm3 (4.5-11.0) 01/08/18 04:59 RBC 4.11 M/mm3 (3.65-5.03) 01/08/18 04:59 Hgb 12.3 gm/dl (11.8-15.2) 01/08/18 04:59 Hct 36.4 % (35.5-45.6) D 01/08/18 04:59 MCV 89 fl (84-94) 01/08/18 04:59 MCH 30 pg (28-32) 01/08/18 04:59 MCHC 34 % (32-34) 01/08/18 04:59 RDW 14.5 % (13.2-15.2) 01/08/18 04:59 Plt Count 139 K/mm3 (140-440) L 01/08/18 04:59 Lymph % (Auto) 7.0 % (13.4-35.0) L 01/08/18 04:59 [place] % (Auto) 5.0 % (0.0-7.3) 01/08/18 04:59 Eos % (Auto) 0.1 % (0.0-4.3) 01/08/18 04:59 Baso % (Auto) 0.2 % (0.0-1.8) 01/08/18 04:59 Lymph # 0.7 K/mm3 (1.2-5.4) L 01/08/18 04:59 [place] # 0.5 K/mm3 (0.0-0.8) 01/08/18 04:59 Eos # 0.0 K/mm3 (0.0-0.4) 01/08/18 04:59 Baso # 0.0 K/mm3 (0.0-0.1) 01/08/18 04:59 Add Manual Diff Complete 01/08/18 04:59 Seg Neutrophils % 87.7 % (40.0-70.0) H 01/08/18 04:59 Seg Neutrophils # 8.4 K/mm3 (1.8-7.7) H 01/08/18 04:59 PT 38.7 Sec. (12.2-14.9) H 01/10/18 05:00 INR 3.62 (0.87-1.13) H 01/10/18 05:00 POC ABG pH 7.433 (7.35-7.45) 01/09/18 10:43 POC ABG pCO2 41.7 (35-45) 01/09/18 10:43 POC ABG pO2 112 (80-105) H 01/09/18 10:43 POC ABG HCO3 27.9 01/09/18 10:43 POC ABG Total CO2 29 01/09/18 10:43 POC ABG O2 Sat 99 01/09/18 10:43 POC ABG Base Excess 4 01/09/18 10:43 FiO2 30 % 01/09/18 10:43 Sodium 135 mmol/L (137-145) L 01/08/18 04:59 Potassium 4.0 mmol/L (3.6-5.0) 01/08/18 04:59 Chloride 103.1 mmol/L (98-107) 01/08/18 04:59 Carbon Dioxide 14 mmol/L (22-30) L 01/08/18 04:59 Anion Gap 22 mmol/L 01/08/18 04:59 BUN 8 mg/dL (9-20) L 01/08/18 04:59 Creatinine 0.8 mg/dL (0.8-1.5) 01/08/18 04:59 Estimated GFR > 60 ml/min 01/08/18 04:59 BUN/Creatinine Ratio 10 % 01/08/18 04:59 Glucose 186 mg/dL (75-100) H 01/08/18 04:59 Hemoglobin A1c 5.9 % (4-6) 01/08/18 00:09 Lactic Acid 1.10 mmol/L (0.7-2.0) 01/09/18 15:10 Calcium 7.8 mg/dL (8.4-10.2) L D 01/08/18 04:59 Total Bilirubin 0.30 mg/dL (0.1-1.2) 01/08/18 04:59 AST 31 units/L (5-40) 01/08/18 04:59 ALT 19 units/L (7-56) 01/08/18 04:59 Alkaline Phosphatase 77 units/L (35-129) 01/08/18 04:59 Troponin T < 0.010 ng/mL (0.00-0.029) 01/07/18 21:11 C-Reactive Protein 9.70 mg/dL (0.00-1.30) H 01/09/18 19:20 Total Protein 5.8 g/dL (6.3-8.2) L D 01/08/18 04:59 Albumin 3.0 g/dL (3.9-5) L 01/08/18 04:59 Albumin/Globulin Ratio 1.1 % 01/08/18 04:59 Urine Color Yellow (Yellow) 01/09/18 01:45 Urine Turbidity Hazy (Clear) 01/09/18 01:45 Urine pH 6.0 (5.0-7.0) 01/09/18 01:45 Ur Specific [place] 1.007 (1.003-1.030) 01/09/18 01:45 Urine Protein <15 mg/dl mg/dL (Negative) 01/09/18 01:45 Urine Glucose (UA) >=500 mg/dL (Negative) 01/09/18 01:45 Urine Ketones Neg mg/dL (Negative) 01/09/18 01:45 Urine Blood Neg (Negative) 01/09/18 01:45 Urine Nitrite Neg (Negative) 01/09/18 01:45 Urine Bilirubin Neg (Negative) 01/09/18 01:45 Urine Urobilinogen < 2.0 mg/dL (<2.0) 01/09/18 01:45 Ur Leukocyte Esterase Lg (Negative) 01/09/18 01:45 Urine WBC (Auto) 8.0 /HPF (0.0-6.0) H 01/09/18 01:45 Urine RBC (Auto) < 1.0 /HPF (0.0-6.0) 01/09/18 01:45 U Epithel Cells (Auto) < 1.0 /HPF (0-13.0) 01/09/18 01:45 Urine Bacteria (Auto) 1+ /HPF (Negative) 01/09/18 01:45 Urine Mucus Few /HPF 01/09/18 01:45 Urine Opiates Screen Presumptive negative 01/08/18 04:56 Urine Methadone Screen Presumptive negative 01/08/18 04:56 Ur Barbiturates Screen Presumptive negative 01/08/18 04:56 Carbamazepine 4.8 ug/mL (4-12) 01/07/18 20:04 Ur Phencyclidine Scrn Presumptive negative 01/08/18 04:56 Ur Amphetamines Screen Presumptive negative 01/08/18 04:56 U Benzodiazepines Scrn Presumptive negative 01/08/18 04:56 Urine Cocaine Screen Presumptive negative 01/08/18 04:56 U Marijuana (THC) Screen Presumptive negative 01/08/18 04:56 Drugs of Abuse Note Disclamer 01/08/18 04:56 Plasma/Serum Alcohol < 0.01 % (0-0.07) 01/07/18 20:04
[2018-01-10] MEDS: TYLENOL PO PRN (18:48)
--- NOTE | 2018-01-10 21:16 | Progress Note ---
Assessment and Plan Patient alert, awake. Resting on room air. O2 saturation 95%. Having some non productive cough.No acute respiratory distress. - Patient Problems (1) Respiratory failure Current Visit: Yes Status: Acute Plan to address problem: S/P Extubation and presently on room air, O2 saturation 95% No acute respiratory distress. Albuterol/atrovent aerosol treatments q 6 hours. (2) Metabolic encephalopathy Current Visit: Yes Status: Acute Plan to address problem: Patient alert, awake. Following commands at this time. (3) Status epilepticus Current Visit: Yes Status: Acute Plan to address problem: Management as per primary care and neurology. (4) Acute CHF Current Visit: No Status: Acute Plan to address problem: Management as per primary care and cardiology. (5) Acute bronchitis Current Visit: No Status: Acute Plan to address problem: Patient has non productive. Patient is on Cefepime and vancomycin for sepsis. (6) Sepsis Current Visit: No Status: Acute Plan to address problem: Patient is on cefepime and vancomycin. Subjective Date of service: 01/10/18 Principal diagnosis: Hpoxic respiratory failure, status epilepticus Interval history: Patient alert, awake. Resting on room air. O2 saturation 95%. Having some non productive cough.No acute respiratory distress. Objective Vital Signs - 12hr 01/10/18 01/10/18 01/10/18 09:15 09:30 09:34 Temperature Pulse Rate 70 70 Pulse Rate [ Anterior Bilateral Throughout] Pulse Rate [ From Monitor] Respiratory 22 23 Rate Respiratory Rate [Anterior Bilateral Throughout] Blood Pressure 115/58 115/55 O2 Sat by Pulse 100 100 100 Oximetry 01/10/18 01/10/18 01/10/18 09:40 09:45 09:50 Temperature Pulse Rate 70 Pulse Rate [ 70 70 Anterior Bilateral Throughout] Pulse Rate [ From Monitor] Respiratory 23 Rate Respiratory 20 20 Rate [Anterior Bilateral Throughout] Blood Pressure 117/56 O2 Sat by Pulse 99 Oximetry 01/10/18 01/10/18 01/10/18 10:00 10:15 10:16 Temperature Pulse Rate 69 69 70 Pulse Rate [ Anterior Bilateral Throughout] Pulse Rate [ 70 From Monitor] Respiratory 24 24 Rate Respiratory Rate [Anterior Bilateral Throughout] Blood Pressure 117/58 117/56 119/51 O2 Sat by Pulse 100 100 96 Oximetry 07/01/18 07/01/18 07/01/18 10:30 10:46 11:00 Temperature Pulse Rate 75 70 70 Pulse Rate [ Anterior Bilateral Throughout] Pulse Rate [ From Monitor] Respiratory 22 24 24 Rate Respiratory Rate [Anterior Bilateral Throughout] Blood Pressure 116/59 106/50 106/50 O2 Sat by Pulse 97 95 94 Oximetry 01/10/18 01/10/18 01/10/18 11:15 11:30 11:45 Temperature Pulse Rate 70 70 70 Pulse Rate [ Anterior Bilateral Throughout] Pulse Rate [ From Monitor] Respiratory 23 23 23 Rate Respiratory Rate [Anterior Bilateral Throughout] Blood Pressure 103/48 99/46 103/48 O2 Sat by Pulse 96 94 94 Oximetry 01/10/18 01/10/18 01/10/18 12:00 12:15 12:30 Temperature 98.0 F Pulse Rate 71 70 70 Pulse Rate [ Anterior Bilateral Throughout] Pulse Rate [ From Monitor] Respiratory 20 22 22 Rate Respiratory Rate [Anterior Bilateral Throughout] Blood Pressure 102/53 105/52 105/52 O2 Sat by Pulse 94 96 94 Oximetry 01/10/18 01/10/18 01/10/18 12:46 13:00 13:15 Temperature Pulse Rate 70 70 70 Pulse Rate [ Anterior Bilateral Throughout] Pulse Rate [ From Monitor] Respiratory 20 23 21 Rate Respiratory Rate [Anterior Bilateral Throughout] Blood Pressure 124/64 118/59 O2 Sat by Pulse 98 100 Oximetry 01/10/18 01/10/18 01/10/18 13:31 14:22 14:32 Temperature Pulse Rate Pulse Rate [ 70 72 Anterior Bilateral Throughout] Pulse Rate [ From Monitor] Respiratory Rate Respiratory 18 18 Rate [Anterior Bilateral Throughout] Blood Pressure 125/62 O2 Sat by Pulse Oximetry 01/10/18 01/10/18 15:41 18:48 Temperature 98.7 F Pulse Rate 70 Pulse Rate [ Anterior Bilateral Throughout] Pulse Rate [ From Monitor] Respiratory 20 20 Rate Respiratory Rate [Anterior Bilateral Throughout] Blood Pressure 118/54 O2 Sat by Pulse 99 Oximetry Constitutional: no acute distress, alert, other (orally intubated to MVS, OGT in place) Eyes: non-icteric ENT: oropharynx moist Neck: supple, no lymphadenopathy, no JVD, other (Right IJ CVC) Effort: normal Ascultation: Bilateral: diminished breath sounds, rhonchi Cardiovascular: murmur noted, other (paced, S1,S2, systolic murmur) Gastrointestinal: normoactive bowel sounds, soft, non-tender, non-distended, other (no hepatosplenomegally) Integumentary: normal Extremities: no cyanosis, no edema, pink and warm, pulses normal, other (upper extremity digital clubbing) Neurologic: normal mental status, non-focal exam, pupils equal and round Psychiatric: mood appropriate, affect normal CBC and BMP: 01/08/18 04:59 01/08/18 04:59 ABG, PT/INR, D-dimer: ABG POC ABG pH 7.433 (7.35-7.45) 01/09/18 10:43 POC ABG pCO2 41.7 (35-45) 01/09/18 10:43 POC ABG pO2 112 (80-105) H 01/09/18 10:43 POC ABG HCO3 27.9 01/09/18 10:43 POC ABG Total CO2 29 01/09/18 10:43 POC ABG O2 Sat 99 01/09/18 10:43 PT/INR, D-dimer PT 38.7 Sec. (12.2-14.9) H 01/10/18 05:00 INR 3.62 (0.87-1.13) H 01/10/18 05:00 Abnormal lab findings: Abnormal Labs 01/07/18 01/07/18 01/07/18 20:04 20:04 20:06 WBC 12.2 H Hct 47.2 H MCV 95 H MCHC 31 L Plt Count Lymph % (Auto) Lymph # Seg Neutrophils % Seg Neutrophils # PT INR POC ABG pH 6.761 L POC ABG pCO2 54.0 H POC ABG pO2 208 H Sodium Chloride 92.3 L Carbon Dioxide 10 L BUN Glucose 189 H Lactic Acid Calcium C-Reactive Protein Total Protein 8.3 H Albumin Urine WBC (Auto) 01/07/18 01/07/18 01/08/18 21:11 21:46 04:21 WBC Hct MCV MCHC Plt Count Lymph % (Auto) Lymph # Seg Neutrophils % Seg Neutrophils # PT INR POC ABG pH 7.067 L 7.479 H POC ABG pCO2 28.3 L POC ABG pO2 196 H 160 H Sodium Chloride Carbon Dioxide BUN Glucose Lactic Acid < 0.20 L Calcium C-Reactive Protein Total Protein Albumin Urine WBC (Auto) 01/08/18 01/08/18 01/08/18 04:59 04:59 07:41 WBC Hct MCV MCHC Plt Count 139 L Lymph % (Auto) 7.0 L Lymph # 0.7 L Seg Neutrophils % 87.7 H Seg Neutrophils # 8.4 H PT 49.1 H INR 4.87 H POC ABG pH POC ABG pCO2 POC ABG pO2 Sodium 135 L Chloride Carbon Dioxide 14 L BUN 8 L Glucose 186 H Lactic Acid Calcium 7.8 L D C-Reactive Protein Total Protein 5.8 L D Albumin 3.0 L Urine WBC (Auto) 01/08/18 01/09/18 01/09/18 13:34 01:09 01:45 WBC Hct MCV MCHC Plt Count Lymph % (Auto) Lymph # Seg Neutrophils % Seg Neutrophils # PT INR POC ABG pH POC ABG pCO2 POC ABG pO2 Sodium Chloride Carbon Dioxide BUN Glucose Lactic Acid 2.10 H* Calcium C-Reactive Protein 6.40 H Total Protein Albumin Urine WBC (Auto) 8.0 H 01/09/18 01/09/18 01/09/18 03:56 04:05 04:09 WBC Hct MCV MCHC Plt Count Lymph % (Auto) Lymph # Seg Neutrophils % Seg Neutrophils # PT 54.5 H INR 5.54 H* POC ABG pH POC ABG pCO2 POC ABG pO2 50 L 185 H Sodium Chloride Carbon Dioxide BUN Glucose Lactic Acid Calcium C-Reactive Protein Total Protein Albumin Urine WBC (Auto) 01/09/18 01/09/18 01/09/18 04:09 10:43 19:20 WBC Hct MCV MCHC Plt Count Lymph % (Auto) Lymph # Seg Neutrophils % Seg Neutrophils # PT INR POC ABG pH POC ABG pCO2 POC ABG pO2 112 H Sodium Chloride Carbon Dioxide BUN Glucose Lactic Acid 3.90 H* Calcium C-Reactive Protein 9.70 H Total Protein Albumin Urine WBC (Auto) 01/10/18 05:00 WBC Hct MCV MCHC Plt Count Lymph % (Auto) Lymph # Seg Neutrophils % Seg Neutrophils # PT 38.7 H INR 3.62 H POC ABG pH POC ABG pCO2 POC ABG pO2 Sodium Chloride Carbon Dioxide BUN Glucose Lactic Acid Calcium C-Reactive Protein Total Protein Albumin Urine WBC (Auto) Chest x-ray: report reviewed (Heart is enlarged. Pacemaker leads in place.), image reviewed Allied health notes reviewed: RT
[2018-01-11] MEDS: DUONEB *Not for PRN Use IH SCH ×4 (01:26→20:08)
[2018-01-11] MEDS: KEPPRA 500 MG in NACL 0.9% 100 ML IV SCH (04:51)
[2018-01-11] MEDS: MORPHINE IV PRN (04:52)
[2018-01-11] MEDS: VANCOMYCIN/NS 1 GM/250 ML 1 GM/250 ML BAG IV SCH ×3 (06:09→22:43)
[2018-01-11 06:45] LABS: Basophils % (Auto) 0.4 % (0.0-1.8); Eosinophils # (Auto) 0.2 K/mm3 (0.0-0.4); Eosinophils % (Auto) 3.8 % (0.0-4.3); Hematocrit 28.7 % (35.5-45.6); Hemoglobin 9.7 gm/dl (11.8-15.2); Lymphocytes # (Auto) 0.6 K/mm3 (1.2-5.4); Lymphocytes % (Auto) 11.6 % (13.4-35.0); Mean Corpuscular HGB Conc 34 % (32-34); Mean Corpuscular Hemoglobin 30 pg (28-32); Mean Corpuscular Volume 88 fl (84-94); Monocytes # (Auto) 0.3 K/mm3 (0.0-0.8); Monocytes % (Auto) 5.3 % (0.0-7.3); Platelet Count 124 K/mm3 (140-440); Red Blood Count 3.27 M/mm3 (3.65-5.03); Red Cell Distribution Width 14.5 % (13.2-15.2)
[2018-01-11 06:58] LABS: INR 3.11 (0.87-1.13)
[2018-01-11 07:10] LABS: BUN/Creatinine Ratio 7; Blood Urea Nitrogen 5 mg/dL (9-20); Calcium 8.2 mg/dL (8.4-10.2); Hemolysis Index 4
--- NOTE | 2018-01-11 08:35 | XRay Report ---
AP CHEST: HISTORY: Follow up respiratory failure The patient has been extubated since 01/09/18. The nasogastric tube has been removed. The right IJ venous catheter remains in adequate position. Cardiomegaly and pulmonary venous congestion are stable. There is better aeration of the left lower lobe since the previous exam consistent with decreased infiltrate or atelectasis. Otherwise, the lungs are generally clear. Pacemaker device is unchanged. IMPRESSION: Extubation. Stable mild cardiomegaly and pulmonary venous congestion. Decreased infiltrate or atelectasis in the left lower lobe.
--- NOTE | 2018-01-11 09:20 | Consultation ---
History of Present Illness Consult date: 01/11/18 Consult reason: atrial fibrillation History of present illness: This is a 37 year old man who was admitted 01/07 with recurrent seizures. A cardiac consultation was requested for atrial fibrillation and CHF. Patient has a known history of nonischemic cardiomyopathy and indwelling cardiac defibrillator. He also has a history of paroxysmal atrial flutter and fibrillation and is on warfarin for oral anticoagulation. His presenting labs shows a supra therapeutic INR of 4.87 for which warfarin has been placed on hold. 12 lead ECG is a ventricular paced rhythm with underlying atrial fibrillation. Medications and Allergies Allergies Allergy/AdvReac Type Severity Reaction Status Date / Time No Known Allergies Allergy Verified 05/28/16 14:33 Home Medications Medication Instructions Recorded Confirmed Last Taken Type Aspirin [Aspirin BABY CHEW TAB] 81 mg PO QDAY 09/13/16 10/13/17 Unknown History Famotidine [Pepcid] 1 tab PO DAILY #30 tablet 09/17/16 10/13/17 Unknown Rx carBAMazepine [TEGretol] 100 mg PO BID #60 tab.chew 09/17/16 10/13/17 Unknown Rx levETIRAcetam [Keppra TAB] 750 mg PO BID #60 tablet 09/17/16 10/13/17 Unknown Rx Carvedilol [Coreg] 3.125 mg PO BID 10/13/17 10/13/17 Unknown History Lisinopril [Prinivil] 10 mg PO DAILY 10/13/17 10/13/17 Unknown History Sertraline [Zoloft] 25 mg PO QDAY 10/13/17 10/13/17 Unknown History Warfarin [Coumadin] 7.5 mg PO DAILY 10/13/17 10/13/17 Unknown History Active Meds: Active Medications Acetaminophen (Tylenol) 650 mg PO Q4H PRN PRN Reason: Pain MILD(1-3)/Fever >100.5/[place] Last Admin: 01/10/18 18:48 Dose: 650 mg Albuterol/Ipratropium (Duoneb *Not For Prn Use*) 1 ampul IH Q6HRT [facility] Last Admin: 01/11/18 07:48 Dose: 1 ampul Lipase/Protease/Amylase (Pancreaze Dr 10,500 Unit) 1 each FEEDTUBE PRN PRN PRN Reason: For Clogged Feeding Tube Aspirin (Baby Aspirin) 81 mg PO QDAY [facility] Last Admin: 01/10/18 10:13 Dose: 81 mg Carbamazepine (Tegretol) 200 mg FEEDTUBE QID [facility] Last Admin: 01/10/18 22:04 Dose: 200 mg Carvedilol (Coreg) 3.125 mg PO BID [facility] Last Admin: 01/10/18 22:04 Dose: 3.125 mg Famotidine (Pepcid) 20 mg PO DAILY [facility] Last Admin: 01/10/18 10:13 Dose: 20 mg Hydrophilic Ointment (Vaseline Lip Therapy) 1 applic TP Q2HR PRN PRN Reason: Dry Lips Sodium Chloride (Nacl 0.9% 1000 Ml) 1,000 mls @ 100 mls/hr IV DIRECT [facility] Cefepime HCl (Maxipime/Ns 2 Gm/100 Ml) 2 gm in 100 mls @ 200 mls/hr IV Q8HR [facility] ; Protocol Last Admin: 01/10/18 22:05 Dose: 200 mls/hr Vancomycin HCl (Vancomycin/Ns 1 Gm/250 Ml) 1 gm in 250 mls @ 166.667 mls/hr IV Q8HR [facility] Last Admin: 01/11/18 06:09 Dose: 166.667 mls/hr Levetiracetam (Keppra) 500 mg PO Q6HR [facility] Lisinopril (Zestril) 10 mg PO DAILY [facility] Last Admin: 01/10/18 10:16 Dose: Not Given Lorazepam (Ativan) 2 mg IV Q4H PRN PRN Reason: Agitation Morphine Sulfate (Morphine) 2 mg IV Q4H PRN PRN Reason: Pain, Moderate (4-6) Last Admin: 01/11/18 04:52 Dose: 2 mg Multi-Ingred Cream/Lotion/Oil/Oint (Artificial Tears Ophth Oint) 1 applic OU Q4HR PRN PRN Reason: Dry Eye(s) Ondansetron HCl (Zofran) 4 mg IV Q8H PRN PRN Reason: Nausea And Vomiting Sertraline HCl (Zoloft) 25 mg PO QDAY [facility] Last Admin: 01/10/18 10:13 Dose: 25 mg Simple Syrup (Simple Syrup) 15 ml FEEDTUBE PRN PRN PRN Reason: Hypoglycemia Simple Syrup (Simple Syrup) 30 ml FEEDTUBE PRN PRN PRN Reason: Hypoglycemia Sodium Bicarbonate (Sodium Bicarbonate) 325 mg FEEDTUBE PRN PRN PRN Reason: For Clogged Feeding Tube Sodium Chloride (Nacl 0.9% 500 Ml) 1 ml IV DIRECT [facility] Last Admin: 01/08/18 13:58 Dose: 1 ml Sodium Chloride (Sodium Chloride Flush Syringe 10 Ml) 10 ml IV BID [facility] Last Admin: 01/10/18 22:00 Dose: 10 ml Sodium Chloride (Sodium Chloride Flush Syringe 10 Ml) 10 ml IV PRN PRN PRN Reason: LINE FLUSH Last Admin: 01/08/18 22:09 Dose: 10 ml Vancomycin HCl (Vancomycin Pharmacy To Dose) 1 each IV PKCONSULT MANDY; Protocol Warfarin Sodium (Coumadin Pharmacy To Dose) 1 each PO PKCONSULT MANDY Physical Examination Vital Signs BP 114/55 01/07/18 19:46 General appearance: no acute distress HEENT: Positive: PERRL Cardiac: Positive: Other (v paced) Results 01/11/18 06:12 01/11/18 06:12 Coagulation 01/11/18 Range/Units 06:12 PT 34.2 H (12.2-14.9) Sec. INR 3.11 H (0.87-1.13) CBC 01/11/18 Range/Units 06:12 WBC 5.0 (4.5-11.0) K/mm3 RBC 3.27 L (3.65-5.03) M/mm3 Hgb 9.7 L (11.8-15.2) gm/dl Hct 28.7 L (35.5-45.6) % Plt Count 124 L (140-440) K/mm3 Lymph # 0.6 L (1.2-5.4) K/mm3 [place] # 0.3 (0.0-0.8) K/mm3 Eos # 0.2 (0.0-0.4) K/mm3 Baso # 0.0 (0.0-0.1) K/mm3 Comprehensive Metabolic Panel 01/11/18 Range/Units 06:12 Sodium 144 D (137-145) mmol/L Potassium 2.9 L* D (3.6-5.0) mmol/L Chloride 103.1 (98-107) mmol/L Carbon Dioxide 28 D (22-30) mmol/L BUN 5 L (9-20) mg/dL Creatinine 0.7 L (0.8-1.5) mg/dL Glucose 102 H (75-100) mg/dL Calcium 8.2 L (8.4-10.2) mg/dL Assessment and Plan Seizure disorder Paroxysmal Afib/flutter warfarin held d/t supra therapeutic INR. Pharmacy following Non ischemic Cardiomyopathy normal coronaries by [facility] 10/2014 EF 35-40% by echo this admission Single chamber ICD (Medtronic) Prior right MCA/CVA
[2018-01-11] MEDS: SODIUM CHLORIDE FLUSH SYRINGE 10 ML IV SCH ×2 (10:00→22:00)
[2018-01-11] MEDS: BABY ASPIRIN PO SCH (10:07)
[2018-01-11] MEDS: ZESTRIL PO SCH (10:08)
[2018-01-11] MEDS: ZOLOFT PO SCH (10:08)
[2018-01-11] MEDS: PEPCID PO SCH (10:08)
[2018-01-11] MEDS: COREG PO SCH ×2 (10:09→22:42)
[2018-01-11] MEDS: ZOFRAN IV PRN ×2 (10:13→22:49)
--- NOTE | 2018-01-11 10:54 | Progress Note ---
Assessment and Plan Assessment and plan: Sepsis. POA. Manifested buy hypotension, leukocytosis and elevated lactic acid levels. Cont Abx (Vanc and cefepime). Lactate improved Acute Encephalopathy. Resolving. Etiology is secondary to seizures and sepsis. CT scan of the head is negative Continue Keppra Acute hypoxemic respiratory failure. Patient extubated on 01/09/18. Continue O2 to maintain sats greater than 92%. Acute bronchitis. Cont Abx. Status Epilepticus Continue Keppra. Neurology following. Mildly abnormal waking EEG due to intermittent left frontotemporal slowing (opposite side from his encephalomalacia) but no epileptiform activity. Diabetes mellitus type 2. Patient has had previous episodes of hyperglycemia on past hospitalizations. Follow-up hemoglobin A1c. Continue sliding scale insulin for now. Diastolic heart failure, compensated. ECHO reveals EF 35-40%. Moderate global hypokinesis. Cardiology following Non ischemic Cardiomyopathy. As above Moderate pulmonary hypertension Hypokalemia. Replete k Hypertension. Cont Carvedilol and Lisinopril Depression Sertraline Afib Hold Warfarin, pharmacy to dose Coagulopathy. Hold warfarin and maintain INR 2-3 LUE pain. Check Doppler DVT prophylaxis Lovenox 40mg sq qd History Interval history: No new events overnight. Patient was extubated (01/09) and is doing well. Pt. c /o LUE pain Hospitalist Physical - Constitutional Vitals: Temp Pulse Resp BP Pulse Ox 99.3 F 75 20 126/72 93 01/11/18 08:00 01/11/18 10:08 01/11/18 08:00 01/11/18 10:08 01/11/18 08:00 General appearance: Present: no acute distress - EENT Eyes: Present: PERRL, EOM intact ENT: hearing intact, clear oral mucosa, dentition normal - Neck Neck: Present: supple, normal ROM - Respiratory Respiratory effort: normal Respiratory: bilateral: CTA - Cardiovascular Rhythm: regular Heart Sounds: Present: S1 & S2. Absent: gallop, rub - Extremities Extremities: no ischemia, No edema, Full ROM - Abdominal General gastrointestinal: soft, non-tender, non-distended, normal bowel sounds - Integumentary Integumentary: Present: clear, warm, dry - Neurologic Neurologic: CNII-XII intact, moves all extremities Results - Labs CBC & Chem 7: 01/11/18 06:12 01/11/18 06:12 Labs: Laboratory Last Values WBC 5.0 K/mm3 (4.5-11.0) 01/11/18 06:12 RBC 3.27 M/mm3 (3.65-5.03) L 01/11/18 06:12 Hgb 9.7 gm/dl (11.8-15.2) L 01/11/18 06:12 Hct 28.7 % (35.5-45.6) L 01/11/18 06:12 MCV 88 fl (84-94) 01/11/18 06:12 MCH 30 pg (28-32) 01/11/18 06:12 MCHC 34 % (32-34) 01/11/18 06:12 RDW 14.5 % (13.2-15.2) 01/11/18 06:12 Plt Count 124 K/mm3 (140-440) L 01/11/18 06:12 Lymph % (Auto) 11.6 % (13.4-35.0) L 01/11/18 06:12 [place] % (Auto) 5.3 % (0.0-7.3) 01/11/18 06:12 Eos % (Auto) 3.8 % (0.0-4.3) 01/11/18 06:12 Baso % (Auto) 0.4 % (0.0-1.8) 01/11/18 06:12 Lymph # 0.6 K/mm3 (1.2-5.4) L 01/11/18 06:12 [place] # 0.3 K/mm3 (0.0-0.8) 01/11/18 06:12 Eos # 0.2 K/mm3 (0.0-0.4) 01/11/18 06:12 Baso # 0.0 K/mm3 (0.0-0.1) 01/11/18 06:12 Add Manual Diff Complete 01/08/18 04:59 Seg Neutrophils % 78.9 % (40.0-70.0) H 01/11/18 06:12 Seg Neutrophils # 3.9 K/mm3 (1.8-7.7) 01/11/18 06:12 PT 34.2 Sec. (12.2-14.9) H 01/11/18 06:12 INR 3.11 (0.87-1.13) H 01/11/18 06:12 POC ABG pH 7.433 (7.35-7.45) 01/09/18 10:43 POC ABG pCO2 41.7 (35-45) 01/09/18 10:43 POC ABG pO2 112 (80-105) H 01/09/18 10:43 POC ABG HCO3 27.9 01/09/18 10:43 POC ABG Total CO2 29 01/09/18 10:43 POC ABG O2 Sat 99 01/09/18 10:43 POC ABG Base Excess 4 01/09/18 10:43 FiO2 30 % 01/09/18 10:43 Sodium 144 mmol/L (137-145) D 01/11/18 06:12 Potassium 2.9 mmol/L (3.6-5.0) L* D 01/11/18 06:12 Chloride 103.1 mmol/L (98-107) 01/11/18 06:12 Carbon Dioxide 28 mmol/L (22-30) D 01/11/18 06:12 Anion Gap 16 mmol/L 01/11/18 06:12 BUN 5 mg/dL (9-20) L 01/11/18 06:12 Creatinine 0.7 mg/dL (0.8-1.5) L 01/11/18 06:12 Estimated GFR > 60 ml/min 01/11/18 06:12 BUN/Creatinine Ratio 7 % 01/11/18 06:12 Glucose 102 mg/dL (75-100) H 01/11/18 06:12 Hemoglobin A1c 5.9 % (4-6) 01/08/18 00:09 Lactic Acid 1.10 mmol/L (0.7-2.0) 01/09/18 15:10 Calcium 8.2 mg/dL (8.4-10.2) L 01/11/18 06:12 Total Bilirubin 0.30 mg/dL (0.1-1.2) 01/08/18 04:59 AST 31 units/L (5-40) 01/08/18 04:59 ALT 19 units/L (7-56) 01/08/18 04:59 Alkaline Phosphatase 77 units/L (35-129) 01/08/18 04:59 Troponin T < 0.010 ng/mL (0.00-0.029) 01/07/18 21:11 C-Reactive Protein 9.70 mg/dL (0.00-1.30) H 01/09/18 19:20 Total Protein 5.8 g/dL (6.3-8.2) L D 01/08/18 04:59 Albumin 3.0 g/dL (3.9-5) L 01/08/18 04:59 Albumin/Globulin Ratio 1.1 % 01/08/18 04:59 Urine Color Yellow (Yellow) 01/09/18 01:45 Urine Turbidity Hazy (Clear) 01/09/18 01:45 Urine pH 6.0 (5.0-7.0) 01/09/18 01:45 Ur Specific [place] 1.007 (1.003-1.030) 01/09/18 01:45 Urine Protein <15 mg/dl mg/dL (Negative) 01/09/18 01:45 Urine Glucose (UA) >=500 mg/dL (Negative) 01/09/18 01:45 Urine Ketones Neg mg/dL (Negative) 01/09/18 01:45 Urine Blood Neg (Negative) 01/09/18 01:45 Urine Nitrite Neg (Negative) 01/09/18 01:45 Urine Bilirubin Neg (Negative) 01/09/18 01:45 Urine Urobilinogen < 2.0 mg/dL (<2.0) 01/09/18 01:45 Ur Leukocyte Esterase Lg (Negative) 01/09/18 01:45 Urine WBC (Auto) 8.0 /HPF (0.0-6.0) H 01/09/18 01:45 Urine RBC (Auto) < 1.0 /HPF (0.0-6.0) 01/09/18 01:45 U Epithel Cells (Auto) < 1.0 /HPF (0-13.0) 01/09/18 01:45 Urine Bacteria (Auto) 1+ /HPF (Negative) 01/09/18 01:45 Urine Mucus Few /HPF 01/09/18 01:45 Urine Opiates Screen Presumptive negative 01/08/18 04:56 Urine Methadone Screen Presumptive negative 01/08/18 04:56 Ur Barbiturates Screen Presumptive negative 01/08/18 04:56 Carbamazepine 4.8 ug/mL (4-12) 01/07/18 20:04 Ur Phencyclidine Scrn Presumptive negative 01/08/18 04:56 Ur Amphetamines Screen Presumptive negative 01/08/18 04:56 U Benzodiazepines Scrn Presumptive negative 01/08/18 04:56 Urine Cocaine Screen Presumptive negative 01/08/18 04:56 U Marijuana (THC) Screen Presumptive negative 01/08/18 04:56 Drugs of Abuse Note Disclamer 01/08/18 04:56 Plasma/Serum Alcohol < 0.01 % (0-0.07) 01/07/18 20:04
[2018-01-11] MEDS ORDERED: K-DUR PO NR (11:00)
[2018-01-11] MEDS: KEPPRA PO SCH ×3 (13:14→18:18)
--- NOTE | 2018-01-11 13:47 | Progress Note ---
Assessment and Plan Acute hypoxemic respiratory failure, on mechanical ventilatory support. Aspiration pneumonia (right lower lobe, right middle lobe infiltrate) Status epilepticus, resolved. Seizure Disorder History of cardiomyopathy congestive heart failure. Congenital heart disease. Oropharyngeal dysphagia. Leukocytosis Metabolic acidosis. Mild hyponatremia - continue supplemental oxygen and wean to keep sats > 90% - continue aspiration precautions - continue bronchodilators with pulmonary hygiene per RT - continue diuresis for CHF - continue AED's for seizure control - continue GI & VTE prophylaxis - continue empiric AB's - PT/OT to evaluate and treat - continue mobility protocol for pressure ulcer prophylaxis - continue other care per attending / other consultants ... improving .... 35' Subjective Principal diagnosis: Acute Hypoxemic respiratory failure; Aspiration Pneumonia; Seizures Interval history: Patient is seen today for: Acute Hypoxemic respiratory failure; Aspiration Pneumonia; Seizures Seen and examined at bedside; 24hour events reviewed; nursing and respiratory care staff consulted; no adverse overnight events reported to me; denies repeat seizures; resting in bed; on supplemental oxygen; No N/V/F/C Objective Vital Signs - 12hr 01/11/18 01/11/18 01/11/18 04:12 04:56 05:05 Temperature 99.9 F H Pulse Rate 70 75 Pulse Rate [ Anterior Bilateral Throughout] Pulse Rate [ 75 From Monitor] Respiratory 18 Rate Respiratory Rate [Anterior Bilateral Throughout] Blood Pressure 115/61 Blood Pressure [Left] O2 Sat by Pulse 90 Oximetry 01/11/18 01/11/18 01/11/18 07:48 07:58 08:00 Temperature 99.3 F Pulse Rate 75 Pulse Rate [ 75 76 Anterior Bilateral Throughout] Pulse Rate [ From Monitor] Respiratory 20 Rate Respiratory 18 18 Rate [Anterior Bilateral Throughout] Blood Pressure Blood Pressure 126/72 [Left] O2 Sat by Pulse 93 Oximetry 01/11/18 01/11/18 10:00 10:08 Temperature Pulse Rate 75 Pulse Rate [ Anterior Bilateral Throughout] Pulse Rate [ From Monitor] Respiratory Rate Respiratory Rate [Anterior Bilateral Throughout] Blood Pressure 126/72 Blood Pressure [Left] O2 Sat by Pulse 95 Oximetry Constitutional: no acute distress, alert, other (young but chronically ill looking AAM, normocephalic and atraumatic) Eyes: non-icteric ENT: oropharynx moist, other (mallampati 2) Neck: supple, no lymphadenopathy, no JVD, other (Right IJ CVL) Effort: mildly labored Ascultation: Bilateral: diminished breath sounds, rhonchi Percussion: Bilateral: not dull Cardiovascular: regular rate and rhythm, murmur noted, other (paced, S1,S2, systolic murmur) Gastrointestinal: normoactive bowel sounds, soft, non-tender, non-distended, other (no hepatosplenomegally) Integumentary: normal Extremities: no cyanosis, no edema, pulses normal, no ischemia or petechiae, other Neurologic: normal mental status, non-focal exam (grossly), pupils equal and round, other (weak) Psychiatric: mood appropriate, affect normal CBC and BMP: 01/13/18 06:35 01/13/18 06:35 ABG, PT/INR, D-dimer: ABG POC ABG pH 7.433 (7.35-7.45) 01/09/18 10:43 POC ABG pCO2 41.7 (35-45) 01/09/18 10:43 POC ABG pO2 112 (80-105) H 01/09/18 10:43 POC ABG HCO3 27.9 01/09/18 10:43 POC ABG Total CO2 29 01/09/18 10:43 POC ABG O2 Sat 99 01/09/18 10:43 PT/INR, D-dimer PT 34.2 Sec. (12.2-14.9) H 01/11/18 06:12 INR 3.11 (0.87-1.13) H 01/11/18 06:12 Abnormal lab findings: Abnormal Labs 01/07/18 01/07/18 01/07/18 20:04 20:04 20:06 WBC 12.2 H RBC Hgb Hct 47.2 H MCV 95 H MCHC 31 L Plt Count Lymph % (Auto) Lymph # Seg Neutrophils % Seg Neutrophils # PT INR POC ABG pH 6.761 L POC ABG pCO2 54.0 H POC ABG pO2 208 H Sodium Potassium Chloride 92.3 L Carbon Dioxide 10 L BUN Creatinine Glucose 189 H Lactic Acid Calcium C-Reactive Protein Total Protein 8.3 H Albumin Urine WBC (Auto) 01/07/18 01/07/18 01/08/18 21:11 21:46 04:21 WBC RBC Hgb Hct MCV MCHC Plt Count Lymph % (Auto) Lymph # Seg Neutrophils % Seg Neutrophils # PT INR POC ABG pH 7.067 L 7.479 H POC ABG pCO2 28.3 L POC ABG pO2 196 H 160 H Sodium Potassium Chloride Carbon Dioxide BUN Creatinine Glucose Lactic Acid < 0.20 L Calcium C-Reactive Protein Total Protein Albumin Urine WBC (Auto) 01/08/18 01/08/18 01/08/18 04:59 04:59 07:41 WBC RBC Hgb Hct MCV MCHC Plt Count 139 L Lymph % (Auto) 7.0 L Lymph # 0.7 L Seg Neutrophils % 87.7 H Seg Neutrophils # 8.4 H PT 49.1 H INR 4.87 H POC ABG pH POC ABG pCO2 POC ABG pO2 Sodium 135 L Potassium Chloride Carbon Dioxide 14 L BUN 8 L Creatinine Glucose 186 H Lactic Acid Calcium 7.8 L D C-Reactive Protein Total Protein 5.8 L D Albumin 3.0 L Urine WBC (Auto) 01/08/18 01/09/18 01/09/18 13:34 01:09 01:45 WBC RBC Hgb Hct MCV MCHC Plt Count Lymph % (Auto) Lymph # Seg Neutrophils % Seg Neutrophils # PT INR POC ABG pH POC ABG pCO2 POC ABG pO2 Sodium Potassium Chloride Carbon Dioxide BUN Creatinine Glucose Lactic Acid 2.10 H* Calcium C-Reactive Protein 6.40 H Total Protein Albumin Urine WBC (Auto) 8.0 H 01/09/18 01/09/18 01/09/18 04:05 04:09 04:09 WBC RBC Hgb Hct MCV MCHC Plt Count Lymph % (Auto) Lymph # Seg Neutrophils % Seg Neutrophils # PT 54.5 H INR 5.54 H* POC ABG pH POC ABG pCO2 POC ABG pO2 185 H Sodium Potassium Chloride Carbon Dioxide BUN Creatinine Glucose Lactic Acid 3.90 H* Calcium C-Reactive Protein Total Protein Albumin Urine WBC (Auto) 01/09/18 01/09/18 01/10/18 10:43 19:20 05:00 WBC RBC Hgb Hct MCV MCHC Plt Count Lymph % (Auto) Lymph # Seg Neutrophils % Seg Neutrophils # PT 38.7 H INR 3.62 H POC ABG pH POC ABG pCO2 POC ABG pO2 112 H Sodium Potassium Chloride Carbon Dioxide BUN Creatinine Glucose Lactic Acid Calcium C-Reactive Protein 9.70 H Total Protein Albumin Urine WBC (Auto) 01/11/18 01/11/18 01/11/18 06:12 06:12 06:12 WBC RBC 3.27 L Hgb 9.7 L Hct 28.7 L MCV MCHC Plt Count 124 L Lymph % (Auto) 11.6 L Lymph # 0.6 L Seg Neutrophils % 78.9 H Seg Neutrophils # PT 34.2 H INR 3.11 H POC ABG pH POC ABG pCO2 POC ABG pO2 Sodium Potassium 2.9 L* D Chloride Carbon Dioxide BUN 5 L Creatinine 0.7 L Glucose 102 H Lactic Acid Calcium 8.2 L C-Reactive Protein Total Protein Albumin Urine WBC (Auto) Chest x-ray: image reviewed (improving pulmonary edema) Allied health notes reviewed: nursing
[2018-01-11] MEDS: LASIX IV SCH (15:25)
[2018-01-11] MEDS: MAXIPIME/NS 2 GM/100 ML 2 GM/100 ML BAG IV SCH ×3 (16:01→22:00)
[2018-01-12] MEDS: DUONEB *Not for PRN Use IH SCH ×4 (02:08→21:13)
[2018-01-12] MEDS: VANCOMYCIN/NS 1 GM/250 ML 1 GM/250 ML BAG IV SCH (06:35)
[2018-01-12] MEDS: KEPPRA PO SCH ×3 (06:35→12:56)
[2018-01-12] MEDS: MAXIPIME/NS 2 GM/100 ML 2 GM/100 ML BAG IV SCH ×3 (06:35→22:00)
[2018-01-12 08:18] LABS: Basophils % (Auto) 0.6 % (0.0-1.8); Eosinophils # (Auto) 0.3 K/mm3 (0.0-0.4); Eosinophils % (Auto) 6.8 % (0.0-4.3); Hematocrit 30.3 % (35.5-45.6); Hemoglobin 10.2 gm/dl (11.8-15.2); Lymphocytes # (Auto) 0.9 K/mm3 (1.2-5.4); Lymphocytes % (Auto) 17.9 % (13.4-35.0); Mean Corpuscular HGB Conc 34 % (32-34); Mean Corpuscular Hemoglobin 30 pg (28-32); Mean Corpuscular Volume 89 fl (84-94); Monocytes # (Auto) 0.5 K/mm3 (0.0-0.8); Monocytes % (Auto) 9.5 % (0.0-7.3); Platelet Count 146 K/mm3 (140-440); Red Blood Count 3.42 M/mm3 (3.65-5.03); Red Cell Distribution Width 14.6 % (13.2-15.2)
[2018-01-12 08:29] LABS: INR 2.04 (0.87-1.13)
--- NOTE | 2018-01-12 08:30 | XRay Report ---
AP CHEST: HISTORY: Followup respiratory failure Lines and support devices are unchanged. Minimal improvement in cardiomegaly and pulmonary venous congestion is demonstrated. There is a persistent vague opacity in the left lower lobe which may represent atelectasis or infiltrate. Otherwise the lungs are clear. No large pleural effusion or pneumothorax. IMPRESSION: Minimal improvement in congestive changes.
[2018-01-12 08:31] LABS: BUN/Creatinine Ratio 8; Blood Urea Nitrogen 5 mg/dL (9-20); Hemolysis Index 6
--- NOTE | 2018-01-12 10:22 | Vascular Lab Report ---
LEFT UPPER EXTREMITY VENOUS DUPLEX: REASON FOR EXAM: Pain and swelling of the left upper extremity COMMENTS ON THE LEFT: Superficial venous thrombosis is seen in the cephalic vein at the antecubital fossa. The remaining veins visualized are freely compressible without evidence of internal echogenicity. Spontaneous and phasic flow is present proximally. COMMENTS ON THE RIGHT: The right side was not studied due to overlying bandages. IMPRESSION: No evidence of acute deep venous thrombosis in the left upper extremity. Acute superficial venous thrombosis of the left cephalic vein at the antecubital fossa.
[2018-01-12] MEDS: LASIX IV SCH (10:23)
[2018-01-12] MEDS: K-DUR PO SCH (10:23)
[2018-01-12] MEDS: BABY ASPIRIN PO SCH (10:25)
[2018-01-12] MEDS: ZESTRIL PO SCH (10:25)
[2018-01-12] MEDS: ZOLOFT PO SCH (10:25)
[2018-01-12] MEDS: PEPCID PO SCH (10:26)
[2018-01-12] MEDS: SODIUM CHLORIDE FLUSH SYRINGE 10 ML IV SCH ×2 (10:27→22:00)
--- NOTE | 2018-01-12 11:16 | Progress Note ---
Assessment and Plan Seizure disorder Decompensated heart failure Acute LUE SVT Paroxysmal Afib/flutter on warfarin therapy. Pharmacy following Non ischemic Cardiomyopathy normal coronaries by [facility] 10/2014 EF 35-40% by echo this admission Single chamber ICD (Medtronic) Prior right MCA/CVA Recommendations: Replace potassium. Continue IV diuretics, afterload reducing agents and beta blockers. We will get ICD interrogation, to determine that no malignant ventricular arrhythmias were associated with his presentation with suspected seizures. Continue oral anticoagulation therapy in this patient will have to be closely monitored, setting off recurrent seizures, since this predisposes him to sudden and unexpected fall and trauma. Subjective Date of service: 01/12/18 Principal diagnosis: Acute Hypoxemic respiratory failure; Aspiration Pneumonia; Seizures Interval history: Patient reports continued abdominal pain with nausea and vomiting. Objective Vital Signs Temp Pulse Pulse Pulse Resp Resp BP 01/12/18 10:25 66 123/66 01/12/18 08:10 70 10 L 123/66 01/12/18 08:00 99.4 F 01/12/18 04:51 98.9 F 74 18 110/49 01/12/18 03:47 72 01/12/18 03:31 70 01/12/18 02:25 84 18 01/12/18 02:10 82 18 01/12/18 00:15 100.0 F H 73 20 126/50 01/11/18 22:42 113/53 01/11/18 20:23 74 18 01/11/18 20:10 01/11/18 20:09 72 18 01/11/18 19:40 98.2 F 70 20 113/53 01/11/18 16:43 72 20 110/65 01/11/18 16:00 100.1 F H 01/11/18 14:05 68 18 01/11/18 13:56 70 18 Pulse Ox 01/12/18 10:25 01/12/18 08:10 93 01/12/18 08:00 01/12/18 04:51 91 01/12/18 03:47 01/12/18 03:31 01/12/18 02:25 01/12/18 02:10 01/12/18 00:15 92 01/11/18 22:42 01/11/18 20:23 01/11/18 20:10 98 01/11/18 20:09 01/11/18 19:40 100 01/11/18 16:43 94 01/11/18 16:00 01/11/18 14:05 01/11/18 13:56 - Physical Examination General: No Apparent Distress HEENT: Positive: PERRL Cardiac: Positive: Other (paced) - Labs and Meds Coagulation 01/12/18 Range/Units 07:19 PT 24.3 H (12.2-14.9) Sec. INR 2.04 H (0.87-1.13) CBC 01/12/18 Range/Units 07:19 WBC 4.8 (4.5-11.0) K/mm3 RBC 3.42 L (3.65-5.03) M/mm3 Hgb 10.2 L (11.8-15.2) gm/dl Hct 30.3 L (35.5-45.6) % Plt Count 146 (140-440) K/mm3 Lymph # 0.9 L (1.2-5.4) K/mm3 [place] # 0.5 (0.0-0.8) K/mm3 Eos # 0.3 (0.0-0.4) K/mm3 Baso # 0.0 (0.0-0.1) K/mm3 Comprehensive Metabolic Panel 01/12/18 Range/Units 07:19 Sodium 143 (137-145) mmol/L Potassium 3.0 L (3.6-5.0) mmol/L Chloride 99.2 (98-107) mmol/L Carbon Dioxide 34 H (22-30) mmol/L BUN 5 L (9-20) mg/dL Creatinine 0.6 L (0.8-1.5) mg/dL Glucose 105 H (75-100) mg/dL Calcium 8.0 L (8.4-10.2) mg/dL - Imaging and Cardiology EKG: report reviewed (Ventricular paced rhythm 70/min) - Allied health notes Allied health notes reviewed: RT
[2018-01-12] MEDS ORDERED: K-DUR PO NR (12:43)
--- NOTE | 2018-01-12 13:58 | Progress Note ---
Assessment and Plan Acute hypoxemic respiratory failure, on mechanical ventilatory support. Aspiration pneumonia (right lower lobe, right middle lobe infiltrate) Status epilepticus, resolved. Seizure Disorder History of cardiomyopathy congestive heart failure. Congenital heart disease. Oropharyngeal dysphagia. Leukocytosis Metabolic acidosis. Mild hyponatremia - continue supplemental oxygen and wean to keep sats > 90% - continue aspiration precautions - continue bronchodilators with pulmonary hygiene per RT - continue diuresis for CHF - continue AED's for seizure control - continue GI & VTE prophylaxis - will repeat CRP and begin de-escalation of AB's in am - PT/OT to evaluate and treat - continue mobility protocol for pressure ulcer prophylaxis - continue other care per attending / other consultants ... improving .... 35' Subjective Date of service: 01/12/18 Principal diagnosis: Acute Hypoxemic respiratory failure; Aspiration Pneumonia; Seizures Interval history: Patient is seen today for: Acute Hypoxemic respiratory failure; Aspiration Pneumonia; Seizures Seen and examined at bedside; 24hour events reviewed; nursing and respiratory care staff consulted; no adverse overnight events reported to me; denies repeat seizures; resting in bed; on supplemental oxygen; No N/V/F/C; no new issues otherwise Objective Vital Signs - 12hr 01/12/18 01/12/18 01/12/18 02:10 02:25 03:31 Temperature Pulse Rate 70 Pulse Rate [ 82 84 Anterior Bilateral Throughout] Pulse Rate [ From Monitor] Respiratory Rate Respiratory 18 18 Rate [Anterior Bilateral Throughout] Blood Pressure O2 Sat by Pulse Oximetry 01/12/18 01/12/18 01/12/18 03:47 04:51 08:00 Temperature 98.9 F 99.4 F Pulse Rate 74 Pulse Rate [ Anterior Bilateral Throughout] Pulse Rate [ 72 From Monitor] Respiratory 18 Rate Respiratory Rate [Anterior Bilateral Throughout] Blood Pressure 110/49 O2 Sat by Pulse 91 Oximetry 01/12/18 01/12/18 08:10 10:25 Temperature Pulse Rate 70 66 Pulse Rate [ Anterior Bilateral Throughout] Pulse Rate [ From Monitor] Respiratory 10 L Rate Respiratory Rate [Anterior Bilateral Throughout] Blood Pressure 123/66 123/66 O2 Sat by Pulse 93 Oximetry Constitutional: no acute distress, alert, other (orally intubated to MVS, OGT in place) Eyes: non-icteric ENT: oropharynx moist, other (mallampatti 2) Neck: supple, no lymphadenopathy, no JVD, other (Right IJ CVL) Effort: normal Ascultation: Bilateral: diminished breath sounds, rhonchi Cardiovascular: regular rate and rhythm, murmur noted, other (paced, S1,S2, systolic murmur) Gastrointestinal: normoactive bowel sounds, soft, non-tender, non-distended, other (no hepatosplenomegally) Integumentary: normal Extremities: no cyanosis, no edema, pulses normal, no ischemia or petechiae Neurologic: normal mental status, non-focal exam, pupils equal and round, motor strength normal and Psychiatric: mood appropriate, affect normal CBC and BMP: 01/13/18 06:35 01/13/18 06:35 ABG, PT/INR, D-dimer: ABG POC ABG pH 7.433 (7.35-7.45) 01/09/18 10:43 POC ABG pCO2 41.7 (35-45) 01/09/18 10:43 POC ABG pO2 112 (80-105) H 01/09/18 10:43 POC ABG HCO3 27.9 01/09/18 10:43 POC ABG Total CO2 29 01/09/18 10:43 POC ABG O2 Sat 99 01/09/18 10:43 PT/INR, D-dimer PT 24.3 Sec. (12.2-14.9) H 01/12/18 07:19 INR 2.04 (0.87-1.13) H 01/12/18 07:19 Abnormal lab findings: Abnormal Labs 01/07/18 01/07/18 01/07/18 20:04 20:04 20:06 WBC 12.2 H RBC Hgb Hct 47.2 H MCV 95 H MCHC 31 L Plt Count Lymph % (Auto) [place] % (Auto) Eos % (Auto) Lymph # Seg Neutrophils % Seg Neutrophils # PT INR POC ABG pH 6.761 L POC ABG pCO2 54.0 H POC ABG pO2 208 H Sodium Potassium Chloride 92.3 L Carbon Dioxide 10 L BUN Creatinine Glucose 189 H Lactic Acid Calcium C-Reactive Protein Total Protein 8.3 H Albumin Urine WBC (Auto) Vancomycin Trough 01/07/18 01/07/18 01/08/18 21:11 21:46 04:21 WBC RBC Hgb Hct MCV MCHC Plt Count Lymph % (Auto) [place] % (Auto) Eos % (Auto) Lymph # Seg Neutrophils % Seg Neutrophils # PT INR POC ABG pH 7.067 L 7.479 H POC ABG pCO2 28.3 L POC ABG pO2 196 H 160 H Sodium Potassium Chloride Carbon Dioxide BUN Creatinine Glucose Lactic Acid < 0.20 L Calcium C-Reactive Protein Total Protein Albumin Urine WBC (Auto) Vancomycin Trough 01/08/18 01/08/18 01/08/18 04:59 04:59 07:41 WBC RBC Hgb Hct MCV MCHC Plt Count 139 L Lymph % (Auto) 7.0 L [place] % (Auto) Eos % (Auto) Lymph # 0.7 L Seg Neutrophils % 87.7 H Seg Neutrophils # 8.4 H PT 49.1 H INR 4.87 H POC ABG pH POC ABG pCO2 POC ABG pO2 Sodium 135 L Potassium Chloride Carbon Dioxide 14 L BUN 8 L Creatinine Glucose 186 H Lactic Acid Calcium 7.8 L D C-Reactive Protein Total Protein 5.8 L D Albumin 3.0 L Urine WBC (Auto) Vancomycin Trough 01/08/18 01/09/18 01/09/18 13:34 01:09 01:45 WBC RBC Hgb Hct MCV MCHC Plt Count Lymph % (Auto) [place] % (Auto) Eos % (Auto) Lymph # Seg Neutrophils % Seg Neutrophils # PT INR POC ABG pH POC ABG pCO2 POC ABG pO2 Sodium Potassium Chloride Carbon Dioxide BUN Creatinine Glucose Lactic Acid 2.10 H* Calcium C-Reactive Protein 6.40 H Total Protein Albumin Urine WBC (Auto) 8.0 H Vancomycin Trough 01/09/18 01/09/18 01/09/18 04:05 04:09 04:09 WBC RBC Hgb Hct MCV MCHC Plt Count Lymph % (Auto) [place] % (Auto) Eos % (Auto) Lymph # Seg Neutrophils % Seg Neutrophils # PT 54.5 H INR 5.54 H* POC ABG pH POC ABG pCO2 POC ABG pO2 185 H Sodium Potassium Chloride Carbon Dioxide BUN Creatinine Glucose Lactic Acid 3.90 H* Calcium C-Reactive Protein Total Protein Albumin Urine WBC (Auto) Vancomycin Trough 01/09/18 01/09/18 01/10/18 10:43 19:20 05:00 WBC RBC Hgb Hct MCV MCHC Plt Count Lymph % (Auto) [place] % (Auto) Eos % (Auto) Lymph # Seg Neutrophils % Seg Neutrophils # PT 38.7 H INR 3.62 H POC ABG pH POC ABG pCO2 POC ABG pO2 112 H Sodium Potassium Chloride Carbon Dioxide BUN Creatinine Glucose Lactic Acid Calcium C-Reactive Protein 9.70 H Total Protein Albumin Urine WBC (Auto) Vancomycin Trough 01/11/18 01/11/18 01/11/18 06:12 06:12 06:12 WBC RBC 3.27 L Hgb 9.7 L Hct 28.7 L MCV MCHC Plt Count 124 L Lymph % (Auto) 11.6 L [place] % (Auto) Eos % (Auto) Lymph # 0.6 L Seg Neutrophils % 78.9 H Seg Neutrophils # PT 34.2 H INR 3.11 H POC ABG pH POC ABG pCO2 POC ABG pO2 Sodium Potassium 2.9 L* D Chloride Carbon Dioxide BUN 5 L Creatinine 0.7 L Glucose 102 H Lactic Acid Calcium 8.2 L C-Reactive Protein Total Protein Albumin Urine WBC (Auto) Vancomycin Trough 01/11/18 01/12/18 01/12/18 20:22 07:19 07:19 WBC RBC 3.42 L Hgb 10.2 L Hct 30.3 L MCV MCHC Plt Count Lymph % (Auto) [place] % (Auto) 9.5 H Eos % (Auto) 6.8 H Lymph # 0.9 L Seg Neutrophils % Seg Neutrophils # PT 24.3 H INR 2.04 H POC ABG pH POC ABG pCO2 POC ABG pO2 Sodium Potassium Chloride Carbon Dioxide BUN Creatinine Glucose Lactic Acid Calcium C-Reactive Protein Total Protein Albumin Urine WBC (Auto) Vancomycin Trough 34.7 H 01/12/18 07:19 WBC RBC Hgb Hct MCV MCHC Plt Count Lymph % (Auto) [place] % (Auto) Eos % (Auto) Lymph # Seg Neutrophils % Seg Neutrophils # PT INR POC ABG pH POC ABG pCO2 POC ABG pO2 Sodium Potassium 3.0 L Chloride Carbon Dioxide 34 H BUN 5 L Creatinine 0.6 L Glucose 105 H Lactic Acid Calcium 8.0 L C-Reactive Protein Total Protein Albumin Urine WBC (Auto) Vancomycin Trough Allied health notes reviewed: RT
[2018-01-12] MEDS: TYLENOL PO PRN (15:10)
[2018-01-12] MEDS: ZOFRAN IV PRN (15:10)
[2018-01-12] MEDS: COUMADIN PO SCH (17:37)
--- NOTE | 2018-01-12 17:58 | Progress Note ---
Assessment and Plan Assessment and plan: Mr. Zee is 37 yo man with a history of hypertension, cva, chf, seizures, dementia who presents with AMS after multiple seizures. -Acute Encephalopathy: Sec to Seizures, IV Keppra and IV fluids, CC consult-Dr Mitchell /Verito -Status Epilepticus: IV Keppra, IV Ativan -Hyperglycemia: Check A1c, Coverage for now -HTN: Cont Carvedilol and Lisinopril -Depression: Sertraline -p.Afib/aflutter: cont Warfarin with monitoring -Leukocytosis: Empiric Abx coverage -DVT prophylaxis: Lovenox 40mg sq qd -Decompensated heart failure: Cardiology is following -Acute LUE SVT: already of Warfarin -Non ischemic Cardiomyopathy, normal coronaries by [facility] 10/2014, EF 35-40% by echo this admission -Single chamber ICD ([employer]): interrogate -History of CVA/ Prior right MCA/CVA History Interval history: Patient was seen and examined. Follow-up on current diagnosis of sz. Overnight uneventful. Patient confused. Imaging, nursing note, chart, labs and old chart reviewed. Hospitalist Physical - Physical exam Narrative exam: GEN: WDWN, NAD, Awake, Alert, confused HEENT: NCAT, EOMI, PERRL, OP Clear NECK: supple, no adenopathy, no thyromegaly, no JVD CVS/HEART: irreg irregular, normal S1S2, pulses present bilaterally CHEST/LUNGS: CTA B, Symmetrical chest expansion, good air entry bilaterally GI/Abdomen: soft, NTND, good bowel sounds, no guarding or rebound /Bladder: no suprapubic tenderness, no CVA or paraspinal tenderness EXT/Skin: no c/c/e, no obvious rash Neuro: CN 2-12 grossly intact, doesn't follow commands Psych: calm - Constitutional Vitals: Temp Pulse Resp BP Pulse Ox 99.4 F 71 20 139/66 99 01/12/18 08:00 01/12/18 15:10 01/12/18 15:10 01/12/18 15:10 01/12/18 15:10 General appearance: Present: no acute distress Results - Labs CBC & Chem 7: 01/12/18 07:19 01/12/18 07:19 Labs: Laboratory Last Values WBC 4.8 K/mm3 (4.5-11.0) 01/12/18 07:19 RBC 3.42 M/mm3 (3.65-5.03) L 01/12/18 07:19 Hgb 10.2 gm/dl (11.8-15.2) L 01/12/18 07:19 Hct 30.3 % (35.5-45.6) L 01/12/18 07:19 MCV 89 fl (84-94) 01/12/18 07:19 MCH 30 pg (28-32) 01/12/18 07:19 MCHC 34 % (32-34) 01/12/18 07:19 RDW 14.6 % (13.2-15.2) 01/12/18 07:19 Plt Count 146 K/mm3 (140-440) 01/12/18 07:19 Lymph % (Auto) 17.9 % (13.4-35.0) 01/12/18 07:19 [place] % (Auto) 9.5 % (0.0-7.3) H 01/12/18 07:19 Eos % (Auto) 6.8 % (0.0-4.3) H 01/12/18 07:19 Baso % (Auto) 0.6 % (0.0-1.8) 01/12/18 07:19 Lymph # 0.9 K/mm3 (1.2-5.4) L 01/12/18 07:19 [place] # 0.5 K/mm3 (0.0-0.8) 01/12/18 07:19 Eos # 0.3 K/mm3 (0.0-0.4) 01/12/18 07:19 Baso # 0.0 K/mm3 (0.0-0.1) 01/12/18 07:19 Add Manual Diff Complete 01/08/18 04:59 Seg Neutrophils % 65.2 % (40.0-70.0) 01/12/18 07:19 Seg Neutrophils # 3.1 K/mm3 (1.8-7.7) 01/12/18 07:19 PT 24.3 Sec. (12.2-14.9) H 01/12/18 07:19 INR 2.04 (0.87-1.13) H 01/12/18 07:19 POC ABG pH 7.433 (7.35-7.45) 01/09/18 10:43 POC ABG pCO2 41.7 (35-45) 01/09/18 10:43 POC ABG pO2 112 (80-105) H 01/09/18 10:43 POC ABG HCO3 27.9 01/09/18 10:43 POC ABG Total CO2 29 01/09/18 10:43 POC ABG O2 Sat 99 01/09/18 10:43 POC ABG Base Excess 4 01/09/18 10:43 FiO2 30 % 01/09/18 10:43 Sodium 143 mmol/L (137-145) 01/12/18 07:19 Potassium 3.0 mmol/L (3.6-5.0) L 01/12/18 07:19 Chloride 99.2 mmol/L (98-107) 01/12/18 07:19 Carbon Dioxide 34 mmol/L (22-30) H 01/12/18 07:19 Anion Gap 13 mmol/L 01/12/18 07:19 BUN 5 mg/dL (9-20) L 01/12/18 07:19 Creatinine 0.6 mg/dL (0.8-1.5) L 01/12/18 07:19 Estimated GFR > 60 ml/min 01/12/18 07:19 BUN/Creatinine Ratio 8 % 01/12/18 07:19 Glucose 105 mg/dL (75-100) H 01/12/18 07:19 Hemoglobin A1c 5.9 % (4-6) 01/08/18 00:09 Lactic Acid 1.10 mmol/L (0.7-2.0) 01/09/18 15:10 Calcium 8.0 mg/dL (8.4-10.2) L 01/12/18 07:19 Total Bilirubin 0.30 mg/dL (0.1-1.2) 01/08/18 04:59 AST 31 units/L (5-40) 01/08/18 04:59 ALT 19 units/L (7-56) 01/08/18 04:59 Alkaline Phosphatase 77 units/L (35-129) 01/08/18 04:59 Troponin T < 0.010 ng/mL (0.00-0.029) 01/07/18 21:11 C-Reactive Protein 9.70 mg/dL (0.00-1.30) H 01/09/18 19:20 Total Protein 5.8 g/dL (6.3-8.2) L D 01/08/18 04:59 Albumin 3.0 g/dL (3.9-5) L 01/08/18 04:59 Albumin/Globulin Ratio 1.1 % 01/08/18 04:59 Urine Color Yellow (Yellow) 01/09/18 01:45 Urine Turbidity Hazy (Clear) 01/09/18 01:45 Urine pH 6.0 (5.0-7.0) 01/09/18 01:45 Ur Specific [place] 1.007 (1.003-1.030) 01/09/18 01:45 Urine Protein <15 mg/dl mg/dL (Negative) 01/09/18 01:45 Urine Glucose (UA) >=500 mg/dL (Negative) 01/09/18 01:45 Urine Ketones Neg mg/dL (Negative) 01/09/18 01:45 Urine Blood Neg (Negative) 01/09/18 01:45 Urine Nitrite Neg (Negative) 01/09/18 01:45 Urine Bilirubin Neg (Negative) 01/09/18 01:45 Urine Urobilinogen < 2.0 mg/dL (<2.0) 01/09/18 01:45 Ur Leukocyte Esterase Lg (Negative) 01/09/18 01:45 Urine WBC (Auto) 8.0 /HPF (0.0-6.0) H 01/09/18 01:45 Urine RBC (Auto) < 1.0 /HPF (0.0-6.0) 01/09/18 01:45 U Epithel Cells (Auto) < 1.0 /HPF (0-13.0) 01/09/18 01:45 Urine Bacteria (Auto) 1+ /HPF (Negative) 01/09/18 01:45 Urine Mucus Few /HPF 01/09/18 01:45 Vancomycin Trough 34.7 ug/mL (5.0-20.0) H 01/11/18 20:22 Urine Opiates Screen Presumptive negative 01/08/18 04:56 Urine Methadone Screen Presumptive negative 01/08/18 04:56 Ur Barbiturates Screen Presumptive negative 01/08/18 04:56 Carbamazepine 4.8 ug/mL (4-12) 01/07/18 20:04 Ur Phencyclidine Scrn Presumptive negative 01/08/18 04:56 Ur Amphetamines Screen Presumptive negative 01/08/18 04:56 U Benzodiazepines Scrn Presumptive negative 01/08/18 04:56 Urine Cocaine Screen Presumptive negative 01/08/18 04:56 U Marijuana (THC) Screen Presumptive negative 01/08/18 04:56 Drugs of Abuse Note Disclamer 01/08/18 04:56 Plasma/Serum Alcohol < 0.01 % (0-0.07) 01/07/18 20:04
[2018-01-12] MEDS ORDERED: PROVENTIL IH PRN (18:57)
[2018-01-12] MEDS: COREG PO SCH (22:00)
[2018-01-13] MEDS: MORPHINE IV PRN ×2 (01:13→22:48)
[2018-01-13] MEDS: MAXIPIME/NS 2 GM/100 ML 2 GM/100 ML BAG IV SCH ×2 (06:18→15:35)
[2018-01-13 07:11] LABS: BUN/Creatinine Ratio 14; Blood Urea Nitrogen 7 mg/dL (9-20); Calcium 8.5 mg/dL (8.4-10.2); Hemolysis Index 5
[2018-01-13 07:40] LABS: INR 1.48 (0.87-1.13)
[2018-01-13 07:43] LABS: Basophils % (Auto) 0.5 % (0.0-1.8); Eosinophils # (Auto) 0.4 K/mm3 (0.0-0.4); Eosinophils % (Auto) 7.2 % (0.0-4.3); Hematocrit 31.4 % (35.5-45.6); Hemoglobin 10.5 gm/dl (11.8-15.2); Lymphocytes % (Auto) 15.7 % (13.4-35.0); Mean Corpuscular HGB Conc 33 % (32-34); Mean Corpuscular Hemoglobin 29 pg (28-32); Mean Corpuscular Volume 88 fl (84-94); Monocytes # (Auto) 0.7 K/mm3 (0.0-0.8); Monocytes % (Auto) 10.6 % (0.0-7.3); Platelet Count 167 K/mm3 (140-440); Red Blood Count 3.56 M/mm3 (3.65-5.03); Red Cell Distribution Width 14.6 % (13.2-15.2)
[2018-01-13] MEDS: COREG PO SCH ×3 (07:44→23:00)
[2018-01-13] MEDS: KEPPRA PO SCH ×5 (07:45→23:01)
[2018-01-13] MEDS: DUONEB *Not for PRN Use IH SCH ×3 (08:10→22:03)
[2018-01-13] MEDS: ZOFRAN IV PRN ×2 (08:15→21:14)
[2018-01-13] MEDS ORDERED: K-DUR PO ONE (09:14)
--- NOTE | 2018-01-13 09:23 | XRay Report ---
AP CHEST: HISTORY: Followup respiratory failure Cardiomegaly and pulmonary venous congestion have decreased by 20%. Hazy opacity in the left perihilar region has essentially resolved. The lungs are generally clear other than congestive changes. Trace right pleural effusion is suspected. Lines and support devices remain in good position. IMPRESSION: Mild improvement in cardiomegaly and pulmonary venous congestion.
[2018-01-13] MEDS: PEPCID PO SCH (10:48)
[2018-01-13] MEDS: LASIX IV SCH (10:48)
[2018-01-13] MEDS: ZOLOFT PO SCH (10:49)
[2018-01-13] MEDS: ZESTRIL PO SCH (10:49)
[2018-01-13] MEDS: K-DUR PO SCH (10:49)
[2018-01-13] MEDS: BABY ASPIRIN PO SCH (10:50)
[2018-01-13] MEDS: SODIUM CHLORIDE FLUSH SYRINGE 10 ML IV SCH ×2 (10:50→21:20)
--- NOTE | 2018-01-13 11:07 | Progress Note ---
Assessment and Plan - Patient Problems (1) Nonischemic cardiomyopathy Current Visit: No Status: Acute Plan to address problem: Patient has history of nonischemic cardiomyopathy and paroxysmal atrial fibrillation. Will continue medical therapy as previously outlined. Current presentation with seizures, no active cardiac complaints. Subjective Date of service: 01/13/18 Principal diagnosis: Acute Hypoxemic respiratory failure; Aspiration Pneumonia; Seizures Interval history: Patient is comfortable, no cardiac complaints. Objective Vital Signs Temp Pulse Pulse Pulse Resp Resp BP 01/13/18 08:09 01/13/18 08:07 98.7 F 75 20 123/78 01/13/18 06:04 99 F 76 18 01/13/18 05:44 75 01/13/18 04:15 75 01/13/18 03:24 67 01/13/18 01:24 98.9 F 70 18 01/13/18 00:52 72 115/58 01/12/18 20:30 98.7 F 69 20 01/12/18 19:58 70 102/57 01/12/18 16:00 98.2 F 67 82 20 18 01/12/18 15:45 80 20 01/12/18 15:10 71 20 139/66 01/12/18 15:00 71 20 BP Pulse Ox 01/13/18 08:09 96 01/13/18 08:07 94 01/13/18 06:04 120/59 98 01/13/18 05:44 01/13/18 04:15 98 01/13/18 03:24 01/13/18 01:24 115/58 92 01/13/18 00:52 89 01/12/18 20:30 102/57 98 01/12/18 19:58 98 01/12/18 16:00 122/66 98 01/12/18 15:45 01/12/18 15:10 99 01/12/18 15:00 99 - Physical Examination General: No Apparent Distress HEENT: Positive: PERRL Neck: Positive: neck supple Cardiac: Positive: Reg Rate and Rhythm Lungs: Positive: Decreased Breath Sounds Neuro: Positive: Grossly Intact Abdomen: Positive: Soft Skin: Positive: Clear Extremities: Absent: edema - Labs and Meds Coagulation 01/13/18 Range/Units 06:35 PT 18.8 H (12.2-14.9) Sec. INR 1.48 H (0.87-1.13) CBC 01/13/18 Range/Units 06:35 WBC 6.2 (4.5-11.0) K/mm3 RBC 3.56 L (3.65-5.03) M/mm3 Hgb 10.5 L (11.8-15.2) gm/dl Hct 31.4 L (35.5-45.6) % Plt Count 167 (140-440) K/mm3 Lymph # 1.0 L (1.2-5.4) K/mm3 [place] # 0.7 (0.0-0.8) K/mm3 Eos # 0.4 (0.0-0.4) K/mm3 Baso # 0.0 (0.0-0.1) K/mm3 Comprehensive Metabolic Panel 01/13/18 Range/Units 06:35 Sodium 145 (137-145) mmol/L Potassium 3.2 L (3.6-5.0) mmol/L Chloride 99.1 (98-107) mmol/L Carbon Dioxide 34 H (22-30) mmol/L BUN 7 L (9-20) mg/dL Creatinine 0.5 L (0.8-1.5) mg/dL Glucose 98 (75-100) mg/dL Calcium 8.5 (8.4-10.2) mg/dL - Imaging and Cardiology EKG: report reviewed (Ventricular paced rhythm 70/min) - Allied health notes Allied health notes reviewed: RT
--- NOTE | 2018-01-13 14:26 | Progress Note ---
Assessment and Plan Acute hypoxemic respiratory failure, on mechanical ventilatory support. Aspiration pneumonia (right lower lobe, right middle lobe infiltrate) Status epilepticus, resolved. Seizure Disorder History of cardiomyopathy congestive heart failure. Congenital heart disease. Oropharyngeal dysphagia. Leukocytosis Metabolic acidosis. Mild hyponatremia - continue supplemental oxygen and wean to keep sats > 90% - continue aspiration precautions - continue bronchodilators with pulmonary hygiene per RT - continue diuresis for CHF - continue AED's for seizure control - continue GI & VTE prophylaxis - will repeat CRP and begin de-escalation of AB's in am - PT/OT to evaluate and treat - continue mobility protocol for pressure ulcer prophylaxis - continue other care per attending / other consultants ... improving .... 35' Subjective Date of service: 01/13/18 Principal diagnosis: Acute Hypoxemic respiratory failure; Aspiration Pneumonia; Seizures Interval history: Patient is seen today for: Acute Hypoxemic respiratory failure; Aspiration Pneumonia; Seizures Seen and examined at bedside; 24hour events reviewed; nursing and respiratory care staff consulted; no adverse overnight events reported to me; denies repeat seizures; Objective Vital Signs - 12hr 01/13/18 01/13/18 01/13/18 03:24 04:15 05:44 Temperature Pulse Rate 75 75 Pulse Rate [ 67 From Monitor] Respiratory Rate Blood Pressure Blood Pressure [Left] O2 Sat by Pulse 98 Oximetry 01/13/18 01/13/18 01/13/18 06:04 08:07 08:09 Temperature 99 F 98.7 F Pulse Rate 76 75 Pulse Rate [ From Monitor] Respiratory 18 20 Rate Blood Pressure 123/78 Blood Pressure 120/59 [Left] O2 Sat by Pulse 98 94 96 Oximetry 01/13/18 01/13/18 01/13/18 10:00 11:24 11:33 Temperature 98.5 F Pulse Rate 78 75 Pulse Rate [ 78 From Monitor] Respiratory 18 Rate Blood Pressure 111/63 Blood Pressure [Left] O2 Sat by Pulse 95 Oximetry Constitutional: no acute distress, alert, other (orally intubated to MVS, OGT in place) Eyes: non-icteric ENT: oropharynx moist, other (mallampatti 2) Neck: supple, no lymphadenopathy, no JVD, other (Right IJ CVL) Effort: normal Ascultation: Bilateral: diminished breath sounds, rhonchi Percussion: Bilateral: not dull Cardiovascular: regular rate and rhythm, murmur noted, other (paced, S1,S2, systolic murmur) Gastrointestinal: normoactive bowel sounds, soft, non-tender, non-distended, other (no hepatosplenomegally) Integumentary: normal Extremities: no cyanosis, no edema, pulses normal, no ischemia or petechiae Neurologic: normal mental status, non-focal exam, pupils equal and round, motor strength normal and Psychiatric: mood appropriate, affect normal CBC and BMP: 01/13/18 06:35 01/13/18 06:35 ABG, PT/INR, D-dimer: ABG POC ABG pH 7.433 (7.35-7.45) 01/09/18 10:43 POC ABG pCO2 41.7 (35-45) 01/09/18 10:43 POC ABG pO2 112 (80-105) H 01/09/18 10:43 POC ABG HCO3 27.9 01/09/18 10:43 POC ABG Total CO2 29 01/09/18 10:43 POC ABG O2 Sat 99 01/09/18 10:43 PT/INR, D-dimer PT 18.8 Sec. (12.2-14.9) H 01/13/18 06:35 INR 1.48 (0.87-1.13) H 01/13/18 06:35 Abnormal lab findings: Abnormal Labs 01/07/18 01/07/18 01/07/18 20:04 20:04 20:06 WBC 12.2 H RBC Hgb Hct 47.2 H MCV 95 H MCHC 31 L Plt Count Lymph % (Auto) [place] % (Auto) Eos % (Auto) Lymph # Seg Neutrophils % Seg Neutrophils # PT INR POC ABG pH 6.761 L POC ABG pCO2 54.0 H POC ABG pO2 208 H Sodium Potassium Chloride 92.3 L Carbon Dioxide 10 L BUN Creatinine Glucose 189 H Lactic Acid Calcium C-Reactive Protein Total Protein 8.3 H Albumin Urine WBC (Auto) Vancomycin Trough 01/07/18 01/07/18 01/08/18 21:11 21:46 04:21 WBC RBC Hgb Hct MCV MCHC Plt Count Lymph % (Auto) [place] % (Auto) Eos % (Auto) Lymph # Seg Neutrophils % Seg Neutrophils # PT INR POC ABG pH 7.067 L 7.479 H POC ABG pCO2 28.3 L POC ABG pO2 196 H 160 H Sodium Potassium Chloride Carbon Dioxide BUN Creatinine Glucose Lactic Acid < 0.20 L Calcium C-Reactive Protein Total Protein Albumin Urine WBC (Auto) Vancomycin Trough 01/08/18 01/08/18 01/08/18 04:59 04:59 07:41 WBC RBC Hgb Hct MCV MCHC Plt Count 139 L Lymph % (Auto) 7.0 L [place] % (Auto) Eos % (Auto) Lymph # 0.7 L Seg Neutrophils % 87.7 H Seg Neutrophils # 8.4 H PT 49.1 H INR 4.87 H POC ABG pH POC ABG pCO2 POC ABG pO2 Sodium 135 L Potassium Chloride Carbon Dioxide 14 L BUN 8 L Creatinine Glucose 186 H Lactic Acid Calcium 7.8 L D C-Reactive Protein Total Protein 5.8 L D Albumin 3.0 L Urine WBC (Auto) Vancomycin Trough 01/08/18 01/09/18 01/09/18 13:34 01:09 01:45 WBC RBC Hgb Hct MCV MCHC Plt Count Lymph % (Auto) [place] % (Auto) Eos % (Auto) Lymph # Seg Neutrophils % Seg Neutrophils # PT INR POC ABG pH POC ABG pCO2 POC ABG pO2 Sodium Potassium Chloride Carbon Dioxide BUN Creatinine Glucose Lactic Acid 2.10 H* Calcium C-Reactive Protein 6.40 H Total Protein Albumin Urine WBC (Auto) 8.0 H Vancomycin Trough 01/09/18 01/09/18 01/09/18 04:05 04:09 04:09 WBC RBC Hgb Hct MCV MCHC Plt Count Lymph % (Auto) [place] % (Auto) Eos % (Auto) Lymph # Seg Neutrophils % Seg Neutrophils # PT 54.5 H INR 5.54 H* POC ABG pH POC ABG pCO2 POC ABG pO2 185 H Sodium Potassium Chloride Carbon Dioxide BUN Creatinine Glucose Lactic Acid 3.90 H* Calcium C-Reactive Protein Total Protein Albumin Urine WBC (Auto) Vancomycin Trough 01/09/18 01/09/18 01/10/18 10:43 19:20 05:00 WBC RBC Hgb Hct MCV MCHC Plt Count Lymph % (Auto) [place] % (Auto) Eos % (Auto) Lymph # Seg Neutrophils % Seg Neutrophils # PT 38.7 H INR 3.62 H POC ABG pH POC ABG pCO2 POC ABG pO2 112 H Sodium Potassium Chloride Carbon Dioxide BUN Creatinine Glucose Lactic Acid Calcium C-Reactive Protein 9.70 H Total Protein Albumin Urine WBC (Auto) Vancomycin Trough 01/11/18 01/11/18 01/11/18 06:12 06:12 06:12 WBC RBC 3.27 L Hgb 9.7 L Hct 28.7 L MCV MCHC Plt Count 124 L Lymph % (Auto) 11.6 L [place] % (Auto) Eos % (Auto) Lymph # 0.6 L Seg Neutrophils % 78.9 H Seg Neutrophils # PT 34.2 H INR 3.11 H POC ABG pH POC ABG pCO2 POC ABG pO2 Sodium Potassium 2.9 L* D Chloride Carbon Dioxide BUN 5 L Creatinine 0.7 L Glucose 102 H Lactic Acid Calcium 8.2 L C-Reactive Protein Total Protein Albumin Urine WBC (Auto) Vancomycin Trough 01/11/18 01/12/18 01/12/18 20:22 07:19 07:19 WBC RBC 3.42 L Hgb 10.2 L Hct 30.3 L MCV MCHC Plt Count Lymph % (Auto) [place] % (Auto) 9.5 H Eos % (Auto) 6.8 H Lymph # 0.9 L Seg Neutrophils % Seg Neutrophils # PT 24.3 H INR 2.04 H POC ABG pH POC ABG pCO2 POC ABG pO2 Sodium Potassium Chloride Carbon Dioxide BUN Creatinine Glucose Lactic Acid Calcium C-Reactive Protein Total Protein Albumin Urine WBC (Auto) Vancomycin Trough 34.7 H 01/12/18 01/13/18 01/13/18 07:19 06:35 06:35 WBC RBC 3.56 L Hgb 10.5 L Hct 31.4 L MCV MCHC Plt Count Lymph % (Auto) [place] % (Auto) 10.6 H Eos % (Auto) 7.2 H Lymph # 1.0 L Seg Neutrophils % Seg Neutrophils # PT 18.8 H INR 1.48 H POC ABG pH POC ABG pCO2 POC ABG pO2 Sodium Potassium 3.0 L Chloride Carbon Dioxide 34 H BUN 5 L Creatinine 0.6 L Glucose 105 H Lactic Acid Calcium 8.0 L C-Reactive Protein Total Protein Albumin Urine WBC (Auto) Vancomycin Trough 01/13/18 06:35 WBC RBC Hgb Hct MCV MCHC Plt Count Lymph % (Auto) [place] % (Auto) Eos % (Auto) Lymph # Seg Neutrophils % Seg Neutrophils # PT INR POC ABG pH POC ABG pCO2 POC ABG pO2 Sodium Potassium 3.2 L Chloride Carbon Dioxide 34 H BUN 7 L Creatinine 0.5 L Glucose Lactic Acid Calcium C-Reactive Protein Total Protein Albumin Urine WBC (Auto) Vancomycin Trough Allied health notes reviewed: RT
[2018-01-13] MEDS: COUMADIN PO SCH (17:13)
--- NOTE | 2018-01-13 17:34 | Progress Note ---
Assessment and Plan Assessment and plan: Mr. Zee is 37 yo man with a history of hypertension, cva, chf, seizures, dementia who presents with AMS after multiple seizures -Acute Encephalopathy: Sec to Seizures, IV Keppra -SIRS, poa with early sepsis due to aspiration pneumonitis: treated with abx, d/ w Cefepime -Status Epilepticus s/p Intubation and Extubation: IV Keppra, IV Ativan prn -Hyperglycemia: Check A1c==>normal -HTN: Cont Carvedilol and Lisinopril -Depression: Sertraline -p.Afib/aflutter: cont Warfarin with monitoring -DVT prophylaxis: on Warfarin -Acute on chronic systolic Decompensated heart failure: Cardiology is following on iv lasix -Acute LUE SVT: already of Warfarin -Non ischemic Cardiomyopathy, normal coronaries by [facility] 10/2014, EF 35-40% by echo this admission -Single chamber ICD (Medtronic): interrogated -History of CVA/ Prior right MCA/CVA -Hypokalemia: replace and recheck n/v today, get KUB, downgrade diet History Interval history: Patient was seen and examined. Follow-up on current diagnosis of sz. Overnight uneventful. Patient c/o n/v. Imaging, nursing note, chart, labs and old chart reviewed. Hospitalist Physical - Physical exam Narrative exam: GEN: WDWN, NAD, Awake, Alert, confused HEENT: NCAT, EOMI, PERRL, OP Clear NECK: supple, no adenopathy, no thyromegaly, no JVD CVS/HEART: irreg irregular, normal S1S2, pulses present bilaterally CHEST/LUNGS: CTA B, Symmetrical chest expansion, good air entry bilaterally GI/Abdomen: soft, NTND, good bowel sounds, no guarding or rebound /Bladder: no suprapubic tenderness, no CVA or paraspinal tenderness EXT/Skin: no c/c/e, no obvious rash Neuro: CN 2-12 grossly intact, doesn't follow commands Psych: calm - Constitutional Vitals: Temp Pulse Resp BP Pulse Ox 98.2 F 71 18 96/47 97 01/13/18 15:47 01/13/18 15:47 01/13/18 15:47 01/13/18 15:47 01/13/18 15:47 General appearance: Present: no acute distress Results - Labs CBC & Chem 7: 01/13/18 06:35 01/13/18 06:35 Labs: Laboratory Last Values WBC 6.2 K/mm3 (4.5-11.0) 01/13/18 06:35 RBC 3.56 M/mm3 (3.65-5.03) L 01/13/18 06:35 Hgb 10.5 gm/dl (11.8-15.2) L 01/13/18 06:35 Hct 31.4 % (35.5-45.6) L 01/13/18 06:35 MCV 88 fl (84-94) 01/13/18 06:35 MCH 29 pg (28-32) 01/13/18 06:35 MCHC 33 % (32-34) 01/13/18 06:35 RDW 14.6 % (13.2-15.2) 01/13/18 06:35 Plt Count 167 K/mm3 (140-440) 01/13/18 06:35 Lymph % (Auto) 15.7 % (13.4-35.0) 01/13/18 06:35 [place] % (Auto) 10.6 % (0.0-7.3) H 01/13/18 06:35 Eos % (Auto) 7.2 % (0.0-4.3) H 01/13/18 06:35 Baso % (Auto) 0.5 % (0.0-1.8) 01/13/18 06:35 Lymph # 1.0 K/mm3 (1.2-5.4) L 01/13/18 06:35 [place] # 0.7 K/mm3 (0.0-0.8) 01/13/18 06:35 Eos # 0.4 K/mm3 (0.0-0.4) 01/13/18 06:35 Baso # 0.0 K/mm3 (0.0-0.1) 01/13/18 06:35 Add Manual Diff Complete 01/08/18 04:59 Seg Neutrophils % 66.0 % (40.0-70.0) 01/13/18 06:35 Seg Neutrophils # 4.1 K/mm3 (1.8-7.7) 01/13/18 06:35 PT 18.8 Sec. (12.2-14.9) H 01/13/18 06:35 INR 1.48 (0.87-1.13) H 01/13/18 06:35 POC ABG pH 7.433 (7.35-7.45) 01/09/18 10:43 POC ABG pCO2 41.7 (35-45) 01/09/18 10:43 POC ABG pO2 112 (80-105) H 01/09/18 10:43 POC ABG HCO3 27.9 01/09/18 10:43 POC ABG Total CO2 29 01/09/18 10:43 POC ABG O2 Sat 99 01/09/18 10:43 POC ABG Base Excess 4 01/09/18 10:43 FiO2 30 % 01/09/18 10:43 Sodium 145 mmol/L (137-145) 01/13/18 06:35 Potassium 3.2 mmol/L (3.6-5.0) L 01/13/18 06:35 Chloride 99.1 mmol/L (98-107) 01/13/18 06:35 Carbon Dioxide 34 mmol/L (22-30) H 01/13/18 06:35 Anion Gap 15 mmol/L 01/13/18 06:35 BUN 7 mg/dL (9-20) L 01/13/18 06:35 Creatinine 0.5 mg/dL (0.8-1.5) L 01/13/18 06:35 Estimated GFR > 60 ml/min 01/13/18 06:35 BUN/Creatinine Ratio 14 % 01/13/18 06:35 Glucose 98 mg/dL (75-100) 01/13/18 06:35 Hemoglobin A1c 5.9 % (4-6) 01/08/18 00:09 Lactic Acid 1.10 mmol/L (0.7-2.0) 01/09/18 15:10 Calcium 8.5 mg/dL (8.4-10.2) 01/13/18 06:35 Total Bilirubin 0.30 mg/dL (0.1-1.2) 01/08/18 04:59 AST 31 units/L (5-40) 01/08/18 04:59 ALT 19 units/L (7-56) 01/08/18 04:59 Alkaline Phosphatase 77 units/L (35-129) 01/08/18 04:59 Troponin T < 0.010 ng/mL (0.00-0.029) 01/07/18 21:11 C-Reactive Protein 5.70 mg/dL (0.00-1.30) H 01/13/18 14:36 Total Protein 5.8 g/dL (6.3-8.2) L D 01/08/18 04:59 Albumin 3.0 g/dL (3.9-5) L 01/08/18 04:59 Albumin/Globulin Ratio 1.1 % 01/08/18 04:59 Urine Color Yellow (Yellow) 01/09/18 01:45 Urine Turbidity Hazy (Clear) 01/09/18 01:45 Urine pH 6.0 (5.0-7.0) 01/09/18 01:45 Ur Specific [place] 1.007 (1.003-1.030) 01/09/18 01:45 Urine Protein <15 mg/dl mg/dL (Negative) 01/09/18 01:45 Urine Glucose (UA) >=500 mg/dL (Negative) 01/09/18 01:45 Urine Ketones Neg mg/dL (Negative) 01/09/18 01:45 Urine Blood Neg (Negative) 01/09/18 01:45 Urine Nitrite Neg (Negative) 01/09/18 01:45 Urine Bilirubin Neg (Negative) 01/09/18 01:45 Urine Urobilinogen < 2.0 mg/dL (<2.0) 01/09/18 01:45 Ur Leukocyte Esterase Lg (Negative) 01/09/18 01:45 Urine WBC (Auto) 8.0 /HPF (0.0-6.0) H 01/09/18 01:45 Urine RBC (Auto) < 1.0 /HPF (0.0-6.0) 01/09/18 01:45 U Epithel Cells (Auto) < 1.0 /HPF (0-13.0) 01/09/18 01:45 Urine Bacteria (Auto) 1+ /HPF (Negative) 01/09/18 01:45 Urine Mucus Few /HPF 01/09/18 01:45 Vancomycin Trough 34.7 ug/mL (5.0-20.0) H 01/11/18 20:22 Urine Opiates Screen Presumptive negative 01/08/18 04:56 Urine Methadone Screen Presumptive negative 01/08/18 04:56 Ur Barbiturates Screen Presumptive negative 01/08/18 04:56 Carbamazepine 4.8 ug/mL (4-12) 01/07/18 20:04 Ur Phencyclidine Scrn Presumptive negative 01/08/18 04:56 Ur Amphetamines Screen Presumptive negative 01/08/18 04:56 U Benzodiazepines Scrn Presumptive negative 01/08/18 04:56 Urine Cocaine Screen Presumptive negative 01/08/18 04:56 U Marijuana (THC) Screen Presumptive negative 01/08/18 04:56 Drugs of Abuse Note Disclamer 01/08/18 04:56 Plasma/Serum Alcohol < 0.01 % (0-0.07) 01/07/18 20:04
--- NOTE | 2018-01-13 18:13 | XRay Report ---
FINAL REPORT EXAM: XR ABDOMEN 1V AP HISTORY: n/v TECHNIQUE: Supine views of the abdomen PRIORS: KUB abdomen 09/14/2016 FINDINGS: The bowel gas pattern is nonspecific. Moderate stool is present throughout much of of the colon. No free air is identified. Soft tissues have no evidence for mass shadows. Heavy calcifications in the left pelvis are again noted. Inferior vena cava filter is again noted to the right of L2-L3. The bony structures are intact. IMPRESSION: Nonspecific, nonobstructive bowel gas pattern with no acute process noted. Moderate stool throughout the colon which can be associated constipation.
[2018-01-13] MEDS ORDERED: CEPHULAC PO ONE (21:00)
[2018-01-14] MEDS: MORPHINE IV PRN (04:24)
[2018-01-14] MEDS: KEPPRA PO SCH ×3 (06:08→17:58)
[2018-01-14 07:09] LABS: Hematocrit 31.9 % (35.5-45.6); Hemoglobin 10.8 gm/dl (11.8-15.2); Mean Corpuscular HGB Conc 34 % (32-34); Mean Corpuscular Hemoglobin 30 pg (28-32); Mean Corpuscular Volume 89 fl (84-94); Platelet Count 191 K/mm3 (140-440); Red Cell Distribution Width 14.5 % (13.2-15.2)
[2018-01-14 07:31] LABS: BUN/Creatinine Ratio 18; Blood Urea Nitrogen 9 mg/dL (9-20); Calcium 8.4 mg/dL (8.4-10.2); Hemolysis Index 0
[2018-01-14 08:17] LABS: INR 1.76 (0.87-1.13)
[2018-01-14] MEDS ORDERED: POTASSIUM CHLORIDE PO NR (08:37)
[2018-01-14] MEDS: DUONEB *Not for PRN Use IH SCH ×3 (08:44→20:49)
--- NOTE | 2018-01-14 09:21 | XRay Report ---
AP CHEST: History: Followup respiratory failure. Comparison of the current study with the prior examination of 01/14/18 shows no appreciable interval change.
[2018-01-14] MEDS: LASIX IV SCH (10:13)
[2018-01-14] MEDS: ZESTRIL PO SCH (10:13)
[2018-01-14] MEDS: PEPCID PO SCH (10:14)
[2018-01-14] MEDS: BABY ASPIRIN PO SCH (10:14)
[2018-01-14] MEDS: COREG PO SCH ×2 (10:14→22:00)
[2018-01-14] MEDS: K-DUR PO SCH (10:14)
[2018-01-14] MEDS: ZOLOFT PO SCH (10:14)
[2018-01-14] MEDS: SODIUM CHLORIDE FLUSH SYRINGE 10 ML IV SCH ×2 (10:15→21:57)
--- NOTE | 2018-01-14 12:03 | Progress Note ---
Assessment and Plan Assessment and plan: Mr. Zee is 37 yo man with a history of hypertension, cva, chf, seizures, dementia who presents with AMS after multiple seizures -Acute Encephalopathy: Sec to Seizures, IV Keppra -SIRS, poa with early sepsis due to aspiration pneumonitis: treated with abx, d/ c Cefepime -Status Epilepticus s/p Intubation and Extubation: IV Keppra, IV Ativan prn -Hyperglycemia: Check A1c==>normal -HTN: Cont Carvedilol and Lisinopril -Depression: Sertraline -p.Afib/aflutter: cont Warfarin with monitoring -DVT prophylaxis: on Warfarin -Acute on chronic systolic Decompensated heart failure: Cardiology is following on iv lasix -Acute LUE SVT: already of Warfarin -Non ischemic Cardiomyopathy, normal coronaries by [facility] 10/2014, EF 35-40% by echo this admission -Single chamber ICD (Medtronic): interrogated -History of CVA/ Prior right MCA/CVA -Hypokalemia: replace and recheck n/v yesterday obtained KUB==>unremarkable except Constipation, Lactulose did not help and patient still nauseated: plan, give dulcolax suppository, start clear liquids, consult GI for intractable nausea. Once n/v resolved, home with oral keppra. History Interval history: Patient was seen and examined. Follow-up on current diagnosis of sz. Overnight uneventful. Patient c/o nausea but no vomiting as his was made NPO. Imaging, nursing note, chart, labs and old chart reviewed. Hospitalist Physical - Physical exam Narrative exam: GEN: WDWN, NAD, Awake, Alert, confused HEENT: NCAT, EOMI, PERRL, OP Clear NECK: supple, no adenopathy, no thyromegaly, no JVD CVS/HEART: irreg irregular, normal S1S2, pulses present bilaterally CHEST/LUNGS: CTA B, Symmetrical chest expansion, good air entry bilaterally GI/Abdomen: soft, NTND, good bowel sounds, no guarding or rebound /Bladder: no suprapubic tenderness, no CVA or paraspinal tenderness EXT/Skin: no c/c/e, no obvious rash Neuro: CN 2-12 grossly intact, doesn't follow commands Psych: calm - Constitutional Vitals: Temp Pulse Resp BP Pulse Ox 98.5 F 70 18 105/56 93 01/14/18 08:00 01/14/18 10:00 01/14/18 09:05 01/14/18 07:41 01/14/18 08:47 General appearance: Present: no acute distress Results - Labs CBC & Chem 7: 01/14/18 06:51 01/14/18 06:51 Labs: Laboratory Last Values WBC 4.0 K/mm3 (4.5-11.0) L 01/14/18 06:51 RBC 3.60 M/mm3 (3.65-5.03) L 01/14/18 06:51 Hgb 10.8 gm/dl (11.8-15.2) L 01/14/18 06:51 Hct 31.9 % (35.5-45.6) L 01/14/18 06:51 MCV 89 fl (84-94) 01/14/18 06:51 MCH 30 pg (28-32) 01/14/18 06:51 MCHC 34 % (32-34) 01/14/18 06:51 RDW 14.5 % (13.2-15.2) 01/14/18 06:51 Plt Count 191 K/mm3 (140-440) 01/14/18 06:51 Lymph % (Auto) 15.7 % (13.4-35.0) 01/13/18 06:35 [place] % (Auto) 10.6 % (0.0-7.3) H 01/13/18 06:35 Eos % (Auto) 7.2 % (0.0-4.3) H 01/13/18 06:35 Baso % (Auto) 0.5 % (0.0-1.8) 01/13/18 06:35 Lymph # 1.0 K/mm3 (1.2-5.4) L 01/13/18 06:35 [place] # 0.7 K/mm3 (0.0-0.8) 01/13/18 06:35 Eos # 0.4 K/mm3 (0.0-0.4) 01/13/18 06:35 Baso # 0.0 K/mm3 (0.0-0.1) 01/13/18 06:35 Add Manual Diff Complete 01/08/18 04:59 Seg Neutrophils % 66.0 % (40.0-70.0) 01/13/18 06:35 Seg Neutrophils # 4.1 K/mm3 (1.8-7.7) 01/13/18 06:35 PT 21.6 Sec. (12.2-14.9) H 01/14/18 06:51 INR 1.76 (0.87-1.13) H 01/14/18 06:51 POC ABG pH 7.433 (7.35-7.45) 01/09/18 10:43 POC ABG pCO2 41.7 (35-45) 01/09/18 10:43 POC ABG pO2 112 (80-105) H 01/09/18 10:43 POC ABG HCO3 27.9 01/09/18 10:43 POC ABG Total CO2 29 01/09/18 10:43 POC ABG O2 Sat 99 01/09/18 10:43 POC ABG Base Excess 4 01/09/18 10:43 FiO2 30 % 01/09/18 10:43 Sodium 143 mmol/L (137-145) 01/14/18 06:51 Potassium 3.2 mmol/L (3.6-5.0) L 01/14/18 06:51 Chloride 97.8 mmol/L (98-107) L 01/14/18 06:51 Carbon Dioxide 34 mmol/L (22-30) H 01/14/18 06:51 Anion Gap 14 mmol/L 01/14/18 06:51 BUN 9 mg/dL (9-20) 01/14/18 06:51 Creatinine 0.5 mg/dL (0.8-1.5) L 01/14/18 06:51 Estimated GFR > 60 ml/min 01/14/18 06:51 BUN/Creatinine Ratio 18 % 01/14/18 06:51 Glucose 102 mg/dL (75-100) H 01/14/18 06:51 Hemoglobin A1c 5.9 % (4-6) 01/08/18 00:09 Lactic Acid 1.10 mmol/L (0.7-2.0) 01/09/18 15:10 Calcium 8.4 mg/dL (8.4-10.2) 01/14/18 06:51 Total Bilirubin 0.30 mg/dL (0.1-1.2) 01/08/18 04:59 AST 31 units/L (5-40) 01/08/18 04:59 ALT 19 units/L (7-56) 01/08/18 04:59 Alkaline Phosphatase 77 units/L (35-129) 01/08/18 04:59 Troponin T < 0.010 ng/mL (0.00-0.029) 01/07/18 21:11 C-Reactive Protein 5.70 mg/dL (0.00-1.30) H 01/13/18 14:36 Total Protein 5.8 g/dL (6.3-8.2) L D 01/08/18 04:59 Albumin 3.0 g/dL (3.9-5) L 01/08/18 04:59 Albumin/Globulin Ratio 1.1 % 01/08/18 04:59 Urine Color Yellow (Yellow) 01/09/18 01:45 Urine Turbidity Hazy (Clear) 01/09/18 01:45 Urine pH 6.0 (5.0-7.0) 01/09/18 01:45 Ur Specific [place] 1.007 (1.003-1.030) 01/09/18 01:45 Urine Protein <15 mg/dl mg/dL (Negative) 01/09/18 01:45 Urine Glucose (UA) >=500 mg/dL (Negative) 01/09/18 01:45 Urine Ketones Neg mg/dL (Negative) 01/09/18 01:45 Urine Blood Neg (Negative) 01/09/18 01:45 Urine Nitrite Neg (Negative) 01/09/18 01:45 Urine Bilirubin Neg (Negative) 01/09/18 01:45 Urine Urobilinogen < 2.0 mg/dL (<2.0) 01/09/18 01:45 Ur Leukocyte Esterase Lg (Negative) 01/09/18 01:45 Urine WBC (Auto) 8.0 /HPF (0.0-6.0) H 01/09/18 01:45 Urine RBC (Auto) < 1.0 /HPF (0.0-6.0) 01/09/18 01:45 U Epithel Cells (Auto) < 1.0 /HPF (0-13.0) 01/09/18 01:45 Urine Bacteria (Auto) 1+ /HPF (Negative) 01/09/18 01:45 Urine Mucus Few /HPF 01/09/18 01:45 Vancomycin Trough 34.7 ug/mL (5.0-20.0) H 01/11/18 20:22 Urine Opiates Screen Presumptive negative 01/08/18 04:56 Urine Methadone Screen Presumptive negative 01/08/18 04:56 Ur Barbiturates Screen Presumptive negative 01/08/18 04:56 Carbamazepine 4.8 ug/mL (4-12) 01/07/18 20:04 Ur Phencyclidine Scrn Presumptive negative 01/08/18 04:56 Ur Amphetamines Screen Presumptive negative 01/08/18 04:56 U Benzodiazepines Scrn Presumptive negative 01/08/18 04:56 Urine Cocaine Screen Presumptive negative 01/08/18 04:56 U Marijuana (THC) Screen Presumptive negative 01/08/18 04:56 Drugs of Abuse Note Disclamer 01/08/18 04:56 Plasma/Serum Alcohol < 0.01 % (0-0.07) 01/07/18 20:04
[2018-01-14] MEDS ORDERED: DULCOLAX PR ONE ×2 (12:08→16:00)
--- NOTE | 2018-01-14 13:27 | Progress Note ---
Assessment and Plan Patient alert, awake. Resting on room air. O2 saturation 99%. No acute respiratory distress. - Patient Problems (1) Respiratory failure Current Visit: Yes Status: Acute Plan to address problem: S/P Extubation and presently on room air, O2 saturation 99% No acute respiratory distress. Albuterol/atrovent aerosol treatments q 6 hours. (2) Metabolic encephalopathy Current Visit: Yes Status: Acute Plan to address problem: Patient alert, awake. Following some commands at this time. (3) Status epilepticus Current Visit: Yes Status: Acute Plan to address problem: Management as per primary care and neurology. (4) Acute CHF Current Visit: No Status: Acute Plan to address problem: Management as per primary care and cardiology. (5) Acute bronchitis Current Visit: No Status: Acute Plan to address problem: Improved. Patient off the antibiotics. (6) Sepsis Current Visit: No Status: Acute Plan to address problem: Improved. Patient off the antibiotics. Subjective Date of service: 01/14/18 Principal diagnosis: Acute Hypoxemic respiratory failure; Aspiration Pneumonia; Seizures Interval history: Patient alert, awake. Resting on room air. O2 saturation 99%. No acute respiratory distress. Objective Vital Signs - 12hr 01/14/18 01/14/18 01/14/18 05:24 07:41 08:00 Temperature 98.2 F 98.5 F Pulse Rate 71 70 Pulse Rate [ Anterior Bilateral Throughout] Pulse Rate [ From Monitor] Respiratory 18 18 Rate Respiratory Rate [Anterior Bilateral Throughout] Blood Pressure 93/50 105/56 O2 Sat by Pulse 97 96 Oximetry 01/14/18 01/14/18 01/14/18 08:44 08:47 09:05 Temperature Pulse Rate Pulse Rate [ 81 89 Anterior Bilateral Throughout] Pulse Rate [ From Monitor] Respiratory Rate Respiratory 18 18 Rate [Anterior Bilateral Throughout] Blood Pressure O2 Sat by Pulse 93 Oximetry 01/14/18 10:00 Temperature Pulse Rate 70 Pulse Rate [ Anterior Bilateral Throughout] Pulse Rate [ 70 From Monitor] Respiratory Rate Respiratory Rate [Anterior Bilateral Throughout] Blood Pressure O2 Sat by Pulse Oximetry Constitutional: no acute distress, alert Eyes: non-icteric ENT: oropharynx moist, other (mallampatti 2) Neck: supple, no lymphadenopathy, no JVD, other (Right IJ CVL) Effort: normal Ascultation: Bilateral: diminished breath sounds, rhonchi Percussion: Bilateral: not dull Cardiovascular: regular rate and rhythm, murmur noted, other (paced, S1,S2, systolic murmur) Gastrointestinal: normoactive bowel sounds, soft, non-tender, non-distended, other (no hepatosplenomegally) Integumentary: normal Extremities: no cyanosis, no edema, pulses normal, no ischemia or petechiae Neurologic: normal mental status, non-focal exam, pupils equal and round, motor strength normal and Psychiatric: mood appropriate, affect normal CBC and BMP: 01/14/18 06:51 01/14/18 06:51 ABG, PT/INR, D-dimer: ABG POC ABG pH 7.433 (7.35-7.45) 01/09/18 10:43 POC ABG pCO2 41.7 (35-45) 01/09/18 10:43 POC ABG pO2 112 (80-105) H 01/09/18 10:43 POC ABG HCO3 27.9 01/09/18 10:43 POC ABG Total CO2 29 01/09/18 10:43 POC ABG O2 Sat 99 01/09/18 10:43 PT/INR, D-dimer PT 21.6 Sec. (12.2-14.9) H 01/14/18 06:51 INR 1.76 (0.87-1.13) H 01/14/18 06:51 Abnormal lab findings: Abnormal Labs 01/07/18 01/07/18 01/07/18 20:04 20:04 20:06 WBC 12.2 H RBC Hgb Hct 47.2 H MCV 95 H MCHC 31 L Plt Count Lymph % (Auto) [place] % (Auto) Eos % (Auto) Lymph # Seg Neutrophils % Seg Neutrophils # PT INR POC ABG pH 6.761 L POC ABG pCO2 54.0 H POC ABG pO2 208 H Sodium Potassium Chloride 92.3 L Carbon Dioxide 10 L BUN Creatinine Glucose 189 H Lactic Acid Calcium C-Reactive Protein Total Protein 8.3 H Albumin Urine WBC (Auto) Vancomycin Trough 01/07/18 01/07/18 01/08/18 21:11 21:46 04:21 WBC RBC Hgb Hct MCV MCHC Plt Count Lymph % (Auto) [place] % (Auto) Eos % (Auto) Lymph # Seg Neutrophils % Seg Neutrophils # PT INR POC ABG pH 7.067 L 7.479 H POC ABG pCO2 28.3 L POC ABG pO2 196 H 160 H Sodium Potassium Chloride Carbon Dioxide BUN Creatinine Glucose Lactic Acid < 0.20 L Calcium C-Reactive Protein Total Protein Albumin Urine WBC (Auto) Vancomycin Trough 01/08/18 01/08/18 01/08/18 04:59 04:59 07:41 WBC RBC Hgb Hct MCV MCHC Plt Count 139 L Lymph % (Auto) 7.0 L [place] % (Auto) Eos % (Auto) Lymph # 0.7 L Seg Neutrophils % 87.7 H Seg Neutrophils # 8.4 H PT 49.1 H INR 4.87 H POC ABG pH POC ABG pCO2 POC ABG pO2 Sodium 135 L Potassium Chloride Carbon Dioxide 14 L BUN 8 L Creatinine Glucose 186 H Lactic Acid Calcium 7.8 L D C-Reactive Protein Total Protein 5.8 L D Albumin 3.0 L Urine WBC (Auto) Vancomycin Trough 01/08/18 01/09/18 01/09/18 13:34 01:09 01:45 WBC RBC Hgb Hct MCV MCHC Plt Count Lymph % (Auto) [place] % (Auto) Eos % (Auto) Lymph # Seg Neutrophils % Seg Neutrophils # PT INR POC ABG pH POC ABG pCO2 POC ABG pO2 Sodium Potassium Chloride Carbon Dioxide BUN Creatinine Glucose Lactic Acid 2.10 H* Calcium C-Reactive Protein 6.40 H Total Protein Albumin Urine WBC (Auto) 8.0 H Vancomycin Trough 01/09/18 01/09/18 01/09/18 04:05 04:09 04:09 WBC RBC Hgb Hct MCV MCHC Plt Count Lymph % (Auto) [place] % (Auto) Eos % (Auto) Lymph # Seg Neutrophils % Seg Neutrophils # PT 54.5 H INR 5.54 H* POC ABG pH POC ABG pCO2 POC ABG pO2 185 H Sodium Potassium Chloride Carbon Dioxide BUN Creatinine Glucose Lactic Acid 3.90 H* Calcium C-Reactive Protein Total Protein Albumin Urine WBC (Auto) Vancomycin Trough 01/09/18 01/09/18 01/10/18 10:43 19:20 05:00 WBC RBC Hgb Hct MCV MCHC Plt Count Lymph % (Auto) [place] % (Auto) Eos % (Auto) Lymph # Seg Neutrophils % Seg Neutrophils # PT 38.7 H INR 3.62 H POC ABG pH POC ABG pCO2 POC ABG pO2 112 H Sodium Potassium Chloride Carbon Dioxide BUN Creatinine Glucose Lactic Acid Calcium C-Reactive Protein 9.70 H Total Protein Albumin Urine WBC (Auto) Vancomycin Trough 01/11/18 01/11/18 01/11/18 06:12 06:12 06:12 WBC RBC 3.27 L Hgb 9.7 L Hct 28.7 L MCV MCHC Plt Count 124 L Lymph % (Auto) 11.6 L [place] % (Auto) Eos % (Auto) Lymph # 0.6 L Seg Neutrophils % 78.9 H Seg Neutrophils # PT 34.2 H INR 3.11 H POC ABG pH POC ABG pCO2 POC ABG pO2 Sodium Potassium 2.9 L* D Chloride Carbon Dioxide BUN 5 L Creatinine 0.7 L Glucose 102 H Lactic Acid Calcium 8.2 L C-Reactive Protein Total Protein Albumin Urine WBC (Auto) Vancomycin Trough 01/11/18 01/12/18 01/12/18 20:22 07:19 07:19 WBC RBC 3.42 L Hgb 10.2 L Hct 30.3 L MCV MCHC Plt Count Lymph % (Auto) [place] % (Auto) 9.5 H Eos % (Auto) 6.8 H Lymph # 0.9 L Seg Neutrophils % Seg Neutrophils # PT 24.3 H INR 2.04 H POC ABG pH POC ABG pCO2 POC ABG pO2 Sodium Potassium Chloride Carbon Dioxide BUN Creatinine Glucose Lactic Acid Calcium C-Reactive Protein Total Protein Albumin Urine WBC (Auto) Vancomycin Trough 34.7 H 01/12/18 01/13/18 01/13/18 07:19 06:35 06:35 WBC RBC 3.56 L Hgb 10.5 L Hct 31.4 L MCV MCHC Plt Count Lymph % (Auto) [place] % (Auto) 10.6 H Eos % (Auto) 7.2 H Lymph # 1.0 L Seg Neutrophils % Seg Neutrophils # PT 18.8 H INR 1.48 H POC ABG pH POC ABG pCO2 POC ABG pO2 Sodium Potassium 3.0 L Chloride Carbon Dioxide 34 H BUN 5 L Creatinine 0.6 L Glucose 105 H Lactic Acid Calcium 8.0 L C-Reactive Protein Total Protein Albumin Urine WBC (Auto) Vancomycin Trough 01/13/18 01/13/18 01/14/18 06:35 14:36 06:51 WBC RBC Hgb Hct MCV MCHC Plt Count Lymph % (Auto) [place] % (Auto) Eos % (Auto) Lymph # Seg Neutrophils % Seg Neutrophils # PT 21.6 H INR 1.76 H POC ABG pH POC ABG pCO2 POC ABG pO2 Sodium Potassium 3.2 L Chloride Carbon Dioxide 34 H BUN 7 L Creatinine 0.5 L Glucose Lactic Acid Calcium C-Reactive Protein 5.70 H Total Protein Albumin Urine WBC (Auto) Vancomycin Trough 01/14/18 01/14/18 06:51 06:51 WBC 4.0 L RBC 3.60 L Hgb 10.8 L Hct 31.9 L MCV MCHC Plt Count Lymph % (Auto) [place] % (Auto) Eos % (Auto) Lymph # Seg Neutrophils % Seg Neutrophils # PT INR POC ABG pH POC ABG pCO2 POC ABG pO2 Sodium Potassium 3.2 L Chloride 97.8 L Carbon Dioxide 34 H BUN Creatinine 0.5 L Glucose 102 H Lactic Acid Calcium C-Reactive Protein Total Protein Albumin Urine WBC (Auto) Vancomycin Trough Chest x-ray: report reviewed (Cardiomegaly and mild improvement pulmonary venous congestion.), image reviewed Allied health notes reviewed: RT
--- NOTE | 2018-01-14 14:02 | Progress Note ---
Assessment and Plan - Patient Problems (1) Nonischemic cardiomyopathy Current Visit: No Status: Acute Plan to address problem: Patient admitted with seizure episode. He has a history of nonischemic cardiomyopathy and ICD in situ. ICD interrogation on this presentation was negative. He has paroxysmal atrial fibrillation on chronic oral anticoagulation therapy. Cardiac status is stable. Subjective Date of service: 01/14/18 Principal diagnosis: Acute Hypoxemic respiratory failure; Aspiration Pneumonia; Seizures Interval history: Patient is comfortable, no cardiac complaints. Objective Vital Signs Temp Pulse Pulse Pulse Pulse Resp Resp 01/14/18 12:16 80 18 01/14/18 12:00 98.9 F 01/14/18 10:00 70 70 01/14/18 09:05 89 18 01/14/18 08:47 01/14/18 08:44 81 18 01/14/18 08:00 98.5 F 01/14/18 07:41 70 18 01/14/18 05:24 98.2 F 71 18 01/13/18 23:51 70 20 01/13/18 23:27 98.0 F 76 18 01/13/18 22:00 70 01/13/18 19:52 98.3 F 72 18 01/13/18 15:47 98.2 F 71 18 BP Pulse Ox 01/14/18 12:16 101/60 98 01/14/18 12:00 01/14/18 10:00 01/14/18 09:05 01/14/18 08:47 93 01/14/18 08:44 01/14/18 08:00 01/14/18 07:41 105/56 96 01/14/18 05:24 93/50 97 01/13/18 23:51 01/13/18 23:27 102/53 96 01/13/18 22:00 01/13/18 19:52 102/47 100 01/13/18 15:47 96/47 97 - Physical Examination General: No Apparent Distress HEENT: Positive: PERRL Neck: Positive: neck supple Cardiac: Positive: Reg Rate and Rhythm Lungs: Positive: Decreased Breath Sounds Neuro: Positive: Grossly Intact Abdomen: Positive: Soft Skin: Positive: Clear Extremities: Absent: edema - Labs and Meds Coagulation 01/14/18 Range/Units 06:51 PT 21.6 H (12.2-14.9) Sec. INR 1.76 H (0.87-1.13) CBC 01/14/18 Range/Units 06:51 WBC 4.0 L (4.5-11.0) K/mm3 RBC 3.60 L (3.65-5.03) M/mm3 Hgb 10.8 L (11.8-15.2) gm/dl Hct 31.9 L (35.5-45.6) % Plt Count 191 (140-440) K/mm3 Comprehensive Metabolic Panel 01/14/18 Range/Units 06:51 Sodium 143 (137-145) mmol/L Potassium 3.2 L (3.6-5.0) mmol/L Chloride 97.8 L (98-107) mmol/L Carbon Dioxide 34 H (22-30) mmol/L BUN 9 (9-20) mg/dL Creatinine 0.5 L (0.8-1.5) mg/dL Glucose 102 H (75-100) mg/dL Calcium 8.4 (8.4-10.2) mg/dL - Imaging and Cardiology EKG: report reviewed (Ventricular paced rhythm 70/min) - Allied health notes Allied health notes reviewed: RT
[2018-01-14] MEDS: COUMADIN PO SCH (17:58)
[2018-01-15] MEDS ORDERED: NACL 0.9% 250ML 250 ML IV ONE (06:24)
[2018-01-15 06:48] LABS: INR 2.13 (0.87-1.13)
[2018-01-15] MEDS: KEPPRA PO SCH ×5 (06:49→23:06)
[2018-01-15 06:50] LABS: Hematocrit 35.1 % (35.5-45.6); Hemoglobin 11.8 gm/dl (11.8-15.2); Mean Corpuscular HGB Conc 34 % (32-34); Mean Corpuscular Hemoglobin 30 pg (28-32); Mean Corpuscular Volume 89 fl (84-94); Platelet Count 225 K/mm3 (140-440); Red Blood Count 3.96 M/mm3 (3.65-5.03); Red Cell Distribution Width 14.7 % (13.2-15.2)
[2018-01-15 07:02] LABS: BUN/Creatinine Ratio 15; Blood Urea Nitrogen 9 mg/dL (9-20); Calcium 8.9 mg/dL (8.4-10.2); Hemolysis Index 5
[2018-01-15] MEDS: DUONEB *Not for PRN Use IH SCH ×3 (08:27→20:53)
--- NOTE | 2018-01-15 10:11 | Gastroenterology Consultation ---
History of Present Illness - Reason for Consult Consult date: 01/15/18 intractable N/V Requesting physician: KURT TREVIZO - History of Present Illness Patient is a 37 y/o male with PMH of CVA, CHF, and A-fib who was admitted on for recurrent seizures. GI has been consulted for intractable N/V. This morning patient was resting in bed w/o acute distress. He reports nausea with one episode of vomiting 2 days ago. States he is now feeling better with N/V resolved. Tolerating clear liquids. Admits to constipation but denies CP, SOB, abd pain, dysphagia, odynophagia, signs of bleeding, or diarrhea. Past History Past Medical History: atrial fib, heart failure, seizures, stroke (indicates the area of right frontal lobe damage was a stroke not an injury) Past Surgical History: Other (pacemaker/defibrillator) Social history: other (cannot get further details since intubated). denies: smoking, alcohol abuse, prescription drug abuse, IV drug use Family history: denies: hypertension, stroke, other (no family history of epilepsy) Medications and Allergies Allergies Allergy/AdvReac Type Severity Reaction Status Date / Time No Known Allergies Allergy Verified 05/28/16 14:33 Home Medications Medication Instructions Recorded Confirmed Last Taken Type Aspirin [Aspirin BABY CHEW TAB] 81 mg PO QDAY 09/13/16 01/11/18 Unknown History Famotidine [Pepcid] 1 tab PO DAILY #30 tablet 09/17/16 01/11/18 Unknown Rx carBAMazepine [TEGretol] 100 mg PO BID #60 tab.chew 09/17/16 01/11/18 Unknown Rx levETIRAcetam [Keppra TAB] 750 mg PO BID #60 tablet 09/17/16 01/11/18 Unknown Rx Carvedilol [Coreg] 3.125 mg PO BID 10/13/17 01/11/18 Unknown History Lisinopril [Prinivil] 10 mg PO DAILY 10/13/17 01/11/18 Unknown History Sertraline [Zoloft] 25 mg PO QDAY 10/13/17 01/11/18 Unknown History Warfarin [Coumadin] 7.5 mg PO DAILY 10/13/17 01/11/18 Unknown History Active Meds: Active Medications Acetaminophen (Tylenol) 650 mg PO Q4H PRN PRN Reason: Pain MILD(1-3)/Fever >100.5/[place] Last Admin: 01/12/18 15:10 Dose: 650 mg Albuterol (Proventil) 2.5 mg IH Q4HRT PRN PRN Reason: Shortness Of Breath Albuterol/Ipratropium (Duoneb *Not For Prn Use*) 1 ampul IH TIDRT [facility] Last Admin: 01/15/18 08:27 Dose: 1 ampul Lipase/Protease/Amylase (Pancreadryan Dr 10,500 Unit) 1 each FEEDTUBE PRN PRN PRN Reason: For Clogged Feeding Tube Aspirin (Baby Aspirin) 81 mg PO QDAY [facility] Last Admin: 01/14/18 10:14 Dose: 81 mg Carbamazepine (Tegretol) 200 mg FEEDTUBE QID [facility] Last Admin: 01/14/18 21:55 Dose: 200 mg Carvedilol (Coreg) 3.125 mg PO BID [facility] Last Admin: 01/14/18 22:00 Dose: Not Given Famotidine (Pepcid) 20 mg PO DAILY [facility] Last Admin: 01/14/18 10:14 Dose: 20 mg Hydrophilic Ointment (Vaseline Lip Therapy) 1 applic TP Q2HR PRN PRN Reason: Dry Lips Sodium Chloride (Nacl 0.9% 1000 Ml) 1,000 mls @ 100 mls/hr IV DIRECT [facility] Levetiracetam (Keppra) 500 mg PO Q6HR [facility] Last Admin: 01/15/18 06:49 Dose: 500 mg Lorazepam (Ativan) 2 mg IV Q4H PRN PRN Reason: Agitation Morphine Sulfate (Morphine) 2 mg IV Q4H PRN PRN Reason: Pain, Moderate (4-6) Last Admin: 01/14/18 04:24 Dose: 2 mg Multi-Ingred Cream/Lotion/Oil/Oint (Artificial Tears Ophth Oint) 1 applic OU Q4HR PRN PRN Reason: Dry Eye(s) Ondansetron HCl (Zofran) 4 mg IV Q8H PRN PRN Reason: Nausea And Vomiting Last Admin: 01/13/18 21:14 Dose: 4 mg Potassium Chloride (K-Dur) 20 meq PO QDAY [facility] Last Admin: 01/14/18 10:14 Dose: 20 meq Sertraline HCl (Zoloft) 25 mg PO QDAY [facility] Last Admin: 01/14/18 10:14 Dose: 25 mg Simple Syrup (Simple Syrup) 15 ml FEEDTUBE PRN PRN PRN Reason: Hypoglycemia Simple Syrup (Simple Syrup) 30 ml FEEDTUBE PRN PRN PRN Reason: Hypoglycemia Sodium Bicarbonate (Sodium Bicarbonate) 325 mg FEEDTUBE PRN PRN PRN Reason: For Clogged Feeding Tube Sodium Chloride (Nacl 0.9% 500 Ml) 1 ml IV DIRECT [facility] Last Admin: 01/08/18 13:58 Dose: 1 ml Sodium Chloride (Sodium Chloride Flush Syringe 10 Ml) 10 ml IV BID [facility] Last Admin: 01/14/18 21:57 Dose: 10 ml Sodium Chloride (Sodium Chloride Flush Syringe 10 Ml) 10 ml IV PRN PRN PRN Reason: LINE FLUSH Last Admin: 01/08/18 22:09 Dose: 10 ml Warfarin Sodium (Coumadin Pharmacy To Dose) 1 each PO PKCONSULT [facility] Warfarin Sodium (Coumadin) 5 mg PO DAILY@1700 [facility] Last Admin: 01/14/18 17:58 Dose: 5 mg Review of Systems - Review of Systems All systems: negative Gastrointestinal: nausea, vomiting Exam - Constitutional Vital Signs: Temp Pulse Resp BP Pulse Ox 97.6 F 70 18 92/52 96 01/15/18 08:13 01/15/18 08:13 01/15/18 08:13 01/15/18 08:13 01/15/18 08:13 General appearance: no acute distress - Respiratory Respiratory: bilateral: CTA (anterior) - Cardiovascular Rhythm: regular Heart Sounds: Present: S1 & S2 - Gastrointestinal General gastrointestinal: Present: soft, non-tender, non-distended, normal bowel sounds - Labs CBC & Chem 7: 01/15/18 05:40 01/15/18 05:40 Lab Results: Laboratory Results - last 24 hr 01/15/18 01/15/18 01/15/18 05:40 05:40 05:40 WBC 3.1 L RBC 3.96 Hgb 11.8 Hct 35.1 L MCV 89 MCH 30 MCHC 34 RDW 14.7 Plt Count 225 PT 25.2 H INR 2.13 H Sodium 140 Potassium 3.7 Chloride 96.1 L Carbon Dioxide 32 H Anion Gap 16 BUN 9 Creatinine 0.6 L Estimated GFR > 60 BUN/Creatinine Ratio 15 Glucose 90 Calcium 8.9 Assessment and Plan 1.N/V -resolved -tolerating clears -okay to advance diet -no plans for scope at this time -continue supportive care -once tolerating PO, okay be d/c per GI standpoint 2.constipation -start on daily Miralax
[2018-01-15] MEDS: COREG PO SCH ×3 (10:15→22:55)
[2018-01-15] MEDS: PEPCID PO SCH (10:15)
[2018-01-15] MEDS: K-DUR PO SCH (10:16)
[2018-01-15] MEDS: ZOLOFT PO SCH (10:16)
[2018-01-15] MEDS: BABY ASPIRIN PO SCH (10:18)
--- NOTE | 2018-01-15 11:59 | Progress Note ---
Assessment and Plan Non-ischemic cardiomyopathy, LVEF 35-40% SC AICD, normal function Seizure disorder Paroxysmal atrial fibrillation on coumadin with a therapeutic INR Nausea and vomiting Recommendations: Continue current management No new cardiac recommendations Subjective Date of service: 01/15/18 Principal diagnosis: Acute Hypoxemic respiratory failure; Aspiration Pneumonia; Seizures Interval history: No cardiac events overnight Objective Vital Signs Temp Pulse Pulse Resp Resp BP BP 01/15/18 08:13 97.6 F 70 18 92/52 01/15/18 06:31 98.5 F 86 18 84/48 01/15/18 01:37 9.1 F L 73 18 108/61 01/14/18 21:16 20 01/14/18 21:04 68 18 01/14/18 20:50 69 18 01/14/18 20:42 98.1 F 70 20 92/45 01/14/18 16:23 70 18 86/45 01/14/18 16:00 98.2 F 01/14/18 14:59 69 18 01/14/18 14:38 69 18 01/14/18 12:16 80 18 101/60 01/14/18 12:00 98.9 F Pulse Ox 01/15/18 08:13 96 01/15/18 06:31 01/15/18 01:37 100 01/14/18 21:16 01/14/18 21:04 01/14/18 20:50 98 01/14/18 20:42 100 01/14/18 16:23 99 01/14/18 16:00 01/14/18 14:59 01/14/18 14:38 01/14/18 12:16 98 01/14/18 12:00 - Physical Examination General: No Apparent Distress HEENT: Positive: PERRL Neck: Positive: neck supple Cardiac: Positive: Reg Rate and Rhythm Lungs: Positive: Normal Exam Neuro: Positive: Grossly Intact Abdomen: Positive: Soft Skin: Positive: Clear Extremities: Absent: edema - Labs and Meds Coagulation 01/15/18 Range/Units 05:40 PT 25.2 H (12.2-14.9) Sec. INR 2.13 H (0.87-1.13) CBC 01/15/18 Range/Units 05:40 WBC 3.1 L (4.5-11.0) K/mm3 RBC 3.96 (3.65-5.03) M/mm3 Hgb 11.8 (11.8-15.2) gm/dl Hct 35.1 L (35.5-45.6) % Plt Count 225 (140-440) K/mm3 Comprehensive Metabolic Panel 01/15/18 Range/Units 05:40 Sodium 140 (137-145) mmol/L Potassium 3.7 (3.6-5.0) mmol/L Chloride 96.1 L (98-107) mmol/L Carbon Dioxide 32 H (22-30) mmol/L BUN 9 (9-20) mg/dL Creatinine 0.6 L (0.8-1.5) mg/dL Glucose 90 (75-100) mg/dL Calcium 8.9 (8.4-10.2) mg/dL - Imaging and Cardiology EKG: report reviewed (Ventricular paced rhythm 70/min) - Allied health notes Allied health notes reviewed: RT
--- NOTE | 2018-01-15 13:30 | Progress Note ---
Assessment and Plan Patient alert, awake. Resting on room air. O2 saturation 99%. No acute respiratory distress. - Patient Problems (1) Respiratory failure Current Visit: Yes Status: Acute Plan to address problem: S/P Extubation and presently on room air, O2 saturation 99% No acute respiratory distress. Albuterol/atrovent aerosol treatments q 6 hours. (2) Metabolic encephalopathy Current Visit: Yes Status: Acute Plan to address problem: Appears some improvement.Patient alert, awake. Following some commands at this time. (3) Status epilepticus Current Visit: Yes Status: Acute Plan to address problem: Management as per primary care and neurology. (4) Acute CHF Current Visit: No Status: Acute Plan to address problem: Management as per primary care and cardiology. (5) Acute bronchitis Current Visit: No Status: Acute Plan to address problem: Improved. Patient off the antibiotics. (6) Sepsis Current Visit: No Status: Acute Plan to address problem: Improved. Patient off the antibiotics. Subjective Date of service: 01/15/18 Principal diagnosis: Acute Hypoxemic respiratory failure; Aspiration Pneumonia; Seizures Interval history: Patient alert, awake. Resting on room air. O2 saturation 99%. No acute respiratory distress. Objective Vital Signs - 12hr 01/15/18 01/15/18 01/15/18 01:37 06:31 08:13 Temperature 9.1 F L 98.5 F 97.6 F Pulse Rate 73 86 70 Respiratory 18 18 18 Rate Blood Pressure 108/61 84/48 92/52 [Left] O2 Sat by Pulse 100 96 Oximetry 01/15/18 12:13 Temperature 97.6 F Pulse Rate 71 Respiratory 18 Rate Blood Pressure 99/64 [Left] O2 Sat by Pulse 95 Oximetry Constitutional: no acute distress, alert Eyes: non-icteric ENT: oropharynx moist, other (mallampatti 2) Neck: supple, no lymphadenopathy, no JVD, other (Right IJ CVL) Effort: normal Ascultation: Bilateral: diminished breath sounds Percussion: Bilateral: not dull Cardiovascular: regular rate and rhythm, murmur noted, other (paced, S1,S2, systolic murmur) Gastrointestinal: normoactive bowel sounds, soft, non-tender, non-distended, other (no hepatosplenomegally) Integumentary: normal Extremities: no cyanosis, no edema, pulses normal, no ischemia or petechiae Neurologic: normal mental status, non-focal exam, pupils equal and round, motor strength normal and Psychiatric: mood appropriate, affect normal CBC and BMP: 01/15/18 05:40 01/15/18 05:40 ABG, PT/INR, D-dimer: ABG POC ABG pH 7.433 (7.35-7.45) 01/09/18 10:43 POC ABG pCO2 41.7 (35-45) 01/09/18 10:43 POC ABG pO2 112 (80-105) H 01/09/18 10:43 POC ABG HCO3 27.9 01/09/18 10:43 POC ABG Total CO2 29 01/09/18 10:43 POC ABG O2 Sat 99 01/09/18 10:43 PT/INR, D-dimer PT 25.2 Sec. (12.2-14.9) H 01/15/18 05:40 INR 2.13 (0.87-1.13) H 01/15/18 05:40 Abnormal lab findings: Abnormal Labs 01/07/18 01/07/18 01/07/18 20:04 20:04 20:06 WBC 12.2 H RBC Hgb Hct 47.2 H MCV 95 H MCHC 31 L Plt Count Lymph % (Auto) [place] % (Auto) Eos % (Auto) Lymph # Seg Neutrophils % Seg Neutrophils # PT INR POC ABG pH 6.761 L POC ABG pCO2 54.0 H POC ABG pO2 208 H Sodium Potassium Chloride 92.3 L Carbon Dioxide 10 L BUN Creatinine Glucose 189 H Lactic Acid Calcium C-Reactive Protein Total Protein 8.3 H Albumin Urine WBC (Auto) Vancomycin Trough 01/07/18 01/07/18 01/08/18 21:11 21:46 04:21 WBC RBC Hgb Hct MCV MCHC Plt Count Lymph % (Auto) [place] % (Auto) Eos % (Auto) Lymph # Seg Neutrophils % Seg Neutrophils # PT INR POC ABG pH 7.067 L 7.479 H POC ABG pCO2 28.3 L POC ABG pO2 196 H 160 H Sodium Potassium Chloride Carbon Dioxide BUN Creatinine Glucose Lactic Acid < 0.20 L Calcium C-Reactive Protein Total Protein Albumin Urine WBC (Auto) Vancomycin Trough 01/08/18 01/08/18 01/08/18 04:59 04:59 07:41 WBC RBC Hgb Hct MCV MCHC Plt Count 139 L Lymph % (Auto) 7.0 L [place] % (Auto) Eos % (Auto) Lymph # 0.7 L Seg Neutrophils % 87.7 H Seg Neutrophils # 8.4 H PT 49.1 H INR 4.87 H POC ABG pH POC ABG pCO2 POC ABG pO2 Sodium 135 L Potassium Chloride Carbon Dioxide 14 L BUN 8 L Creatinine Glucose 186 H Lactic Acid Calcium 7.8 L D C-Reactive Protein Total Protein 5.8 L D Albumin 3.0 L Urine WBC (Auto) Vancomycin Trough 01/08/18 01/09/18 01/09/18 13:34 01:09 01:45 WBC RBC Hgb Hct MCV MCHC Plt Count Lymph % (Auto) [place] % (Auto) Eos % (Auto) Lymph # Seg Neutrophils % Seg Neutrophils # PT INR POC ABG pH POC ABG pCO2 POC ABG pO2 Sodium Potassium Chloride Carbon Dioxide BUN Creatinine Glucose Lactic Acid 2.10 H* Calcium C-Reactive Protein 6.40 H Total Protein Albumin Urine WBC (Auto) 8.0 H Vancomycin Trough 01/09/18 01/09/18 01/09/18 04:05 04:09 04:09 WBC RBC Hgb Hct MCV MCHC Plt Count Lymph % (Auto) [place] % (Auto) Eos % (Auto) Lymph # Seg Neutrophils % Seg Neutrophils # PT 54.5 H INR 5.54 H* POC ABG pH POC ABG pCO2 POC ABG pO2 185 H Sodium Potassium Chloride Carbon Dioxide BUN Creatinine Glucose Lactic Acid 3.90 H* Calcium C-Reactive Protein Total Protein Albumin Urine WBC (Auto) Vancomycin Trough 01/09/18 01/09/18 01/10/18 10:43 19:20 05:00 WBC RBC Hgb Hct MCV MCHC Plt Count Lymph % (Auto) [place] % (Auto) Eos % (Auto) Lymph # Seg Neutrophils % Seg Neutrophils # PT 38.7 H INR 3.62 H POC ABG pH POC ABG pCO2 POC ABG pO2 112 H Sodium Potassium Chloride Carbon Dioxide BUN Creatinine Glucose Lactic Acid Calcium C-Reactive Protein 9.70 H Total Protein Albumin Urine WBC (Auto) Vancomycin Trough 01/11/18 01/11/18 01/11/18 06:12 06:12 06:12 WBC RBC 3.27 L Hgb 9.7 L Hct 28.7 L MCV MCHC Plt Count 124 L Lymph % (Auto) 11.6 L [place] % (Auto) Eos % (Auto) Lymph # 0.6 L Seg Neutrophils % 78.9 H Seg Neutrophils # PT 34.2 H INR 3.11 H POC ABG pH POC ABG pCO2 POC ABG pO2 Sodium Potassium 2.9 L* D Chloride Carbon Dioxide BUN 5 L Creatinine 0.7 L Glucose 102 H Lactic Acid Calcium 8.2 L C-Reactive Protein Total Protein Albumin Urine WBC (Auto) Vancomycin Trough 01/11/18 01/12/18 01/12/18 20:22 07:19 07:19 WBC RBC 3.42 L Hgb 10.2 L Hct 30.3 L MCV MCHC Plt Count Lymph % (Auto) [place] % (Auto) 9.5 H Eos % (Auto) 6.8 H Lymph # 0.9 L Seg Neutrophils % Seg Neutrophils # PT 24.3 H INR 2.04 H POC ABG pH POC ABG pCO2 POC ABG pO2 Sodium Potassium Chloride Carbon Dioxide BUN Creatinine Glucose Lactic Acid Calcium C-Reactive Protein Total Protein Albumin Urine WBC (Auto) Vancomycin Trough 34.7 H 01/12/18 01/13/18 01/13/18 07:19 06:35 06:35 WBC RBC 3.56 L Hgb 10.5 L Hct 31.4 L MCV MCHC Plt Count Lymph % (Auto) [place] % (Auto) 10.6 H Eos % (Auto) 7.2 H Lymph # 1.0 L Seg Neutrophils % Seg Neutrophils # PT 18.8 H INR 1.48 H POC ABG pH POC ABG pCO2 POC ABG pO2 Sodium Potassium 3.0 L Chloride Carbon Dioxide 34 H BUN 5 L Creatinine 0.6 L Glucose 105 H Lactic Acid Calcium 8.0 L C-Reactive Protein Total Protein Albumin Urine WBC (Auto) Vancomycin Trough 01/13/18 01/13/18 01/14/18 06:35 14:36 06:51 WBC RBC Hgb Hct MCV MCHC Plt Count Lymph % (Auto) [place] % (Auto) Eos % (Auto) Lymph # Seg Neutrophils % Seg Neutrophils # PT 21.6 H INR 1.76 H POC ABG pH POC ABG pCO2 POC ABG pO2 Sodium Potassium 3.2 L Chloride Carbon Dioxide 34 H BUN 7 L Creatinine 0.5 L Glucose Lactic Acid Calcium C-Reactive Protein 5.70 H Total Protein Albumin Urine WBC (Auto) Vancomycin Trough 01/14/18 01/14/18 01/15/18 06:51 06:51 05:40 WBC 4.0 L RBC 3.60 L Hgb 10.8 L Hct 31.9 L MCV MCHC Plt Count Lymph % (Auto) [place] % (Auto) Eos % (Auto) Lymph # Seg Neutrophils % Seg Neutrophils # PT 25.2 H INR 2.13 H POC ABG pH POC ABG pCO2 POC ABG pO2 Sodium Potassium 3.2 L Chloride 97.8 L Carbon Dioxide 34 H BUN Creatinine 0.5 L Glucose 102 H Lactic Acid Calcium C-Reactive Protein Total Protein Albumin Urine WBC (Auto) Vancomycin Trough 01/15/18 01/15/18 05:40 05:40 WBC 3.1 L RBC Hgb Hct 35.1 L MCV MCHC Plt Count Lymph % (Auto) [place] % (Auto) Eos % (Auto) Lymph # Seg Neutrophils % Seg Neutrophils # PT INR POC ABG pH POC ABG pCO2 POC ABG pO2 Sodium Potassium Chloride 96.1 L Carbon Dioxide 32 H BUN Creatinine 0.6 L Glucose Lactic Acid Calcium C-Reactive Protein Total Protein Albumin Urine WBC (Auto) Vancomycin Trough Allied health notes reviewed: RT
--- NOTE | 2018-01-15 13:58 | Progress Note ---
Assessment and Plan Assessment and plan: Mr. Zee is 37 yo man with a history of hypertension, cva, chf, seizures, dementia who presents with AMS after multiple seizures -Acute Encephalopathy: Sec to Seizures, IV Keppra -SIRS, poa with early sepsis due to aspiration pneumonitis: treated with abx, d/ c Cefepime -Status Epilepticus s/p Intubation and Extubation: IV Keppra, IV Ativan prn -Hyperglycemia: Check A1c==>normal -HTN: adjust -Depression: Sertraline -p.Afib/aflutter: cont Warfarin with monitoring -DVT prophylaxis: on Warfarin -Acute on chronic systolic Decompensated heart failure, resolved: -Acute LUE SVT: already of Warfarin -Non ischemic Cardiomyopathy, normal coronaries by [facility] 10/2014, EF 35-40% by echo this admission -Single chamber ICD ([employer]): interrogated -History of CVA/ Prior right MCA/CVA -Hypokalemia: replace and recheck n/v yesterday obtained KUB==>unremarkable except Constipation, Lactulose did not help and patient is still nauseated: plan, give dulcolax suppository, start clear liquids, consult GI for intractable nausea. Once n/v resolved, home with oral keppra. N/V resolved, GI evaluated and doesn't plan on any procedure, ordered daily Miralax. Overnight patient had episodes of hypotension 84/48, received 2 IV normal saline boluses of 250mg . Stopped iv lasix 60mg, stopped Lisinopril continue coreg 3.125mg bid. Recheck bp If bp stabilized will discharge History Interval history: Patient was seen and examined. Follow-up on current diagnosis of sz, resolved and n/v resolved since diet downgraded. Overnight eventful with episode of hypotension. Imaging, nursing note, chart, labs and old chart reviewed. Hospitalist Physical - Physical exam Narrative exam: GEN: WDWN, NAD, Awake, Alert, confused HEENT: NCAT, EOMI, PERRL, OP Clear NECK: supple, no adenopathy, no thyromegaly, no JVD CVS/HEART: irreg irregular, normal S1S2, pulses present bilaterally CHEST/LUNGS: CTA B, Symmetrical chest expansion, good air entry bilaterally GI/Abdomen: soft, NTND, good bowel sounds, no guarding or rebound /Bladder: no suprapubic tenderness, no CVA or paraspinal tenderness EXT/Skin: no c/c/e, no obvious rash Neuro: CN 2-12 grossly intact, doesn't follow commands Psych: calm - Constitutional Vitals: Temp Pulse Resp BP Pulse Ox 97.6 F 71 18 99/64 95 01/15/18 12:13 01/15/18 12:13 01/15/18 12:13 01/15/18 12:13 01/15/18 12:13 General appearance: Present: no acute distress Results - Labs CBC & Chem 7: 01/15/18 05:40 01/15/18 05:40 Labs: Laboratory Last Values WBC 3.1 K/mm3 (4.5-11.0) L 01/15/18 05:40 RBC 3.96 M/mm3 (3.65-5.03) 01/15/18 05:40 Hgb 11.8 gm/dl (11.8-15.2) 01/15/18 05:40 Hct 35.1 % (35.5-45.6) L 01/15/18 05:40 MCV 89 fl (84-94) 01/15/18 05:40 MCH 30 pg (28-32) 01/15/18 05:40 MCHC 34 % (32-34) 01/15/18 05:40 RDW 14.7 % (13.2-15.2) 01/15/18 05:40 Plt Count 225 K/mm3 (140-440) 01/15/18 05:40 Lymph % (Auto) 15.7 % (13.4-35.0) 01/13/18 06:35 [place] % (Auto) 10.6 % (0.0-7.3) H 01/13/18 06:35 Eos % (Auto) 7.2 % (0.0-4.3) H 01/13/18 06:35 Baso % (Auto) 0.5 % (0.0-1.8) 01/13/18 06:35 Lymph # 1.0 K/mm3 (1.2-5.4) L 01/13/18 06:35 [place] # 0.7 K/mm3 (0.0-0.8) 01/13/18 06:35 Eos # 0.4 K/mm3 (0.0-0.4) 01/13/18 06:35 Baso # 0.0 K/mm3 (0.0-0.1) 01/13/18 06:35 Add Manual Diff Complete 01/08/18 04:59 Seg Neutrophils % 66.0 % (40.0-70.0) 01/13/18 06:35 Seg Neutrophils # 4.1 K/mm3 (1.8-7.7) 01/13/18 06:35 PT 25.2 Sec. (12.2-14.9) H 01/15/18 05:40 INR 2.13 (0.87-1.13) H 01/15/18 05:40 POC ABG pH 7.433 (7.35-7.45) 01/09/18 10:43 POC ABG pCO2 41.7 (35-45) 01/09/18 10:43 POC ABG pO2 112 (80-105) H 01/09/18 10:43 POC ABG HCO3 27.9 01/09/18 10:43 POC ABG Total CO2 29 01/09/18 10:43 POC ABG O2 Sat 99 01/09/18 10:43 POC ABG Base Excess 4 01/09/18 10:43 FiO2 30 % 01/09/18 10:43 Sodium 140 mmol/L (137-145) 01/15/18 05:40 Potassium 3.7 mmol/L (3.6-5.0) 01/15/18 05:40 Chloride 96.1 mmol/L (98-107) L 01/15/18 05:40 Carbon Dioxide 32 mmol/L (22-30) H 01/15/18 05:40 Anion Gap 16 mmol/L 01/15/18 05:40 BUN 9 mg/dL (9-20) 01/15/18 05:40 Creatinine 0.6 mg/dL (0.8-1.5) L 01/15/18 05:40 Estimated GFR > 60 ml/min 01/15/18 05:40 BUN/Creatinine Ratio 15 % 01/15/18 05:40 Glucose 90 mg/dL (75-100) 01/15/18 05:40 Hemoglobin A1c 5.9 % (4-6) 01/08/18 00:09 Lactic Acid 1.10 mmol/L (0.7-2.0) 01/09/18 15:10 Calcium 8.9 mg/dL (8.4-10.2) 01/15/18 05:40 Total Bilirubin 0.30 mg/dL (0.1-1.2) 01/08/18 04:59 AST 31 units/L (5-40) 01/08/18 04:59 ALT 19 units/L (7-56) 01/08/18 04:59 Alkaline Phosphatase 77 units/L (35-129) 01/08/18 04:59 Troponin T < 0.010 ng/mL (0.00-0.029) 01/07/18 21:11 C-Reactive Protein 5.70 mg/dL (0.00-1.30) H 01/13/18 14:36 Total Protein 5.8 g/dL (6.3-8.2) L D 01/08/18 04:59 Albumin 3.0 g/dL (3.9-5) L 01/08/18 04:59 Albumin/Globulin Ratio 1.1 % 01/08/18 04:59 Urine Color Yellow (Yellow) 01/09/18 01:45 Urine Turbidity Hazy (Clear) 01/09/18 01:45 Urine pH 6.0 (5.0-7.0) 01/09/18 01:45 Ur Specific [place] 1.007 (1.003-1.030) 01/09/18 01:45 Urine Protein <15 mg/dl mg/dL (Negative) 01/09/18 01:45 Urine Glucose (UA) >=500 mg/dL (Negative) 01/09/18 01:45 Urine Ketones Neg mg/dL (Negative) 01/09/18 01:45 Urine Blood Neg (Negative) 01/09/18 01:45 Urine Nitrite Neg (Negative) 01/09/18 01:45 Urine Bilirubin Neg (Negative) 01/09/18 01:45 Urine Urobilinogen < 2.0 mg/dL (<2.0) 01/09/18 01:45 Ur Leukocyte Esterase Lg (Negative) 01/09/18 01:45 Urine WBC (Auto) 8.0 /HPF (0.0-6.0) H 01/09/18 01:45 Urine RBC (Auto) < 1.0 /HPF (0.0-6.0) 01/09/18 01:45 U Epithel Cells (Auto) < 1.0 /HPF (0-13.0) 01/09/18 01:45 Urine Bacteria (Auto) 1+ /HPF (Negative) 01/09/18 01:45 Urine Mucus Few /HPF 01/09/18 01:45 Vancomycin Trough 34.7 ug/mL (5.0-20.0) H 01/11/18 20:22 Urine Opiates Screen Presumptive negative 01/08/18 04:56 Urine Methadone Screen Presumptive negative 01/08/18 04:56 Ur Barbiturates Screen Presumptive negative 01/08/18 04:56 Carbamazepine 4.8 ug/mL (4-12) 01/07/18 20:04 Ur Phencyclidine Scrn Presumptive negative 01/08/18 04:56 Ur Amphetamines Screen Presumptive negative 01/08/18 04:56 U Benzodiazepines Scrn Presumptive negative 01/08/18 04:56 Urine Cocaine Screen Presumptive negative 01/08/18 04:56 U Marijuana (THC) Screen Presumptive negative 01/08/18 04:56 Drugs of Abuse Note Disclamer 01/08/18 04:56 Plasma/Serum Alcohol < 0.01 % (0-0.07) 01/07/18 20:04
[2018-01-15] MEDS: MORPHINE IV PRN (17:28)
[2018-01-15] MEDS: COUMADIN PO SCH (18:36)
[2018-01-15] MEDS: MIRALAX 3350 PO SCH ×2 (18:36→22:55)
[2018-01-15] MEDS: SODIUM CHLORIDE FLUSH SYRINGE 10 ML IV SCH (22:55)
[2018-01-15] MEDS: TYLENOL PO PRN (23:56)
[2018-01-16] MEDS: KEPPRA PO SCH ×2 (06:14→12:15)
[2018-01-16 06:31] LABS: INR 2.83 (0.87-1.13)
--- NOTE | 2018-01-16 08:52 | Progress Note ---
Assessment and Plan Non-ischemic cardiomyopathy, LVEF 35-40% SC AICD, normal function Seizure disorder Paroxysmal atrial fibrillation on coumadin with a therapeutic INR Nausea and vomiting Recommendations: Continue current management with BB. Add ACEi as blood pressure will allow. Heart rate controlled with therapeutic INR No new cardiac recommendations Subjective Date of service: 01/16/18 Principal diagnosis: Acute Hypoxemic respiratory failure; Aspiration Pneumonia; Seizures Interval history: No acute events. Resting comfortably. No chest pain or SOB. Objective Vital Signs Temp Pulse Pulse Resp Resp BP BP 01/16/18 08:04 72 18 104/60 01/16/18 08:00 98.2 F 01/16/18 04:18 97.9 F 70 18 90/49 01/15/18 23:21 98.3 F 75 18 90/50 01/15/18 22:55 78 111/60 01/15/18 22:00 70 01/15/18 21:49 20 01/15/18 21:05 78 20 01/15/18 20:55 72 20 01/15/18 19:08 98.3 F 78 18 111/60 01/15/18 17:28 20 01/15/18 16:02 97.7 F 77 18 98/52 01/15/18 13:40 80 18 01/15/18 13:30 79 18 01/15/18 12:13 97.6 F 71 18 99/64 01/15/18 10:00 77 Pulse Ox 01/16/18 08:04 100 01/16/18 08:00 01/16/18 04:18 99 01/15/18 23:21 97 01/15/18 22:55 01/15/18 22:00 01/15/18 21:49 97 01/15/18 21:05 01/15/18 20:55 01/15/18 19:08 97 01/15/18 17:28 01/15/18 16:02 99 01/15/18 13:40 01/15/18 13:30 01/15/18 12:13 95 01/15/18 10:00 97 - Physical Examination General: No Apparent Distress HEENT: Positive: PERRL Neck: Positive: neck supple Neuro: Positive: Grossly Intact Abdomen: Positive: Soft Skin: Positive: Clear Extremities: Absent: edema - Labs and Meds Coagulation 07/07/18 Range/Units 04:52 PT 31.7 H (12.2-14.9) Sec. INR 2.83 H (0.87-1.13) - Imaging and Cardiology EKG: report reviewed (Ventricular paced rhythm 70/min) - Allied health notes Allied health notes reviewed: RT
[2018-01-16] MEDS: DUONEB *Not for PRN Use IH SCH (09:20)
[2018-01-16] MEDS: PEPCID PO SCH (09:50)
[2018-01-16] MEDS: ZOLOFT PO SCH (09:50)
[2018-01-16] MEDS: BABY ASPIRIN PO SCH (09:50)
[2018-01-16] MEDS: MIRALAX 3350 PO SCH (09:50)
[2018-01-16] MEDS: K-DUR PO SCH (09:50)
[2018-01-16] MEDS: SODIUM CHLORIDE FLUSH SYRINGE 10 ML IV SCH (09:52)
--- NOTE | 2018-01-16 10:08 | Discharge Summary ---
Providers - Providers Date of Admission: 01/07/18 23:50 Date of discharge: 01/16/18 Attending physician: KURT TREVIZO 01/07/18 20:39 Consult to Dietitian/Nutrition [CONS] Routine Physician Instructions: Reason For Exam: Reason for Consult: Write/Manage TPN/PPN 01/07/18 23:50 Consult to Physician [CONS] Routine Comment: Consulting Provider: KETURAH MERCADO Physician Instructions: Reason For Exam: Ac Resp failure 01/08/18 06:06 Consult to Dietitian/Nutrition [CONS] Routine Physician Instructions: Assess nutrtn needs, initiate, modify, manage TF Reason For Exam: Reason for Consult: Write/Manage Tube Feeding Reason for Consult: Write/Manage Tube Feeding 01/08/18 08:46 Consult to Physician [CONS] Routine Comment: Consulting Provider: SHAQUILLE HOUSTON Physician Instructions: Reason For Exam: sz 01/10/18 12:06 Consult to Physician [CONS] Routine Comment: Consulting Provider: KENNY RAMIREZ Physician Instructions: Reason For Exam: hx of afib, HF 01/14/18 11:56 Consult to Physician [CONS] Routine Comment: Consulting Provider: LILIA FREY Physician Instructions: Reason For Exam: Intractable nausea and vomiting Primary care physician: ALFONSO FINN Hospitalization Condition: Stable Hospital course: Mr. Zee is 37 yo man with a history of hypertension, cva, chf, seizures, dementia who presents with AMS after multiple seizures -Acute Encephalopathy: Sec to Seizures treated with IV Keppra -SIRS, poa with early sepsis due to aspiration pneumonitis: treated with abx, d/ c Cefepime -Status Epilepticus s/p Intubation and Extubation: IV Keppra, IV Ativan prn -Hyperglycemia: Check A1c==>normal -HTN: adjust -Depression: Sertraline -p.Afib/aflutter: cont Warfarin with monitoring -DVT prophylaxis: on Warfarin -Acute on chronic systolic Decompensated heart failure, resolved -Acute LUE SVT: already of Warfarin -Non ischemic Cardiomyopathy, normal coronaries by [facility] 10/2014, EF 35-40% by echo this admission -Single chamber ICD ([employer]): interrogated -History of CVA/ Prior right MCA/CVA -Hypokalemia: replace and recheck n/v yesterday obtained KUB==>unremarkable except Constipation, Lactulose did not help and patient is still nauseated: plan, give dulcolax suppository, start clear liquids, consult GI for intractable nausea. Once n/v resolved, home with oral keppra. N/V resolved, GI evaluated and doesn't plan on any procedure, ordered daily Miralax. During hospital coarse, patient had episodes of hypotension 84/48, received IV normal saline boluses of 250mg x 2. Stopped iv lasix 60mg, stopped Lisinopril, continue coreg 3.125mg bid. Recheck bp, now stable with adjustment of antihypertensives, he is tolerating a diet Disposition: DC/TX-06 HOME UNDER HOME [facility] Time spent for discharge: 35 minutes Core Measure Documentation - Palliative Care Palliative Care/ Comfort Measures: Not Applicable - Core Measures Any of the following diagnoses?: DVT/PE, heart failure - VTE Discharge Requirements Deep Vein Thrombosis/Pulmonary Embolism Present on Admission: Yes Has pt received <5 days of overlap therapy or INR<2.0: Yes Anticoagulant overlap therapy prescribed at discharge: No Contraindication No Overlap Therapy order at DC: Not Indicated - Heart Failure Discharge Requirements BRIT/ARB for LVSD if EF <40%: No Reason for no BRIT/ARB: Hypotension Beta griselda at discharge: No Reason for no beta griselda on DC: Hypotension Exam - Physical Exam Narrative exam: GEN: WDWN, NAD, Awake, Alert, confused HEENT: NCAT, EOMI, PERRL, OP Clear NECK: supple, no adenopathy, no thyromegaly, no JVD CVS/HEART: irreg irregular, normal S1S2, pulses present bilaterally CHEST/LUNGS: CTA B, Symmetrical chest expansion, good air entry bilaterally GI/Abdomen: soft, NTND, good bowel sounds, no guarding or rebound /Bladder: no suprapubic tenderness, no CVA or paraspinal tenderness EXT/Skin: no c/c/e, no obvious rash Neuro: CN 2-12 grossly intact, doesn't follow commands Psych: calm - Constitutional Vitals: Temp Pulse Resp BP Pulse Ox 98.2 F 75 18 104/60 100 01/16/18 08:00 01/16/18 09:33 01/16/18 09:33 01/16/18 08:04 01/16/18 08:04 Plan Activity: up only with assistance, fall precautions, other (no strenous activities, and seizure precaution) Diet: low salt Special Instructions: record daily BP diary (hold all blood pressure medications if systolic (top number) is less than 100) Additional Instructions: Do NOT take any blood pressure medications if systolic (top number) is less than 100. SEE Dr. Frey for the constipation Follow up with: ALFONSO FINN MD [Primary Care Provider] - 3-5 Days KENNY RAMIREZ MD [Staff Physician] - 7 Days LILIA FREY MD [Staff Physician] - 7 Days Forms: Warfarin Discharge Instruction Prescriptions: ALBUTEROL NEB's [Proventil 0.083% NEBS] 2.5 mg IH Q4HRT PRN #30 nebu PRN Reason: Shortness Of Breath Bisacodyl [Dulcolax suppos] 10 mg AK ONCE PRN #10 supp.rect PRN Reason: Constipation carBAMazepine [TEGretol] 100 mg PO BID #60 tab.chew levETIRAcetam [Keppra TAB] 1,000 mg PO BID #60 tab Polyethylene Glycol 3350 [Miralax 3350] 17 gm PO BID 3 Days powd.pack Potassium Chloride [K-Dur] 10 meq PO BID #60 tablet Sertraline [Zoloft] 25 mg PO QDAY #30 tablet Warfarin [Coumadin] 5 mg PO DAILY@1700 #30 tablet Ipratropium/Albuterol Sulfate [DUONEB *Not for PRN Use*] 1 ampul IH TIDRT PRN 30 Days ampul.neb PRN Reason: Shortness Of Breath
[2018-01-16] MEDS ORDERED: DULCOLAX PR ONE (10:09)
[2018-01-16] MEDS: COREG PO SCH (10:12)
[2018-01-16 12:19] VITALS: BP 107/71
== END 2018-01-16 12:41 | disposition home health service (06) | DRG 871 ==
LOC: ED 19:35 → CC1 23:50 → 4A 01-10 12:25 → CC1 01-10 12:47 → 4A 01-10 13:18
PROVIDERS: ADMIT Internal Medicine; ATTEND Internal Medicine
PROC: 5A1945Z Respiratory Ventilation, 24-96 Consecutive Hours (ICD-10-PCS; principal; 2018-01-07)
PROC: 0BH17EZ Insertion of Endotracheal Airway into Trachea, Via Natural or Artificial Opening (ICD-10-PCS; 2018-01-07)
PROC: 4A033R1 Measurement of Arterial Saturation, Peripheral, Percutaneous Approach (ICD-10-PCS; 2018-01-07)
PROC: 02HV33Z Insertion of Infusion Device into Superior Vena Cava, Percutaneous Approach (ICD-10-PCS; 2018-01-07)
PROC: B548ZZA Ultrasonography of Superior Vena Cava, Guidance (ICD-10-PCS; 2018-01-07)
DX: A41.9 Sepsis, unspecified organism (principal); J96.01 Acute respiratory failure with hypoxia; J69.0 Pneumonitis due to inhalation of food and vomit; I50.43 Acute on chronic combined systolic (congestive) and diastolic (congestive) heart failure; D68.9 Coagulation defect, unspecified; G40.201 Localization-related (focal) (partial) symptomatic epilepsy and epileptic syndromes with complex partial seizures, not intractable, with status epilepticus; I42.9 Cardiomyopathy, unspecified; E87.1 Hypo-osmolality and hyponatremia; I42.0 Dilated cardiomyopathy; Z79.82 Long term (current) use of aspirin; Z79.899 Other long term (current) drug therapy; I11.0 Hypertensive heart disease with heart failure; Z86.73 Personal history of transient ischemic attack (TIA), and cerebral infarction without residual deficits; F03.90 Unspecified dementia, unspecified severity, without behavioral disturbance, psychotic disturbance, mood disturbance, and anxiety; Z95.810 Presence of automatic (implantable) cardiac defibrillator; F32.9 Major depressive disorder, single episode, unspecified; D72.829 Elevated white blood cell count, unspecified; E11.65 Type 2 diabetes mellitus with hyperglycemia; J20.9 Acute bronchitis, unspecified; I48.0 Paroxysmal atrial fibrillation; I27.20 Pulmonary hypertension, unspecified; R13.12 Dysphagia, oropharyngeal phase
CPT/HCPCS: 36415; 36600; 70450; 71045; 74018; 80048; 80053; 80156; 80202; 80307; 80320; 81001; 82140; 82803; 83036; 84484; 85025; 85027; 85610; 86140; 87070; 87205; 93005; 93010; 93306; 94002; 94003; 94640; 94760; 95819; 96365; 96366; 96367; 96372; 96375; G0480; J0171; J0692; J1644; J1940; J1953; J2060; J2270; J2405; J2543; J2704; J3370; J7030; J7040; J7042; J7050; J7070; Q2009

== ENCOUNTER 2019-10-10 12:31 | Emergency (ER) | payer MEDICARE ==
[2019-10-10] MEDS ORDERED: BUTALB/ACETAMINOPHEN/CAFFEINE TAB PO ONE (13:27)
[2019-10-10] MEDS ORDERED: levETIRAcetam 1000 MG/NS 0.75% 1,000 MG/100 ML BAG IV ONE (13:28)
--- NOTE | 2019-10-10 13:36 | Emergency Department Report ---
HPI - General Time Seen by Provider: 10/10/19 13:18 - HPI HPI: Room 19 The patient is a 38-year-old male present with a chief complaint of seizure. Per EMS the patient had a seizure and was found postictal by the sister went to her and called EMS. 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 - Surgical History Hx Pacemaker: Yes Hx Internal Defibrillator: Yes - Family History Family history: no significant - Social History Smoking Status: Never Smoker Substance Use Type: None - Medications Home Medications: Home Medications Medication Instructions Recorded Confirmed Last Taken Type Famotidine [Pepcid] 1 tab PO DAILY #30 tablet 09/17/16 03/09/18 Unknown Rx ALBUTEROL NEB's [Proventil 0.083% 2.5 mg IH Q4HRT PRN #30 nebu 01/16/18 03/09/18 Unknown Rx NEBS] Aspirin [Aspirin BABY CHEW TAB] 81 mg PO QDAY #30 tab 01/16/18 03/09/18 Unknown Rx Ipratropium/Albuterol Sulfate 1 ampul IH TIDRT PRN 30 Days 01/16/18 03/09/18 Unknown Rx [DUONEB *Not for PRN Use*] ampul.neb Sertraline [Zoloft] 25 mg PO QDAY #30 tablet 01/16/18 03/09/18 Unknown Rx lisinopriL [Zestril TAB] 5 mg PO QDAY 03/09/18 03/09/18 Unknown History AtorvaSTATin [Lipitor] 40 mg PO QHS #30 tablet 03/23/18 Unknown Rx Lacosamide [Vimpat] 200 mg PO Q12HR #60 tablet 03/23/18 Unknown Rx Meclizine [Antivert] 25 mg PO DAILY #30 tablet 03/23/18 Unknown Rx Warfarin [Coumadin] 10 mg PO DAILY@1700 #20 tablet 03/23/18 Unknown Rx carBAMazepine [TEGretol] 100 mg PO BID #60 tab.chew 03/23/18 Unknown Rx carvediloL [Coreg] 3.125 mg PO BID #60 tablet 03/23/18 Unknown Rx chlorproMAZINE [Thorazine] 10 mg PO Q4H PRN #20 tablet 03/23/18 Unknown Rx levETIRAcetam [Keppra TAB] 1,000 mg PO BID #60 tab 03/23/18 Unknown Rx oxyCODONE /ACETAMINOPHEN [Percocet 1 tab PO BID PRN #10 tablet 03/23/18 Unknown Rx 5/325] Butalb/Acetaminophen/Caffeine 1 - 2 cap PO Q8HR PRN #10 cap 10/10/19 Unknown Rx [Fioricet 50-300-40 mg CAP] Ondansetron [Zofran ODT TAB] 8 mg PO Q8HR #20 tab.rapdis 10/10/19 Unknown Rx ED Review of Systems ROS: Stated complaint: POSS SEIZURE/FALL Other details as noted in HPI Constitutional: no symptoms reported Eyes: denies: eye pain ENT: denies: throat pain Respiratory: no symptoms reported Cardiovascular: denies: chest pain Endocrine: no symptoms reported Neurological: headache, other (Seizure) Physical Exam - Physical Exam Vital Signs: Vital Signs 10/10/19 10/10/19 10/10/19 13:00 13:15 13:30 Pulse Rate 80 80 83 Respiratory 15 20 Rate Blood Pressure 139/78 150/87 O2 Sat by Pulse 95 100 Oximetry 10/10/19 10/10/19 13:45 14:00 Pulse Rate 80 77 Respiratory 17 25 H Rate Blood Pressure 141/81 126/76 O2 Sat by Pulse 92 94 Oximetry Physical Exam: GENERAL: The patient is well-developed well-nourished male lying on stretcher not appearing to be in acute distress. [] HEENT: Normocephalic. Atraumatic. Extraocular motions are intact. Patient has moist mucous membranes. NECK: Supple. Trachea midline CHEST/LUNGS: Clear to auscultation. There is no respiratory distress noted. HEART/CARDIOVASCULAR: Regular. There is no tachycardia. There is no gallop rub or murmur. ABDOMEN: Abdomen is soft, nontender. Patient has normal bowel sounds. There is no abdominal distention. SKIN: There is no rash. There is no edema. There is no diaphoresis. NEURO: The patient is awake, alert, and oriented. The patient is cooperative. The patient has residual left-sided weakness from previous CVA. The patient has normal speech but is sometimes difficult to understand. There is no slurred speech. MUSCULOSKELETAL: There is no evidence of acute injury. ED Medical Decision Making - Lab Data Result diagrams: 10/10/19 13:51 10/10/19 15:28 Laboratory Tests 10/10/19 10/10/19 10/10/19 13:51 13:51 13:51 WBC 9.6 RBC 4.66 Hgb 14.1 Hct 42.0 MCV 90 MCH 30 MCHC 34 RDW 12.8 L Plt Count 214 Add Manual Diff Complete Total Counted 100 Seg Neutrophils % Air Export Agent Seg Neuts % (Manual) 98.0 H Band Neutrophils % 0 Lymphocytes % (Manual) 1.0 L Reactive Lymphs % (Man) 0 Monocytes % (Manual) 1.0 Eosinophils % (Manual) 0 Basophils % (Manual) 0 Metamyelocytes % 0 Myelocytes % 0 Promyelocytes % 0 Blast Cells % 0 Nucleated RBC % Not Reportable Seg Neutrophils # Man 9.4 H Band Neutrophils # 0.0 Lymphocytes # (Manual) 0.1 L Abs React Lymphs (Man) 0.0 Monocytes # (Manual) 0.1 Eosinophils # (Manual) 0.0 Basophils # (Manual) 0.0 Metamyelocytes # 0.0 Myelocytes # 0.0 Promyelocytes # 0.0 Blast Cells # 0.0 WBC Morphology Not Reportable Hypersegmented Neuts Not Reportable Hyposegmented Neuts Not Reportable Hypogranular Neuts Not Reportable Smudge Cells Not Reportable Toxic Granulation Not Reportable Toxic Vacuolation Not Reportable Dohle Bodies Not Reportable Pelger-Huet Anomaly Not Reportable Son Rods Not Reportable Platelet Estimate Consistent w auto Clumped Platelets Not Reportable Plt Clumps, EDTA Not Reportable Large Platelets Not Reportable Giant Platelets Not Reportable Platelet Satelliting Not Reportable Plt Morphology Comment Not Reportable RBC Morphology Not Reportable Dimorphic RBCs Not Reportable Polychromasia Not Reportable Hypochromasia Not Reportable Poikilocytosis Not Reportable Anisocytosis Not Reportable Microcytosis Not Reportable Macrocytosis Not Reportable Spherocytes Not Reportable Pappenheimer Bodies Not Reportable Sickle Cells Not Reportable Target Cells Not Reportable Tear Drop Cells Not Reportable Ovalocytes Few Helmet Cells Not Reportable Cruz-Gasquet Bodies Not Reportable [place] Rings Not Reportable Avon Cells 2+ Bite Cells Not Reportable Crenated Cell Not Reportable Elliptocytes Not Reportable Acanthocytes (Spur) Few Rouleaux Not Reportable Hemoglobin C Crystals Not Reportable Schistocytes Not Reportable Malaria parasites Not Reportable Tono Bodies Not Reportable Hem Pathologist Commnt No PT INR APTT Sodium TNR Potassium TNR Chloride TNR Carbon Dioxide TNR Anion Gap TNR BUN TNR Creatinine TNR Estimated GFR TNR BUN/Creatinine Ratio TNR Glucose TNR Calcium TNR Magnesium 2.10 10/10/19 10/10/19 13:51 15:28 WBC RBC Hgb Hct MCV MCH MCHC RDW Plt Count Add Manual Diff Total Counted Seg Neutrophils % Seg Neuts % (Manual) Band Neutrophils % Lymphocytes % (Manual) Reactive Lymphs % (Man) Monocytes % (Manual) Eosinophils % (Manual) Basophils % (Manual) Metamyelocytes % Myelocytes % Promyelocytes % Blast Cells % Nucleated RBC % Seg Neutrophils # Man Band Neutrophils # Lymphocytes # (Manual) Abs React Lymphs (Man) Monocytes # (Manual) Eosinophils # (Manual) Basophils # (Manual) Metamyelocytes # Myelocytes # Promyelocytes # Blast Cells # WBC Morphology Hypersegmented Neuts Hyposegmented Neuts Hypogranular Neuts Smudge Cells Toxic Granulation Toxic Vacuolation Dohle Bodies Pelger-Huet Anomaly Son Rods Platelet Estimate Clumped Platelets Plt Clumps, EDTA Large Platelets Giant Platelets Platelet Satelliting Plt Morphology Comment RBC Morphology Dimorphic RBCs Polychromasia Hypochromasia Poikilocytosis Anisocytosis Microcytosis Macrocytosis Spherocytes Pappenheimer Bodies Sickle Cells Target Cells Tear Drop Cells Ovalocytes Helmet Cells Cruz-Gasquet Bodies [place] Rings [place] Cells Bite Cells Crenated Cell Elliptocytes Acanthocytes (Spur) Rouleaux Hemoglobin C Crystals Schistocytes Malaria parasites Tono Bodies Hem Pathologist Commnt PT 17.1 H INR 1.37 H APTT 33.7 Sodium 136 L Potassium 4.2 Chloride 96.4 L Carbon Dioxide 27 Anion Gap 17 BUN 16 Creatinine 0.7 L Estimated GFR > 60 BUN/Creatinine Ratio 23 Glucose 131 H Calcium 9.4 Magnesium - Differential Diagnosis Seizure Critical care attestation.: If time is entered above; I have spent that time in minutes in the direct care of this critically ill patient, excluding procedure time. ED Disposition Clinical Impression: Seizure Disposition: DC-01 TO HOME OR SELFCARE Is pt being admited?: No Does the pt Need Aspirin: No Condition: Stable Instructions: Epilepsy (ED) Additional Instructions: Return to the emergency department should you develop worsening symptoms, inability to tolerate food or liquids, high fever or any other concerns Prescriptions: Butalb/Acetaminophen/Caffeine [Fioricet 50-300-40 mg CAP] 1 - 2 cap PO Q8HR PRN #10 cap PRN Reason: Headache Ondansetron [Zofran ODT TAB] 8 mg PO Q8HR #20 tab.alberta Referrals: NEMESIO KNOX [Other] - 3-5 Days Time of Disposition: 16:20
[2019-10-10 14:22] LABS: Hemoglobin 14.1 gm/dl (11.8-15.2); Mean Corpuscular HGB Conc 34 % (32-34); Mean Corpuscular Volume 90 fl (84-94); Platelet Count 214 K/mm3 (140-440); Red Blood Count 4.66 M/mm3 (3.65-5.03); Red Cell Distribution Width 12.8 % (13.2-15.2)
[2019-10-10 14:34] LABS: INR 1.37 (0.87-1.13)
[2019-10-10 14:35] LABS: Partial Thromboplastin Time 33.7 Sec. (24.2-36.6)
[2019-10-10 14:36] LABS: Hemolysis Index 1035
[2019-10-10 14:41] LABS: Calcium TNR mg/dL (8.4-10.2)
[2019-10-10 14:43] LABS: BUN/Creatinine Ratio TNR; Blood Urea Nitrogen TNR mg/dL (9-20)
[2019-10-10 14:53] LABS: Basophils % (Manual) 0 % (0.0-1.8); Burr Cells 2+; Eosinophils % (Manual) 0 % (0.0-4.3); Ovalocytes Few; Total Cells Counted 100
[2019-10-10 14:54] LABS: Platelet Estimate Consistent w Auto
[2019-10-10 16:00] LABS: BUN/Creatinine Ratio 23; Blood Urea Nitrogen 16 mg/dL (9-20); Calcium 9.4 mg/dL (8.4-10.2); Hemolysis Index 11
[2019-10-10] MEDS ORDERED: ACETAMINOPHEN 325 MG TAB ONE (17:14)
[2019-10-10] MEDS ORDERED: ONDANSETRON 4 MG ODT TAB ONE (17:14)
[2019-10-10] MEDS ORDERED: ACETAMINOPHEN 325 MG TAB PO ONE (17:19)
[2019-10-10] MEDS ORDERED: ONDANSETRON 4 MG ODT TAB PO ONE (17:20)
[2019-10-10 17:33] VITALS: BP 123/78
== END 2019-10-10 17:35 | disposition home or self-care (01) ==
LOC: ED 12:31
DX: R56.9 Unspecified convulsions (principal); I11.0 Hypertensive heart disease with heart failure; I50.9 Heart failure, unspecified; Z86.73 Personal history of transient ischemic attack (TIA), and cerebral infarction without residual deficits; F03.90 Unspecified dementia, unspecified severity, without behavioral disturbance, psychotic disturbance, mood disturbance, and anxiety
CPT/HCPCS: 36415; 80048; 83735; 85007; 85025; 85610; 85730; 96374; 99284; J1953; Q0162